=== PATIENT | female | born 1945 | race Caucasian/White ===

== ENCOUNTER 2018-11-11 14:00 | Outpatient (RCR) | payer MEDICARE, OTHER, SELFPAY ==
--- NOTE | 2018-08-05 16:04 | PR.REVALNOTE ---
Current Diagnoses Chronic obstructive pulmonary disease, unspecified (08/05/18) Provider Team Visit Care Team Role Provider Type Kurt Cartagena MD Attending Provider Physician Primary Care Provider Specialty: Family Practice Address: [address] [place], [address] Email: [email or web address] Re-Evaluation [facility] Pul[facility] Rehab. Re-Assessment Start: 06/07/18 08:21 Freq: Status: Active Protocol: Document 08/05/18 15:54 JWS (Rec: 08/05/18 16:03 [email or web address] [email or web address]) MS Exercise Re-Assessment New Session Number 1-10 Type Nustep Treadmill METs (resistance level) 2.54NS, 2.27TM % Improvement 8%NS, 8%TM Interval Training Yes: 3.60 METS NS Shortness of Breath with Exercise Yes Desaturation with Exercise No Free Weight Yes: 2# 12r 2s Band Level Yes: #3 Intervention initiate independent exercise 1-2x/week Toward Target Goals initiate independent exercise- goal not met MS Nutrition Re-Assessment Hypoxia Re-Assessment does not require supplemental oxygen MS Education Re-Assessment Topics Breathing Retraining Bronchial Hygiene Benefits of Exercise Activities of daily living/ Leisure Activities Goals Pt will Master PLB and Diaphragmatic Breathing Pt will Master Energy Conserving Techniques Pt will learn exercise safety Pt will continue ED topics until completion MS Psychosocial Re-Assessment Patient in Class Regularly Yes Progress Towards Goal patient attends 2x/week due to distance from MS gym Interventions Pt attending class regularly Additional Comment patient talked to about initiating independent exercise Goals Participate in social and educational discussion Received emotional support from family/friends
== END 2018-11-22 15:09 ==
LOC: PUL 14:00
PROVIDERS: PCP Family Medicine; Visit Provider Family Medicine
DX: J44.9 Chronic obstructive pulmonary disease, unspecified (principal)
CPT/HCPCS: G0424

== ENCOUNTER → 2018-12-30 14:10 | Outpatient (CLI) | payer MEDICARE, OTHER, SELFPAY ==
--- NOTE | 2018-12-30 | DI.RAD.S_ITS ---
PROCEDURE: XR HIP RT 1V INDICATIONS: LEFT KNEE PAIN, RT HIP PAIN TECHNIQUE: 2 views of the hip were acquired. COMPARISON: None. FINDINGS: Bones: No fractures or dislocations. No suspicious bony lesions. The visualized pelvic ring appears intact. There is severe hip joint degeneration bilaterally. Mild to moderate sacroiliac joint degeneration bilaterally is noted. Soft tissues: No suspicious soft tissue calcifications or masses. 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 Dictated by: Roland White M.D. on 12/30/2018 at 16:50 Approved by: Roland White M.D. on 12/30/2018 at 21:44
--- NOTE | 2018-12-30 | DI.RAD.S_ITS ---
PROCEDURE: XR KNEE LT 3V INDICATIONS: LEFT KNEE PAIN, RT HIP PAIN TECHNIQUE: 3 views of the knee were acquired. COMPARISON: None. FINDINGS: Bones: No fractures or dislocations. No suspicious bony lesions. There is severe tricompartmental knee joint degeneration. Soft tissues: Small joint effusion. No suspicious soft tissue calcifications. IMPRESSION: Severe tricompartmental knee joint degeneration. Dictated by: Roland White M.D. on 12/30/2018 at 16:48 Approved by: Roland White M.D. on 12/30/2018 at 16:49
== END ==
PROVIDERS: PCP Family Medicine; Visit Provider Family Medicine
DX: M25.562 Pain in left knee (principal); M25.551 Pain in right hip; M17.12 Unilateral primary osteoarthritis, left knee; M16.0 Bilateral primary osteoarthritis of hip; M47.898 Other spondylosis, sacral and sacrococcygeal region
CPT/HCPCS: 73501; 73562

== ENCOUNTER → 2019-03-15 11:59 | Outpatient (CLI) | payer MEDICARE, OTHER, SELFPAY ==
--- NOTE | 2019-03-15 | DI.MG.S_ITS ---
BILATERAL DIGITAL SCREENING MAMMOGRAM 3D/2D WITH CAD: 03/15/2019 CLINICAL: Routine screening. Family history of breast cancer. Comparison is made to exams dated: 02/06/2017 mammogram, 02/08/2015 mammogram, and 10/02/2011 mammogram - [facility]. There are scattered fibroglandular elements in both breasts. Current study was also evaluated with a Computer Aided Detection (CAD) system. No significant masses, calcifications, or other findings are seen in either breast. There has been no significant interval change. IMPRESSION: NEGATIVE There is no mammographic evidence of malignancy. A 1 year screening mammogram is recommended. This exam was interpreted at Station ID: [id number]. NOTE: For mammograms, a report in lay terms will be sent to the patient. Approximately 15% of breast malignancies will not be visualized mammographically. In the management of a palpable breast mass, a negative mammogram must not discourage biopsy of a clinically suspicious lesion. Electronically Signed By: Himanshu roca/alem:03/15/2019 17:47:53 letter sent: Normal Exam ACR BI-RADS Category 1: Negative [id number]
== END ==
PROVIDERS: Visit Provider Student in an Organized Health Care Education/Training Program
DX: Z12.31 Encounter for screening mammogram for malignant neoplasm of breast (principal); Z80.3 Family history of malignant neoplasm of breast
CPT/HCPCS: 77063; 77067

== ENCOUNTER → 2019-08-23 14:38 | Outpatient (CLI) | payer MEDICARE, OTHER, SELFPAY | PROVIDERS: PCP Student in an Organized Health Care Education/Training Program; Referring Provider Student in an Organized Health Care Education/Training Program; Visit Provider Student in an Organized Health Care Education/Training Program | DX: Z78.0 Asymptomatic menopausal state (principal); Z90.722 Acquired absence of ovaries, bilateral; Z87.891 Personal history of nicotine dependence; Z85.43 Personal history of malignant neoplasm of ovary | CPT/HCPCS: 77080 ==

== ENCOUNTER → 2020-11-14 12:17 | Outpatient (CLI) | payer MEDICARE, OTHER, SELFPAY ==
--- NOTE | 2020-11-14 | DI.RAD.S_ITS ---
PROCEDURE: XR KNEE LT 3V INDICATIONS: LEFT KNEE PAIN TECHNIQUE: 3 views of the knee were acquired. COMPARISON: [facility], CR, XR KNEE LT 3V, 12/30/2018, 14:18. FINDINGS: Bones: No fractures or dislocations. No suspicious bony lesions. Note is made of near severe medial compartment joint space narrowing with near ieag-os-gecw articulation. There is mild to moderate such degeneration at the lateral compartment and also at the patellofemoral joint. Soft tissues: No joint effusion. No suspicious soft tissue calcifications. IMPRESSION: Near severe medial compartment knee joint osteoarthritis, significantly less degenerative change is present over the remainder of the knee. Dictated by: Rebel Dang M.D. on 11/14/2020 at 13:53 Approved by: Rebel Dang M.D. on 11/14/2020 at 13:54
== END ==
PROVIDERS: PCP Student in an Organized Health Care Education/Training Program; Referring Provider Student in an Organized Health Care Education/Training Program; Visit Provider Student in an Organized Health Care Education/Training Program
DX: M25.562 Pain in left knee (principal); M17.12 Unilateral primary osteoarthritis, left knee
CPT/HCPCS: 73562

== ENCOUNTER → 2022-03-25 08:07 | Outpatient (CLI) | payer MEDICARE, OTHER, SELFPAY ==
--- NOTE | 2022-03-25 | DI.NM.S_ITS ---
PROCEDURE: NM BALBIR PERF SPECT R&S PHARM Rest and pharmacological stress myocardial perfusion SPECT with gated imaging and ejection fraction RADIOPHARMACEUTICAL: 12.1 mCi Tc-99m tetrafosmin IV at rest and 25.7 mCi Tc-99m tetrafosmin IV at peak effect of pharmacological stress. Dpm-dhg-yvimefps was performed. INDICATIONS: Other forms of dyspnea TECHNIQUE: Radiopharmaceutical was injected at peak stress test, and also at rest. SPECT images were obtained. SPECT myocardial perfusion images were displayed in short axis, horizontal long axis, and vertical long axis views. Gated images were reviewed using [email or web address] software. COMPARISON: None. CARDIAC STRESS: A pharmacologic stress test was performed under the supervision of an attending staff, using an infusion of lexiscan 0.4m IV X1. Hemodynamic data: There is normal blood pressure and heart rate response to pharmacologic stress. Symptoms: The patient denied anginal chest pain. Aminophylline: none EKG: No diagnostic changes of ischemia; no ectopy. FINDINGS: Raw data: There is good myocardial uptake of radiotracer. No significant motion artifacts. Left ventricle function: Gated images demonstrate normal left ventricular wall thickening. No segmental wall motion abnormalities. No transient ischemic dilation; TID is 0.92 (normal less than 1.3). Left ventricle resting end diastolic volume is 83 mL. Left ventricle stress ejection fraction is 91%; normal range is above 45%. Myocardial perfusion: There is normal distribution of activity in the right and left ventricular myocardium. No fixed or reversible perfusion defects. IMPRESSION: Low risk, normal pharmaceutical nuclear stress test 1) No perfusion evidence of ischemia or infarction. 2) Normal left ventricular size, wall motion, and systolic function (EF post stress 91%). 3) No angina during the study. 4) No ST changes with lexiscan. 5) No prior nuclear stress test available for comparison. Dictated by: Ibrahima Robert MD on 03/26/2022 at 13:58 Approved by: Ibrahima Robert MD on 03/26/2022 at 14:00
[2022-03-25 09:25] LABS: COVID19 -Nasal RAPID Negative (Negative)
== END ==
PROVIDERS: PCP Internal Medicine; Referring Provider Internal Medicine; Visit Provider Internal Medicine
DX: Z01.810 Encounter for preprocedural cardiovascular examination (principal); R06.09 Other forms of dyspnea; Z20.822 Contact with and (suspected) exposure to COVID-19
CPT/HCPCS: 78452; 87635; 93017; A9502; J2785

== ENCOUNTER → 2024-04-14 12:01 | Outpatient (CLI) | payer MEDICARE, OTHER, SELFPAY ==
--- NOTE | 2024-04-14 | DI.CT.S_ITS ---
PROCEDURE: CT UE RT WO CON INDICATIONS: Pain in right shoulder TECHNIQUE: Noncontrast 0.75 mm thick sections acquired from the acromioclavicular joint to the inferior scapula, with coronal and sagittal reformatting. COMPARISON: [facility] Outside Film, CR, XR SHOULDER 2+ VIEWS RIGHT, 04/01/2024, 14:26. FINDINGS: Image quality: Excellent. Bones: Moderate to severe acromioclavicular joint osteoarthritic changes are seen with near complete loss of joint space, extensive subchondral sclerosis and marginal osteophyte formation. Severely comminuted fracture involving humeral head is seen with fracture line extending to involve growth greater and lesser tuberosities. There is up to 7 mm superior and lateral displacement of greater tuberosity fractured fragment. Minimal medial displacement at lesser tuberosity fracture site is also seen. No other fracture or dislocation. No suspicious bony lesions. The visualized right upper to mid ribs are intact. Soft tissues: There is no definite full-thickness rotator cuff tendon rupture. No significant rotator cuff muscle atrophy is seen on sagittal images. There is moderate amount of joint effusion and subacromial subdeltoid bursal fluid suggestive of hemarthrosis. No calcified intra-articular loose bodies. The visualized right lung field is clear. IMPRESSION: 1. Acute comminuted and displaced fracture involving right proximal humeral shaft and humeral head as above. No other fracture or dislocation. No suspicious bony lesions. 2. Moderate to severe acromioclavicular joint osteoarthritis. 3. Moderate to large joint effusion and subacromial subdeltoid bursal fluid, no calcified loose bodies. No gross full-thickness rotator cuff tendon rupture. Dictated by: Diogo Marks M.D. on 04/14/2024 at 15:39 Approved by: Diogo Marks M.D. on 04/14/2024 at 15:43
== END ==
PROVIDERS: PCP Internal Medicine; Referring Provider Physician Assistant Medical; Visit Provider Physician Assistant Medical
DX: S42.351A Displaced comminuted fracture of shaft of humerus, right arm, initial encounter for closed fracture (principal); M19.011 Primary osteoarthritis, right shoulder; M25.511 Pain in right shoulder; M25.411 Effusion, right shoulder
CPT/HCPCS: 73200

== ENCOUNTER 2024-04-22 08:05 | Inpatient (IN) | payer MEDICARE, OTHER, SELFPAY ==
[2024-04-21 11:59] VITALS: BMI 32.9
[2024-04-22] VITALS (16 sets, daily range): BP systolic 128–164; BP diastolic 48–86; PULSE 84–118; RESP 14–22; TEMP 35.8–36.7; O2SAT 90–111; BMI 32.9; BMI 33.0
--- NOTE | 2024-04-22 | DI.RAD.S_ITS ---
PROCEDURE: XR SHOULDER RT 1V INDICATIONS: POST OP TECHNIQUE: Single views of the shoulder were acquired. COMPARISON: None. FINDINGS: Reverse total shoulder arthroplasty components are in place. The joint is grossly congruent on the single view. No unexpected fractures. Moderate degenerative change at the AC joint. Expected articular gas, fully inflated right lung, and overlying skin subhash are noted. IMPRESSION: Expected appearance post right reversed total shoulder arthroplasty Dictated by: Keila Oscar M.D. on 04/22/2024 at 16:11 Approved by: Keila Oscar M.D. on 04/22/2024 at 16:12
--- NOTE | 2024-04-22 | DI.RAD.S_ITS ---
PROCEDURE: XR SHOULDER LT 1V INDICATIONS: post op TECHNIQUE: Single views of the shoulder were acquired. COMPARISON: None. FINDINGS: Reverse total shoulder arthroplasty components are intact. The joint is grossly congruent. Impacted fracture at the surgical neck of the humerus is noted associated with the distal arthroplasty component. No evidence of shoulder separation. Expected articular gas, overlying skin subhash, and fully inflated left lung. IMPRESSION: Expected appearance of reverse total shoulder arthroplasty. Dictated by: Keila Oscar M.D. on 04/22/2024 at 16:09 Approved by: Keila Oscar M.D. on 04/22/2024 at 16:11
[2024-04-22] MEDS: LACTATED RINGERS 1,000 ML 42 ML IV (08:54)
[2024-04-22] MEDS: ACETAMINOPHEN 325 MG TABLET 975 MG PO (08:57)
--- NOTE | 2024-04-22 09:15 | PM.PREOP ---
Pre-operative Note Interval Note History & Physical reviewed/Exam performed by Physician: Yes Changes to H&P: No
--- NOTE | 2024-04-22 09:16 | EKG_ITS ---
[address] [address] Test Date: 2024-04-22 Pat Name: Sherin Carias Department: Room: 90F Gender: Female Regenerator Operator: Nancie CHANG : 1945 Requested By: Order Number: [id number] Reading MD: Zac Britton Measurements Intervals [place] Rate: 88 P: 67 OK: 156 QRS: 13 QRSD: 70 T: 24 QT: 350 QTc: 423 Interpretive Statements Sinus rhythm with marked sinus arrhythmia Electronically Signed On 04-25-2024 15:56:13 PDT by Zac Britton
[2024-04-22] MEDS: CEFAZOLIN 2 GM/100 ML PREMIX 100 ML IV ×2 (09:50→17:19)
[2024-04-22] MEDS: TRANEXAMIC ACID 1,000 MG in SODIUM CHLORIDE 0.9% 100 ML 200 MG IV ×2 (10:05→13:15)
--- NOTE | 2024-04-22 10:16 | SUR.OPER ---
Beach chair with Suman/Jeremy shoulder positioner. Lower body on padded OR bed. Head in foam padded head cradle, secured with straps. Non-operative arm secured <90 degrees abduction. Pillow under knees. Safety belt at thigh. Cloth tape over blanket over lower legs.
[2024-04-22] MEDS: BUPIVACAINE 0.25% (PF) 30 ML, EPINEPHrine 0.15 MG INJ (10:20)
[2024-04-22] MEDS: SODIUM CHLORIDE 0.9% 1,000 ML 42 ML IV (12:28)
--- NOTE | 2024-04-22 13:38 | PM.OP.1 ---
Operative Date/Time/Diagnoses Date of procedure: 04/22/24 Time of procedure: 13:38 Pre-op diagnosis: 1. Right proximal humerus fracture 2. Left proximal humerus fracture Post-op diagnosis: same Procedure & Clinicians Procedure: 1. Right reverse total shoulder arthroplasty for fracture 2. Left reverse total shoulder arthroplasty for fracture Same procedure as scheduled: Yes Indications: Indications: This is a 78-year-old female who has complex bilateral proximal humerus fractures. We discussed that in order to allow her to gain use of her shoulders prevent malunion and nonunion and avascular necrosis we would attempt to fix her left shoulder if not we would do a reverse, for her right shoulder due to the head splitting nature we were going to go straight to a reverse total shoulder arthroplasty. Risks and benefits were described including the risk of infection, bleeding, damage to internal structures including nerves. We also discussed the risk of failure of surgery and the need for revision surgery as well as the risk of anesthesia. The patient expressed understanding with these risks and wished to go forward with surgery. Surgeon: Valentín Monroy [employer] Export Clerk: Osiel Willingham Anesthesia Type: General Operative Notes Findings: Findings: Bilateral complex proximal humerus fracture with head splits Closure Type: primary Specimen(s): none sent Prosthetic devices, grafts, tissues, transplants, or devices: Tornier implants Right Base plate: standard 25 mm, +3 mm offset Glenosphere: Standard 36 mm Stem: Perform fracture stem size 14 Poly: +3 retentive Left Base plate: standard 25 mm, +3 mm offset Glenosphere: Standard 36 mm Stem: Perform fracture stem size 13 Poly: +3 retentive Estimated Blood Loss (mL): 400 Blood products transfused: none Procedure in detail: Patient was seen in the preoperative holding unit. The correct bilateral shoulders were identified and marked with my initials. Again we discussed the risks and benefits of surgery and they wished to go forward with surgery. The patient was brought back to the operating room and placed supine on the operating table. Smooth endotracheal intubation was performed by anesthesia. All prominences were padded and they were placed into the beach chair position. Intravenous antibiotics were given. The right shoulder was then prepped with the standard sterile preparation and draping. A time-out was then performed in my initials were again identified on the correct shoulder. 1 g of IV tranexamic acid was given. A standard deltopectoral incision was made. Skin flaps were made. The cephalic vein was identified and retracted laterally. This was protected throughout the remainder of the case. Sharp dissection was made along the deltoid, subacromial and subcoracoid space to release adhesions. The conjoined tendon was identified and the axillary nerve was palpated and continuous using the tug test. It was protected throughout the remainder of the case. A brown retractor was placed underneath the deltoid muscle and a darach retractor underneath the conjoint tendon. The subscapularis muscle was ntoed to be intact. The anterior circumflex artery and associated veins on the lower border of the subscapularis were identified and tied off using 0-Vicryl. The biceps tendon was identified in the bicipital groove. This was released from its sheath, and taken from its origin on the glenoid and tied into the pectoralis tendon for a solid tenodesis. I then performed a lesser tuberosity osteotomy. The coracohumeral ligament was released at the base of the coracoid. The shoulder was then dislocated. The humeral head was removed. The rotator cuff was noted to be intact. An intramedullary guide was used set at version of 20?. Using an oscillating saw a conservative humeral head cut was made for the remainder of the head. Impaction reamers were reamed up to a size 14 stem with a built-in angle of 140. A neck protector was placed. Attention was then turned to the glenoid. After retracting the humeral head posteriorly a circumferential release was performed of the capsule with protection of the axillary nerve. The labrum was then released starting at the biceps anchor and going around the rim a small amount of triceps was released from the inferior glenoid. A center guide pin was then placed using the guide, followed by Reamer. After adequate cartilage was removed the boss was reamed and the centeral hole was drilled and measured. The base plate was then implanted and screwed into place. The peripheral screws were then sequentially drilled, measured, and placed. A 36 standard glenosphere was then selected and screwed into place onto the base plate. Turning back to the humerus, the humeral head was delivered and trialed with a +3 retentive. The arm was taken through range of motion and this was felt to be stable. The trial was then removed and a dilute Betadine wash was then performed with 1 L of sterile saline. Before placing the final implant, drill holes were made in the bicipital groove for the subscapularis repair, and sutures were passed through the drill holes. The final stem was then impacted into the humerus. The shoulder was then reduced and again brought through range of motion and was felt to be stable. The lesser tuberosity osteotomy was then repaired using 3 modified racking hitch sutures. The deltopectoral interval was then closed with #2 Ethibond. The skin was closed with 2-0 vicryl and 3-0 Monocryl] followed by Aquacel dressing. Drapes were removed however the back table was kept sterile. Patient was then turned for the next procedure. Next procedure: Another timeout was performed and the left upper extremity was then prepped and draped in the standard sterile fashion. A standard deltopectoral incision was made in the left upper extremity. Skin flaps were made. The cephalic vein was identified and retracted laterally. This was protected throughout the remainder of the case. Sharp dissection was made along the deltoid, subacromial and subcoracoid space to release adhesions. The conjoined tendon was identified and the axillary nerve was palpated and continuous using the tug test. It was protected throughout the remainder of the case. A brown retractor was placed underneath the deltoid muscle and a darach retractor underneath the conjoint tendon. There was noted to be a 4 part fracture with a head split. The lesser tuberosity and greater tuberosity were freed of their adhesions and the humeral head was removed. The shaft was then broached up to a size 13 fracture stem. Attention was then turned to the glenoid. After retracting the humeral head posteriorly a circumferential release was performed of the capsule with protection of the axillary nerve. The labrum was then released starting at the biceps anchor and going around the rim a small amount of triceps was released from the inferior glenoid. A center guide pin was then placed using the guide, followed by Reamer. After adequate cartilage was removed the boss was reamed and the centeral hole was drilled and measured. The base plate was then implanted and screwed into place. The peripheral screws were then sequentially drilled, measured, and placed. A [36 standard] glenosphere was then selected and screwed into place onto the base plate. Turning back to the humerus, the humeral head was delivered and trialed with a +3 retentive. The arm was taken through range of motion and this was felt to be stable. The trial was then removed and a dilute Betadine wash was then performed with 1 L of sterile saline. Before placing the final implants, sutures were passed through the greater tuberosity and the shaft. The final implant was placed along with the polyethylene and the shoulder was reduced. The tuberosities were then repaired to each other and to the shaft. The skin was closed with 2-0 vicryl and [3-0 Monocryl] followed by Aquacel dressing. Patient was awoken from anesthesia and brought back to the postoperative recovery unit without issue. They were placed into a sling. Assisting participation: This operation could not have been safely performed (without compromising the technical results or length of the procedure) without the assistance of a skilled ophthalmology surgical technician. The ophthalmology surgical technician was medically necessary for proper positioning, retraction and manipulation of instruments, proper exposure, graft prep, and manipulation of tissue. Complications: none Post-operative Condition: stable Disposition: PACU Plan for aftercare: Postoperative instructions: Slings to remain on for 6 weeks. No external rotation past neutral for 6 weeks. Okay for the sling to come off for shower. Okay to shower over the Aquacel dressing. If any water gets underneath the dressing, remove the dressing. First postoperative visit in 2 weeks.
[2024-04-22] MEDS: OXYCODONE IR 5 MG TABLET PO (14:18)
[2024-04-22] MEDS: INSULIN REGULAR 100 UNIT/ML 3 ML VIAL IV (14:22)
[2024-04-22] MEDS: LACTATED RINGERS 1,000 ML 100 ML IV (15:19)
[2024-04-22 17:07] LABS: Add Manual Diff / Slide Review NO; Basophils Absolute Auto 100 /uL (0-100); Basophils Percent Auto 0.5 % (0-2); Eosinophils Absolute Auto 0 /uL (0-450); Hematocrit 27.6 % (36-46); Hemoglobin 8.8 g/dL (12.0-16.0); Lymphocytes Absolute Auto 1600 /uL (1100-4500); Lymphocytes Percent Auto 9.7 % (25-40); Mean Corpuscular HGB Conc 32.1 % (30-36); Mean Corpuscular Hemoglobin 29.3 PG (26-34); Mean Corpuscular Volume 91.3 fL (80-100); Monocytes Absolute Auto 1400 /uL (0-900); Monocytes Percent Auto 8.7 % (3-14); Neutrophils Absolute Auto 13000 /uL (1500-7000); Neutrophils Percent Auto 81.1 % (50-75); Platelet Count 537 X10^3/uL (150-400); Red Blood Cell Count 3.02 X10^6/uL (4.0-5.2); Red Cell Distribution Width 17.8 % (11.6-14.8)
[2024-04-22 17:18] LABS: Alanine Aminotransferase 15 IU/L (<35); Albumin 3.4 g/dL (3.5-5.0); Albumin Globulin Ratio 1.5 (1.0-2.8); Alkaline Phosphatase 146 U/L (38-126); Aspartate Aminotransferase 25 IU/L (14-36); BUN Creatinine Ratio 26.1 (6-22); Bilirubin Total 0.7 mg/dL (0.2-1.3); Blood Urea Nitrogen 31 mg/dL (7-17); Calcium 9.5 mg/dL (8.4-10.2); Carbon Dioxide 21 mmol/L (22-32); Chloride 103 mmol/L (98-107); Estimated Glomerular Filt Rate 46 mL/min (>60); Globulin 2.3 g/dL (1.7-4.1); Glucose 215 mg/dL (80-110); HEMOLYSIS 37 (0-50); Potassium 4.8 mmol/L (3.4-5.1); Sodium 136 mmol/L (137-145); Total Protein 5.7 g/dL (6.3-8.2)
[2024-04-22] MEDS: IBUPROFEN 400 MG TABLET PO (17:18)
--- NOTE | 2024-04-22 17:59 | PC.NURSE ---
patient request to have slings loosened off her neck, velcro straps unhooked.informed patient thet would need to be on when getting up. scd to right leg bp cuff to left leg. patient denies need for pain meds,wants to attempt to sleep.Call light within reach left hand.
--- NOTE | 2024-04-22 19:22 | PM.CN ---
History of Present Illness Consult details Date Patient Seen: 04/22/24 Time Patient Seen: 19:30 Chief complaint: INPT Reason for consult: Medical management Requesting provider: Valentín Monroy Narrative: 78-year-old woman under the primary care of Dr. Jesse Rossi underwent elective bilateral total shoulder arthroplasty today following bilateral proximal humeral fracture sustained in a recent fall in her garden at home on 04/01/2024, with uneventful surgical course. penitentiary facility placement is anticipated. She has type 2 diabetes mellitus, history of supraventricular tachycardia, hypertension and COPD, all of which have been stable and controlled. She is on Xarelto for history of possible left leg DVT following her left knee replacement last year. She is seen postoperatively without complaints, denying chest pain, breathing problems or nausea. Meds Home Medications and Allergies Home Medications Medication Instructions Recorded Confirmed Type cholecalciferol (vitamin D3) 125 125 mcg PO DAILY ##0 03/12/17 04/22/24 History mcg (5,000 unit) capsule omega [id number]-[id number]-fish oil 1,000 mg 1 cap PO DAILY ##0 03/12/17 04/21/24 History (120 mg-180 mg) capsule (Fish Oil) albuterol sulfate 90 mcg/actuation 2 puff inhalation 6XD PRN SOB 04/21/24 04/22/24 History aerosol inhaler atorvastatin 40 mg tablet 40 mg PO QPM 04/21/24 04/22/24 History glimepiride 4 mg tablet 4 mg PO DAILY 04/21/24 04/22/24 History hydrochlorothiazide 12.5 mg tablet 12.5 mg PO QAM 04/21/24 04/22/24 History losartan 25 mg tablet 25 mg PO DAILY 04/21/24 04/22/24 History metformin 1,000 mg tablet 1,000 mg PO BID 04/21/24 04/22/24 History rivaroxaban 10 mg tablet (Xarelto) 10 mg PO DAILY 04/21/24 04/21/24 History Allergies Allergy/AdvReac Type Severity Reaction Status Date / Time latex Allergy Mild ITCHING Verified 04/22/24 09:00 AND REDNESS oxycodone AdvReac Intermediate Nausea Verified 04/22/24 09:00 Review of Systems Review of Systems ROS: Yes All systems reviewed with the patient and are negative except as otherwise documented Exam Vital Signs (past 8 hours): - 04/22/24 13:47 04/22/24 13:55 04/22/24 14:05 Temperature 97.3 F L Pulse Rate 114 H 115 H 113 H Respiratory Rate 18 22 17 Blood Pressure 149/60 H 133/61 137/61 Pulse Oximetry 100 97 100 Oxygen Delivery Method Room Air Room Air Nasal Cannula Oxygen Flow Rate 04/22/24 14:10 04/22/24 14:24 04/22/24 14:32 Temperature Pulse Rate 94 H 104 H 109 H Respiratory Rate 19 17 14 Blood Pressure 148/48 H 130/79 156/75 H Pulse Oximetry 100 97 97 Oxygen Delivery Method Room Air Room Air Room Air Oxygen Flow Rate 04/22/24 14:46 04/22/24 14:55 04/22/24 15:05 Temperature 97.6 F 96.8 F L Pulse Rate 118 H 102 H 100 H Respiratory Rate 20 17 18 Blood Pressure 136/59 L 131/58 L 128/84 Pulse Oximetry 100 100 90 L Oxygen Delivery Method Room Air Room Air Oxygen Flow Rate 04/22/24 15:35 04/22/24 16:05 04/22/24 17:13 Temperature 96.4 F L 96.4 F L 96.6 F L Pulse Rate 96 H 108 H 97 H Respiratory Rate 19 16 18 Blood Pressure 145/77 H 145/74 H 141/73 H Pulse Oximetry 99 98 111 H Oxygen Delivery Method Oxygen Flow Rate 1 1 1 Oxygen Delivery Method Room Air Oxygen Flow Rate 1 Narrative Exam Narrative: GENERAL: This is a well-nourished, well-developed patient, in no apparent distress. EYES: Pupils equal round and reactive. Extraocular motions intact. No scleral icterus. No injection or drainage. ENT: Mucous membranes pink and moist. NECK: Trachea midline. No JVD, bruits or lymphadenopathy. Supple, nontender, no meningeal signs. CARDIOVASCULAR: Regular rate and rhythm without murmurs, gallops, or rubs. RESPIRATORY: Clear to auscultation. GASTROINTESTINAL: Abdomen soft, non-tender, nondistended. EXTREMITIES: No clubbing, cyanosis, or edema. MS: Bilateral arm slings in place, bilateral shoulder dressings are clean, dry and intact. NEUROLOGIC: Alert, oriented, speech fluent, full upper and lower motor strength, no focal deficits evident. DERMATOLOGIC: No rashes or skin lesions. Objective ECG Impression: Normal sinus rhythm with sinus arrhythmia at 88 beats per minute, no ischemic changes Imaging Right shoulder x-ray:: Radiologist's impression: Expected appearance post right reversed total shoulder arthroplasty Left shoulder x-ray:: Radiologist's impression: Expected appearance of reverse total shoulder arthroplasty. Labs 04/22/24 16:48 04/22/24 16:48 Labs: Laboratory Results - last 24 hr 04/22/24 16:48 WBC 16.0 H RBC 3.02 L Hgb 8.8 L Hct 27.6 L MCV 91.3 MCH 29.3 MCHC 32.1 RDW 17.8 H Plt Count 537 H Neut % (Auto) 81.1 H Lymph % (Auto) 9.7 L Andrew % (Auto) 8.7 Eos % (Auto) 0.0 L Baso % (Auto) 0.5 Neut # (Auto) 63526 H Lymph # (Auto) 1600 Andrew # (Auto) 1400 H Eos # (Auto) 0 Baso # (Auto) 100 Sodium 136 L Potassium 4.8 Chloride 103 Carbon Dioxide 21 L BUN 31 H Creatinine 1.19 H Estimated GFR 46 L BUN/Creatinine Ratio 26.1 H Glucose 215 H Hemoglobin A1c 7.0 H Calcium 9.5 Total Bilirubin 0.7 AST 25 ALT 15 Alkaline Phosphatase 146 H Total Protein 5.7 L Albumin 3.4 L Globulin 2.3 Albumin/Globulin Ratio 1.5 PFSH Medical History Scoliosis Gout Humerus fracture (04/01/24) Basal cell adenocarcinoma DVT (deep venous thrombosis) (~02/2023) SVT (supraventricular tachycardia) HLD (hyperlipidemia) COPD (chronic obstructive pulmonary disease) Osteoarthritis Chronic airway obstruction Rosacea Diabetes HTN (hypertension) Surgical History Hx of total knee arthroplasty (02/2023) H/O total hip arthroplasty H/O: hysterectomy History of gastric stapling Social History household members: none Tobacco & Substance Use Smoking Status: Former smoker alcohol intake: current Assessment & Plan Assessment & Plan narrative: 1. Bilateral humeral fractures, status post bilateral reverse total shoulder arthroplasty the 04/22/2024. Management per Orthopedics. 2. Diabetes mellitus, type 2. Appears well controlled. Diabetic diet, sliding scale insulin coverage in usual medications. 3. Hypertension. Stable. Continue routine medication. 4. Hyperlipidemia. Continue routine statin medication. 5. History of left leg DVT following knee replacement last year. Continue routine Xarelto. 6. COPD. Stable. Continue routine inhalers. 7. DVT prophylaxis: Addressed on Xarelto. 8. Code status: Full code. The patient states she also has advanced directives. I wish to thank Dr. Monroy for this consultation. The hospitalist service will follow during this hospitalization. Time-Based Coding :: [TOTAL MINUTES] spent with patient and on the chart (including review of chart, obtaining history, exam, reviewing outside data, placing orders, documenting exam and treatment plan, and counseling patient) on [DATE]. PROFEE Charge Codes Inpatient or Observation consultation: [id number]
[2024-04-22] MEDS: METFORMIN HCL 500 MG TABLET 1000 MG PO (20:35)
[2024-04-22] MEDS: DOCUSATE 100 MG CAPSULE PO (20:35)
[2024-04-22] MEDS: SENNOSIDES 8.6 MG TABLET 17.2 MG PO (20:36)
[2024-04-22] MEDS: INSULIN LISPRO 100 UNIT/ML 3ML VIAL SUBCUT (20:58)
[2024-04-23] VITALS (10 sets, daily range): BP systolic 115–144; BP diastolic 66–86; PULSE 76–115; RESP 18–27; TEMP 36.4–37.3; O2SAT 92–98
[2024-04-23] MEDS: LACTATED RINGERS 1,000 ML 100 ML IV ×2 (00:53→15:20)
[2024-04-23] MEDS: CEFAZOLIN 2 GM/100 ML PREMIX 100 ML IV (01:43)
[2024-04-23] MEDS: IBUPROFEN 400 MG TABLET PO ×4 (01:45→15:27)
[2024-04-23] MEDS: OXYCODONE IR 5 MG TABLET PO ×3 (06:32→17:25)
[2024-04-23 07:12] LABS: BUN Creatinine Ratio 23.8 (6-22); Blood Urea Nitrogen 29 mg/dL (7-17); Calcium 8.7 mg/dL (8.4-10.2); Carbon Dioxide 23 mmol/L (22-32); Chloride 103 mmol/L (98-107); Estimated Glomerular Filt Rate 45 mL/min (>60); Glucose 153 mg/dL (80-110); HEMOLYSIS < 15 (0-50); Potassium 4.3 mmol/L (3.4-5.1); Sodium 132 mmol/L (137-145)
[2024-04-23 07:20] LABS: Add Manual Diff / Slide Review NO; Basophils Absolute Auto 100 /uL (0-100); Basophils Percent Auto 0.9 % (0-2); Eosinophils Absolute Auto 0 /uL (0-450); Eosinophils Percent Auto 0.3 % (2-4); Lymphocytes Absolute Auto 1900 /uL (1100-4500); Lymphocytes Percent Auto 22.3 % (25-40); Mean Corpuscular HGB Conc 34.1 % (30-36); Mean Corpuscular Hemoglobin 30.3 PG (26-34); Monocytes Absolute Auto 1200 /uL (0-900); Monocytes Percent Auto 13.9 % (3-14); Neutrophils Absolute Auto 5400 /uL (1500-7000); Neutrophils Percent Auto 62.6 % (50-75); Platelet Count 449 X10^3/uL (150-400); Red Cell Distribution Width 16.9 % (11.6-14.8); White Blood Cell Count 8.7 X10^3/uL (4.5-11.0)
[2024-04-23 07:22] LABS: Hematocrit 20.5 % (36-46)
[2024-04-23] MEDS: INSULIN LISPRO 100 UNIT/ML 3ML VIAL SUBCUT ×3 (08:48→18:18)
--- NOTE | 2024-04-23 09:48 | PT-IP ANOTE ---
PT evarl received and EMR reviewed. pt with HGB of 7 and Hct of 20.5. spoke with nurse and pt will be receiving blood transfusion. hold PT this morning and will recheck after transfusion completed and H&H is stable.
[2024-04-23] MEDS: LOSARTAN 25 MG TABLET PO (10:32)
[2024-04-23] MEDS: RIVAROXABAN 10 MG TABLET PO (10:32)
[2024-04-23] MEDS: METFORMIN HCL 500 MG TABLET 1000 MG PO ×2 (10:32→18:18)
[2024-04-23] MEDS: hydroCHLOROthiazide 25 MG TABLET 12.5 MG PO (10:34)
[2024-04-23] MEDS: SODIUM CHLORIDE 0.9% FLUSH 10 ML IV ×2 (10:35→20:43)
--- NOTE | 2024-04-23 12:19 | CM.DANOTE ---
DCP Assessment Note: Pt is a 78yo female, resident of [place], is admitted for bilateral TSA. Pt lives in a house alone. Pt's Primary Care Provider is Dr. Jesse Rossi and insurance is Medicare and [facility]. Reviewed chart and team rounds for pt's medical status and initial discharge needs. DCP met w/patient at bedside; introduced self and role. Patient was found in bed, alert and oriented, cooperative with assessment. Pt confirmed living situation and good support in family who are local. Pt expressed preference in SNF Rehab, preferably [facility]. Pt able to identify [facility] in [place] as an alternate option but would really like to stay in [place]. Pt has a no history of SNF Rehab or Home health. Pt agreeable to working with therapies and following their recommendations. Pt verbalized understanding that she will have to wait 3 midnights for Medicare SNF benefit to be activated. PT eval held today due to H/H and pending blood transfusion. Plan: Awaiting PT/OT evaluations and recommendation for evolving discharge plans, Anticipating SNF Rehab. CM team will follow closely for coordination of discharge plans. JAKE Suero Discharge Planning/Care Management CM Discharge Assessment Start: 04/23/24 12:16 Freq: Status: Active Protocol: Document 04/23/24 12:17 MW (Rec: 04/23/24 12:19 MW [id number]) Discharge Planning Assessment Assigned Contact Acid Plant Operator Helper ROBSON Pal DPOA/Assigned Designee Name Elias Dc Contact Information [phone] Advance Directives? Yes Advance Directives on File No History Provided By Patient Has Patient been admitted in last 30 No days? Prior Living Arrangements House Household Members none Type of transporation used prior to Drives own vehicle admit Independent with ADL's Yes Is patient alert and oriented? Yes Caregiver for Another No DME Already Rented / Owned Cane Patient/Family Preference [facility] Facility Comment Preference for [facility] , would consider [facility] ([place]). Barriers to Discharge No Discharge Plan [facility] Facility Referrals Initiated [facility] If patient plan is SNF: Has PASSR been Yes completed? Medicare Choice List Provided Yes Medicare choice list reviewed on patient electronic tablet with SNF/HH Preference 1. [facility] 2. [facility] [place] Whiteboard Updated in Patient Room with Yes name and ext. # of Contact Acid Plant Operator Helper Comment [phone] Review Status In Process Please Provide Date Initial DC 04/23/24 Assessment Was Performed Next Review Type Continued Stay Review
--- NOTE | 2024-04-23 12:22 | PM.PNPO.1 ---
Subjective Subjective Interval history: Sherin is a pleasant 78 year old female who is POD#1 s/p bilateral reverse total shoulder arthroplasties for bilateral humerus fractures by Dr. Monroy. Patient is postoperative H&H was 7.0 and 20.5 this morning, hospitalist ordered 1 unit PRBC for patient which she is currently getting. She is mildly tachypneic and tachycardic, suspect related to anemia at this time. This morning patient report she is doing okay. Pain is moderate but well controlled w/ oral pain medication. She denies any numbness or tingling to either UE. Patient lives alone and therefore plans to d/c to SNF for initial rehab. Denies fever, chills, chest pain, SOB, nausea, vomiting. Slightly lightheaded. Exam Vital Signs (past 8 hours): - 04/23/24 07:00 04/23/24 10:32 04/23/24 12:16 Temperature 97.5 F L 98.7 F Pulse Rate 104 H 104 H 114 H Respiratory Rate 21 27 H Blood Pressure 137/67 137/67 122/73 Pulse Oximetry 98 Oxygen Flow Rate 2 Fraction of Inspired Oxygen 24 SaO2/FiO2 Ratio 400 Oxygen Delivery Method Nasal Cannula Oxygen Flow Rate 2 Narrative Exam Narrative: Patient lying comfortably in bed during our interview today. No acute distress. AOx3. Patient currently getting a blood transfusion. Grossly normal alignment of bilateral upper extremities. Bilateral shoulder slings in place. 5/5 strength with DF, PF, EHL bilaterally. Finger adduction, abduction and business administration program chair intact. Gross sensation intact throughout bilateral upper extremities. Calves soft and compressible bilaterally. SCDs are on and functioning. Brisk capillary refill, pulses intact. Post-surgical Aquacel dressings are clean, dry and intact over bilateral anterior shoulders without drainage. Objective Labs 04/23/24 06:50 04/23/24 06:50 Labs: Laboratory Results - last 24 hr 04/22/24 04/23/24 04/23/24 16:48 06:50 10:10 WBC 16.0 H 8.7 RBC 3.02 L 2.30 L Hgb 8.8 L 7.0 L Hct 27.6 L 20.5 L* MCV 91.3 89.0 MCH 29.3 30.3 MCHC 32.1 34.1 RDW 17.8 H 16.9 H Plt Count 537 H 449 H Neut % (Auto) 81.1 H 62.6 Lymph % (Auto) 9.7 L 22.3 L [place] % (Auto) 8.7 13.9 Eos % (Auto) 0.0 L 0.3 L Baso % (Auto) 0.5 0.9 Neut # (Auto) 35321 H 5400 Lymph # (Auto) 1600 1900 [place] # (Auto) 1400 H 1200 H Eos # (Auto) 0 0 Baso # (Auto) 100 100 Sodium 136 L 132 L Potassium 4.8 4.3 Chloride 103 103 Carbon Dioxide 21 L 23 BUN 31 H 29 H Creatinine 1.19 H 1.22 H Estimated GFR 46 L 45 L BUN/Creatinine Ratio 26.1 H 23.8 H Glucose 215 H 153 H Hemoglobin A1c 7.0 H Calcium 9.5 8.7 Total Bilirubin 0.7 AST 25 ALT 15 Alkaline Phosphatase 146 H Total Protein 5.7 L Albumin 3.4 L Globulin 2.3 Albumin/Globulin Ratio 1.5 Blood Type A Positive Antibody Screen Negative Crossmatch See Detail [facility] Medical History Scoliosis Gout Humerus fracture (04/01/24) Basal cell adenocarcinoma DVT (deep venous thrombosis) (~02/2023) SVT (supraventricular tachycardia) HLD (hyperlipidemia) COPD (chronic obstructive pulmonary disease) Osteoarthritis Chronic airway obstruction Rosacea Diabetes HTN (hypertension) Surgical History Hx of total knee arthroplasty (02/2023) H/O total hip arthroplasty H/O: hysterectomy History of gastric stapling Social History household members: none Smoking Status: Former smoker alcohol intake: current Assessment & Plan Post-op Postoperative Procedures: Procedures Operation Date: 04/22/24 09:45 Actual Procedure Side Surgeon p Right reverse total shoulder arthroplasty with biceps tenodesis Right Valentín Monroy MD s Left reverse total shoulder arthroplasty with biceps tenodesis Left Valentín Monroy MD Postoperative plan narrative: 1) Plan to discharge to SNF once available and she is medically stable. Will continue to monitor tachycardia, tachypnea and H&H. 2) Continue multimodal pain management with ice to the shoulders for additional pain control. 3) Xarelto 10mg for DVT prophylaxis. 4) May work w/ physical therapy on appropriate exercises as tolerated in accordance with Dr. Monroy post-op protocol. Remain in sling w/ no ER past neutral for 6 weeks. No AROM at this time. 5) Keep dressings intact, clean, dry until 2 week postop appointment. No soaking the incision site in pools or tubs. No topical ointments or creams to the incision site. 6) Follow up at [facility] in 2 weeks for a postop appointment and wound check. All patient's questions were answered, she demonstrates understanding and is in agreement with the plan. Call our office if any questions or concerns arise. Quality VTE Deep Vein Thrombosis/Pulmonary Embolism Present on Admission: No
--- NOTE | 2024-04-23 12:49 | P.PN_ITS ---
Subjective Subjective Date Patient Seen: 04/23/24 Time Patient Seen: 10:35 Interval history: 78-year-old woman under the primary care of Dr. Jesse Rossi underwent elective bilateral total shoulder arthroplasty today following bilateral proximal humeral fracture sustained in a recent fall in her garden at home on 04/01/2024, with uneventful surgical course. senior living facility placement is anticipated. She has type 2 diabetes mellitus, history of supraventricular tachycardia, hypertension and COPD, all of which have been stable and controlled. She is on Xarelto for history of possible left leg DVT following her left knee replacement last year. She is seen postoperatively without complaints, denying chest pain, breathing problems or nausea. Interval history: Patient has no complaints today. She notes only mild shoulder pain. hematocrit returned at 20.5% this morning. Exam Vital Signs (past 8 hours): - 04/23/24 07:00 04/23/24 10:32 04/23/24 11:00 Temperature 97.5 F L 98.7 F Pulse Rate 104 H 104 H 113 H Respiratory Rate 21 27 H Blood Pressure 137/67 137/67 122/73 Pulse Oximetry 98 92 Oxygen Flow Rate 2 0 04/23/24 12:16 04/23/24 12:36 Temperature 98.7 F 99.1 F Pulse Rate 114 H 115 H Respiratory Rate 27 H 24 Blood Pressure 122/73 126/66 Pulse Oximetry Oxygen Flow Rate Fraction of Inspired Oxygen 24 SaO2/FiO2 Ratio 400 Oxygen Delivery Method Nasal Cannula Oxygen Flow Rate 0 Narrative Exam Narrative: GENERAL: This is a well-nourished, well-developed patient, in no apparent distress. EYES: Pupils equal round and reactive. Extraocular motions intact. No scleral icterus. No injection or drainage. ENT: Mucous membranes pink and moist. NECK: Trachea midline. No JVD, bruits or lymphadenopathy. Supple, nontender, no meningeal signs. CARDIOVASCULAR: Regular rate and rhythm without murmurs, gallops, or rubs. RESPIRATORY: Clear to auscultation. GASTROINTESTINAL: Abdomen soft, non-tender, nondistended. EXTREMITIES: No clubbing, cyanosis, or edema. MS: Bilateral arm slings in place, bilateral shoulder dressings are clean, dry and intact. NEUROLOGIC: Alert, oriented, speech fluent, full upper and lower motor strength, no focal deficits evident. DERMATOLOGIC: No rashes or skin lesions. Objective Labs 04/23/24 06:50 04/23/24 06:50 Labs: Laboratory Results - last 24 hr 04/22/24 04/23/24 04/23/24 16:48 06:50 10:10 WBC 16.0 H 8.7 RBC 3.02 L 2.30 L Hgb 8.8 L 7.0 L Hct 27.6 L 20.5 L* MCV 91.3 89.0 MCH 29.3 30.3 MCHC 32.1 34.1 RDW 17.8 H 16.9 H Plt Count 537 H 449 H Neut % (Auto) 81.1 H 62.6 Lymph % (Auto) 9.[address] [place] % (Auto) 8.7 13.9 Eos % (Auto) 0.0 L 0.3 L Baso % (Auto) 0.5 0.9 Neut # (Auto) 62281 H 5400 Lymph # (Auto) [address] [place] # (Auto) 1400 H 1200 H Eos # (Auto) 0 0 Baso # (Auto) 100 100 Sodium 136 L 132 L Potassium 4.8 4.3 Chloride 103 103 Carbon Dioxide 21 L 23 BUN 31 H 29 H Creatinine 1.19 H 1.22 H Estimated GFR 46 L 45 L BUN/Creatinine Ratio 26.1 H 23.8 H Glucose 215 H 153 H Hemoglobin A1c 7.0 H Calcium 9.5 8.7 Total Bilirubin 0.7 AST 25 ALT 15 Alkaline Phosphatase 146 H Total Protein 5.7 L Albumin 3.4 L Globulin 2.3 Albumin/Globulin Ratio 1.5 Blood Type A Positive Antibody Screen Negative Crossmatch See Detail [facility] Medical History Scoliosis Gout Humerus fracture (04/01/24) Basal cell adenocarcinoma DVT (deep venous thrombosis) (~02/2023) SVT (supraventricular tachycardia) HLD (hyperlipidemia) COPD (chronic obstructive pulmonary disease) Osteoarthritis Chronic airway obstruction Rosacea Diabetes HTN (hypertension) Surgical History Hx of total knee arthroplasty (02/2023) H/O total hip arthroplasty H/O: hysterectomy History of gastric stapling Social History household members: none Smoking Status: Former smoker alcohol intake: current Assessment & Plan Assessment & Plan narrative: 1. Bilateral humeral fractures, status post bilateral reverse total shoulder arthroplasty the 04/22/2024. Management per Orthopedics. 2. Postoperative anemia due to surgery. Transfuse 1 unit packed red blood cell. Likely accounts for mild tachycardia. 3. Diabetes mellitus, type 2. Appears well controlled with hemoglobin A1c 7.0% on admission. Diabetic diet, sliding scale insulin coverage in usual medications. 3. Hypertension. Stable. Continue routine medication. 4. Hyperlipidemia. Continue routine statin medication. 5. History of left leg DVT following knee replacement last year. Continue routine Xarelto. 6. COPD. Stable. Continue routine inhalers. 7. DVT prophylaxis: Addressed on Xarelto. 8. Code status: Full code. The patient states she also has advanced directives. I wish to thank Dr. Monroy for this consultation. The hospitalist service will follow during this hospitalization. Time-Based Coding :: [TOTAL MINUTES] spent with patient and on the chart (including review of chart, obtaining history, exam, reviewing outside data, placing orders, documenting exam and treatment plan, and counseling patient) on [DATE]. Quality VTE Deep Vein Thrombosis/Pulmonary Embolism Present on Admission: No IH PROFEE Charge codes Subsequent inpatient/observation care: [id number]
[2024-04-23] MEDS: CHOLECALCIFEROL (VITAMIN D3) 5,000 UNIT TABLET 5000 UNIT PO (13:57)
[2024-04-23] MEDS: DOCUSATE 100 MG CAPSULE PO ×2 (13:57→20:41)
[2024-04-23] MEDS: GLIMEPIRIDE 2 MG TABLET 4 MG PO (13:58)
--- NOTE | 2024-04-23 15:06 | CM.DPC ---
DCP SNF Planning: Per DCP Assessment, SW made referral to [facility]) [facility]) [facility] and both reviewing. PASRR done in anticipation of SNF. PT still pending due to H&H and pt getting unit of blood. ROBSON Ulloa
[2024-04-23 16:04] LABS: Hematocrit 26.2 % (36-46); Hemoglobin 8.8 g/dL (12.0-16.0)
--- NOTE | 2024-04-23 16:45 | PT.IIE ---
Current Diagnoses Other specific arthropathies, not elsewhere classified, right shoulder (04/22/24) Other displaced fracture of upper end of left humerus, initial encounter for closed fracture (04/22/24) Surgery Performed Operation Date: 04/22/24 09:45 Actual Procedures p Right reverse total shoulder arthroplasty with biceps tenodesis(Right) - Valentín Monroy MD s Left reverse total shoulder arthroplasty with biceps tenodesis(Left) - Valentín Monroy MD Surgical History (Last Reviewed 04/23/24 @ 12:50 by Doyle Walsh MD) H/O total hip arthroplasty H/O: hysterectomy History of gastric stapling Hx of total knee arthroplasty (02/2023) Medical History (Last Reviewed 04/23/24 @ 12:50 by Doyle Walsh MD) Basal cell adenocarcinoma Chronic airway obstruction COPD (chronic obstructive pulmonary disease) Diabetes DVT (deep venous thrombosis) (~02/2023) Gout HLD (hyperlipidemia) HTN (hypertension) Humerus fracture (04/01/24) Osteoarthritis Rosacea Scoliosis SVT (supraventricular tachycardia) Physical Therapy Inpatient Evaluation/Re-Eval M1 PT/OT-IP Prior Functional Status Start: 04/23/24 17:57 Freq: NEEDED Status: Active Protocol: Document 04/23/24 16:45 AB (Rec: 04/23/24 18:12 AB [id number]) Medical Review Prior Functional Status Medical History Reviewed Yes Communication able to make needs known Mobility and Gait pt stated that she was independent with all mobilities and ambulation without AD Social History Household Members none Living Arrangements House Number of Floors (Floors) One Floor Number of Stairs To Enter/Railing? 2 steps R rail ascending Home Environment Standard Height Toilet,Walk in Shower,Built-In Shower Seat Home Equipment Hand Held Shower,Grab Bars In Shower Additional Social History Comment pt has a reclincer at home that she can sleep on M2 PT-IP Current Condition Start: 04/23/24 17:57 Freq: NEEDED Status: Active Protocol: Document 04/23/24 16:45 AB (Rec: 04/23/24 18:12 AB [id number]) Physical Therapy Current Condition Current Condition Evaluation Date 04/23/24 Treatment Diagnosis B humeral fx s/p TSA reverse; difficulty in walking Onset Date 04/22/24 M3 PT-IP Subjective Start: 04/23/24 17:57 Freq: NEEDED Status: Active Protocol: Document 04/23/24 16:45 AB (Rec: 04/23/24 18:12 AB [id number]) Subjective Physical Therapy Visit Type Type Initial Evaluation Visit Start Time 16:45 Visit Stop Time 17:55 Number of PLASTERER TENDER Visits 0 Physical Therapy Visit Comments Patient Comments agreeable to do PT Therapy Pain Assessment Pain When Pain Assessed At Rest Pain Present Pain Present Pain Reported Location Bilateral Shoulder Intensity 2 Scale Used increases with mobility Pain Behaviors Facial Grimacing,Guarding, Wincing Pain Management Techniques Distraction,Modification of Treatment,Re-positioning, Timing of Activity with Medications M4 PT-IP Mobility and Gait Start: 04/23/24 17:57 Freq: NEEDED Status: Active Protocol: Document 04/23/24 16:45 AB (Rec: 04/23/24 18:12 AB [id number]) PT-Bed Mobility Assessment Supine to Sit Supine to Sit Maximum Assistance,Head of Bed Elevated Scooting Scooting to Edge of Bed Dependent PT-Transfer Assessment Sit to and From Stand Sit to and from Stand Moderate Assistance,Maximum Assistance,1 Person Assistance ,Use of Upper Extremities Equipment Transfer Assistive Device None,Gait Belt Orthotic/Prosthetic Devices or Brace: Yes Transfers Transfer Destination Toilet Transfer Technique ambulated Transfer Ability Level of Assist Moderate Assistance,Maximum Assistance,1 Person Assistance ,Use of Upper Extremities Comments Mobility Comments pt supine in bed and agreed to do PT. pt's Hgb 8.8 and hct 26.2 after blood transfusion. post-op handout provided to pt. educated pt on shoulder precautions. pt completed supine to sit max A and max cues with HOB elevated. pt is total A for scooting to EOB. assisted pt with gown management and sling adjustment. educated pt on elbow/wrist/hand exercises but pt unable to do much due to increase pain. positioned sling on pt. pt completed sit to stand from EOB mod A and cues and was able to take steps to transfer to chair without AD mod to max A and max cues. pt with increase forward trunk flexion. cued to correct but stated that she cannot because that is how she balances herself. pt requested to use the toilet. completed sit to stand from the chair x 2 attempts max A and max cues. pt ambulated to the toilet mod to max A and cues. max A for controlled descent to the toilet. completed sit to stand from the toilet max A and cues. nurse assisted pt with hygiene care and brief management. pt ambulated to the chair without AD max A and cues. c/o feeling tired and increase unsteadiness with ambulation to chair. positioned pt on the chair. call light and table placed within reach. Gait Assessment Gait Gait Assistance Required: Moderate Assistance,Maximum Assistance Distance (Feet) 15 Able to Maintain Weight Bearing Status Yes During Gait Assistive Devices Assistive Device None,Gait Belt Orthotic/Prosthetic Devices or Brace: Yes Gait Deviations General Gait Pattern Ataxic,Decreased Stride Length ,Decreased Feet Clearance, Flexed Trunk,Step-to Gait Factors Limiting Gait Function Factors Limiting Gait Function Decreased Activity Tolerance, Decreased Strength,Limited Range of Motion,Pain,Poor Balance,Poor Safety Awareness PT-Balance Assessment Sitting Balance and Reactions Static Sitting Balance Ability Good Dynamic Sitting Balance Ability Fair Standing Balance and Reactions Static Standing Balance Ability Poor Dynamic Standing Balance Ability Poor Device Used FWW M5 PT-IP Objective Assessments Start: 04/23/24 17:57 Freq: NEEDED Status: Active Protocol: Document 04/23/24 16:45 AB (Rec: 04/23/24 18:12 AB [id number]) Orientation Orientation/Cognition Level of Alertness Alert Orientation Name,Place,Situation Language Function Ability Hard of Hearing Safety Awareness Decreased Safety Awareness Memory Description No Deficits Noted Gross Range of Motion Lower Extremity ROM Assessment Within Functional Limits Strength Lower Extremity Strength Assessment Within Functional Limits Muscle Tone Muscle Tone WNL Yes M6 PT-IP Treatment Start: 04/23/24 17:57 Freq: NEEDED Status: Active Protocol: Document 04/23/24 16:45 AB (Rec: 04/23/24 18:12 AB [id number]) Physical Therapy Treatment Exercises Exercises Elbow Flexion/Extension,Wrist ROM,Hand ROM Education Education Provided Precautions,Weight Bearing Status,Post-Op Packet,Safety M7 PT-IP Assessment and Plan Start: 04/23/24 17:57 Freq: NEEDED Status: Active Protocol: Document 04/23/24 16:45 AB (Rec: 04/23/24 18:12 AB [id number]) PT Summary Assessment and Plan Potential Rehabilitation Potential Fair Status of Condition at Evaluation Evolving Summary Impairments Pain,ROM,Strength,Balance, Coordination,Sensation,Tone, Cognition,Bed Mobility, Transfers,Gait,Activity Tolerance Assessment Summary pt is an 78 y/o F s/p fall sustaining a bilateral proximal humeral fractures. pt underwent bilateral TSA reverse POD 1. pt has bilateral shoulder precautions and is NWB on BUE. pt requiring mod to max A with mobility and needs assist with ADLS. pt will require SNF rehab . Goals Bed Mobility Goal Minimal Assistance Transfer Goal Minimal Assistance Gait Goal Minimal Assistance Gait Distance 50 Other Goals improve bed mobility, transfers and ambulation without AD SBA ~ 100 ft up/down 2 steps SBA Days to Meet Goals 10 Frequency of Treatment Other frequency 1-2x/day Treatment Plan Physical Therapy Treatment Plan Bed Mobility Training,Transfer Training,Gait Training, Therapeutic Exercise,Balance Retraining,Post Op Education, Discharge Planning,Hot or Cold Pack,Neuromuscular Re-ed, Coordination Retraining,Manual Therapy Precautions Shoulder Precautions Sling,PROM,Internal Rotation to Body,No External Rotation, No Abduction,Forward Flexion to 90 degrees,Pendulums Weight Bearing Status Weight Bearing Status Non-Weight Bearing Allowed Weight Bearing Amount (enter % BUE NWB or #) (%) Recommendations To Nursing Amount of Assist Needed 2 Person Assist Discharge Recommendations PT Discharge Recommendations SNF Rehab Transportation Needs at Discharge Wheelchair/Cabulance
[2024-04-23] MEDS: ATORVASTATIN 20 MG TABLET 40 MG PO (18:18)
[2024-04-23] MEDS: SENNOSIDES 8.6 MG TABLET 17.2 MG PO (20:41)
[2024-04-24] VITALS (8 sets, daily range): BP systolic 112–152; BP diastolic 58–76; PULSE 74–117; RESP 16–24; TEMP 36.6–37.2; O2SAT 95–97
[2024-04-24] MEDS: IBUPROFEN 400 MG TABLET PO ×2 (01:04→09:14)
[2024-04-24 06:13] LABS: Add Manual Diff / Slide Review NO; Basophils Absolute Auto 0 /uL (0-100); Basophils Percent Auto 0.6 % (0-2); Eosinophils Absolute Auto 100 /uL (0-450); Eosinophils Percent Auto 1.4 % (2-4); Hematocrit 22.4 % (36-46); Hemoglobin 7.6 g/dL (12.0-16.0); Lymphocytes Absolute Auto 1500 /uL (1100-4500); Lymphocytes Percent Auto 19.2 % (25-40); Mean Corpuscular HGB Conc 33.9 % (30-36); Mean Corpuscular Hemoglobin 29.6 PG (26-34); Mean Corpuscular Volume 87.3 fL (80-100); Monocytes Absolute Auto 1100 /uL (0-900); Monocytes Percent Auto 14.2 % (3-14); Neutrophils Absolute Auto 5000 /uL (1500-7000); Neutrophils Percent Auto 64.6 % (50-75); Platelet Count 349 X10^3/uL (150-400); Red Blood Cell Count 2.57 X10^6/uL (4.0-5.2); White Blood Cell Count 7.7 X10^3/uL (4.5-11.0)
[2024-04-24] MEDS: INSULIN LISPRO 100 UNIT/ML 3ML VIAL SUBCUT ×3 (08:50→17:14)
[2024-04-24] MEDS: LOSARTAN 25 MG TABLET PO (09:13)
[2024-04-24] MEDS: RIVAROXABAN 10 MG TABLET PO (09:13)
[2024-04-24] MEDS: CHOLECALCIFEROL (VITAMIN D3) 5,000 UNIT TABLET 5000 UNIT PO (09:13)
[2024-04-24] MEDS: hydroCHLOROthiazide 25 MG TABLET 12.5 MG PO (09:15)
[2024-04-24] MEDS: METFORMIN HCL 500 MG TABLET 1000 MG PO ×2 (09:15→17:57)
[2024-04-24] MEDS: DOCUSATE 100 MG CAPSULE PO ×2 (09:15→20:43)
[2024-04-24] MEDS: SODIUM CHLORIDE 0.9% FLUSH 10 ML IV ×2 (09:16→20:43)
--- NOTE | 2024-04-24 10:12 | P.PN_ITS ---
Exam Vital Signs (past 8 hours): - 04/24/24 03:00 04/24/24 07:00 04/24/24 09:13 Temperature 98.8 F 97.9 F Pulse Rate 74 107 H 107 H Respiratory Rate 18 16 Blood Pressure 112/66 145/58 H 145/58 H Pulse Oximetry 96 97 Oxygen Flow Rate 0 0 Fraction of Inspired Oxygen 24 SaO2/FiO2 Ratio 400 Oxygen Delivery Method Room Air Oxygen Flow Rate 0 Objective Labs 04/24/24 05:37 04/23/24 06:50 Labs: Laboratory Results - last 24 hr 04/23/24 04/23/24 04/24/24 10:10 16:00 05:37 WBC 7.7 RBC 2.57 L Hgb 8.8 L 7.6 L Hct 26.2 L 22.4 L MCV 87.3 MCH 29.6 MCHC 33.9 RDW 17.0 H Plt Count 349 Neut % (Auto) 64.6 Lymph % (Auto) 19.2 L [place] % (Auto) 14.2 H Eos % (Auto) 1.4 L Baso % (Auto) 0.6 Neut # (Auto) 5000 Lymph # (Auto) 1500 [place] # (Auto) 1100 H Eos # (Auto) 100 Baso # (Auto) 0 Blood Type A Positive Antibody Screen Negative Crossmatch See Detail [facility] Medical History Scoliosis Gout Humerus fracture (04/01/24) Basal cell adenocarcinoma DVT (deep venous thrombosis) (~02/2023) SVT (supraventricular tachycardia) HLD (hyperlipidemia) COPD (chronic obstructive pulmonary disease) Osteoarthritis Chronic airway obstruction Rosacea Diabetes HTN (hypertension) Surgical History Hx of total knee arthroplasty (02/2023) H/O total hip arthroplasty H/O: hysterectomy History of gastric stapling Social History household members: none Smoking Status: Former smoker alcohol intake: current Assessment & Plan Assessment & Plan narrative: Patient is admitted after surgery. POD#2 s/p bilateral TSA. Patient has been stable and progressing with physical therapy. Patient is neurovascularly intact on exam. Patient has no signs or symptoms of DVT. Patient's dressing is clean dry and intact. Continue PT/OT and medical management. Added tylenol for pain control. D/c to SNF when space becomes available. Time-Based Coding :: [TOTAL MINUTES] spent with patient and on the chart (including review of chart, obtaining history, exam, reviewing outside data, placing orders, documenting exam and treatment plan, and counseling patient) on [DATE]. Quality VTE Deep Vein Thrombosis/Pulmonary Embolism Present on Admission: No
--- NOTE | 2024-04-24 11:26 | PT.IPTN ---
Current Diagnoses Other specific arthropathies, not elsewhere classified, right shoulder (04/22/24) Other displaced fracture of upper end of left humerus, initial encounter for closed fracture (04/22/24) Surgery Performed Operation Date: 04/22/24 09:45 Actual Procedures p Right reverse total shoulder arthroplasty with biceps tenodesis(Right) - Valentín Monroy MD s Left reverse total shoulder arthroplasty with biceps tenodesis(Left) - Valentín Monroy MD Physical Therapy Treatment Note M2 PT-IP Current Condition Start: 04/23/24 17:57 Freq: NEEDED Status: Active Protocol: Document 04/23/24 16:45 AB (Rec: 04/23/24 18:12 AB [id number]) Physical Therapy Current Condition Current Condition Evaluation Date 04/23/24 Treatment Diagnosis B humeral fx s/p TSA reverse; difficulty in walking Onset Date 04/22/24 M3 PT-IP Subjective Start: 04/23/24 17:57 Freq: NEEDED Status: Active Protocol: Document 04/24/24 11:08 KS (Rec: 04/24/24 12:37 KS [id number]) Subjective Physical Therapy Visit Type Type Treatment Note Visit Start Time 11:08 Visit Stop Time 11:26 Number of WELL TESTING OPERATOR Visits 1 Physical Therapy Visit Comments Patient Comments agreeable to do PT M4 PT-IP Mobility and Gait Start: 04/23/24 17:57 Freq: NEEDED Status: Active Protocol: Document 04/24/24 11:08 KS (Rec: 04/24/24 12:37 KS [id number]) PT-Bed Mobility Assessment Scooting Scooting to Edge of Bed Dependent PT-Transfer Assessment Sit to and From Stand Sit to and from Stand Moderate Assistance,1 Person Assistance,Use of Upper Extremities Equipment Transfer Assistive Device None,Gait Belt Orthotic/Prosthetic Devices or Brace: Yes Transfers Transfer Destination Chair,Toilet Transfer Technique ambulated Transfer Ability Level of Assist Moderate Assistance,1 Person Assistance Comments Mobility Comments Pt in bathroom upon arrival. Wanting to ambulate to transfer to chair. Pt required Mod A for sit<>stand w/ gaitbelt but no AD. Had slight LOB requiring Min A torecover . Ambulated ~12 ft to chair, Min A for slow descent. H&H low and pt fatigued, treatment cut short. Gait Assessment Gait Gait Assistance Required: Moderate Assistance,1 Person Assist Distance (Feet) 12 Able to Maintain Weight Bearing Status Yes During Gait Assistive Devices Assistive Device None,Gait Belt Orthotic/Prosthetic Devices or Brace: Yes Gait Deviations General Gait Pattern Ataxic,Decreased Stride Length ,Decreased Feet Clearance, Flexed Trunk,Step-to Gait,Wide Based Gait Factors Limiting Gait Function Factors Limiting Gait Function Decreased Activity Tolerance, Decreased Strength,Limited Range of Motion,Pain,Poor Balance,Poor Safety Awareness PT-Balance Assessment Sitting Balance and Reactions Static Sitting Balance Ability Good Dynamic Sitting Balance Ability Fair Standing Balance and Reactions Static Standing Balance Ability Poor Dynamic Standing Balance Ability Poor Device Used FWW M5 PT-IP Objective Assessments Start: 04/23/24 17:57 Freq: NEEDED Status: Active Protocol: Document 04/23/24 16:45 AB (Rec: 04/23/24 18:12 AB [id number]) Orientation Orientation/Cognition Level of Alertness Alert Orientation Name,Place,Situation Language Function Ability Hard of Hearing Safety Awareness Decreased Safety Awareness Memory Description No Deficits Noted Gross Range of Motion Lower Extremity ROM Assessment Within Functional Limits Strength Lower Extremity Strength Assessment Within Functional Limits Muscle Tone Muscle Tone WNL Yes M6 PT-IP Treatment Start: 04/23/24 17:57 Freq: NEEDED Status: Active Protocol: Document 04/24/24 11:08 KS (Rec: 04/24/24 12:37 KS [id number]) Physical Therapy Treatment Exercises Exercises Elbow Flexion/Extension,Wrist ROM,Hand ROM Education Education Provided Precautions,Weight Bearing Status,Post-Op Packet,Safety M7 PT-IP Assessment and Plan Start: 04/23/24 17:57 Freq: NEEDED Status: Active Protocol: Document 04/24/24 11:08 KS (Rec: 04/24/24 12:37 KS [id number]) PT Summary Assessment and Plan Potential Rehabilitation Potential Fair Summary Impairments Pain,ROM,Strength,Balance, Coordination,Sensation,Tone, Cognition,Bed Mobility, Transfers,Gait,Activity Tolerance Progress Towards Goals Slow Progress due to Medical Issues,Slow Progress due to Activity Tolerance Assessment Summary Pt limited to short distance and short treatment due to increased fatigue and low H&H. pt has bilateral shoulder precautions and is NWB on BUE. She was able to maintain standing balance w/ 1 slight LOB while INTEGRATED CIRCUIT FABRICATOR performed pericare. She ambualted ~12 ft from bathroom to chair and reported fatigue. Pt will require SNF to improve functional mobility. Goals Bed Mobility Goal Minimal Assistance Transfer Goal Minimal Assistance Gait Goal Minimal Assistance Gait Distance 50 Other Goals improve bed mobility, transfers and ambulation without AD SBA ~ 100 ft up/down 2 steps SBA Days to Meet Goals 10 Frequency of Treatment Other frequency 1-2x/day Treatment Plan Physical Therapy Treatment Plan Bed Mobility Training,Transfer Training,Gait Training, Therapeutic Exercise,Balance Retraining,Post Op Education, Discharge Planning,Hot or Cold Pack,Neuromuscular Re-ed, Coordination Retraining,Manual Therapy Precautions Shoulder Precautions Sling,PROM,Internal Rotation to Body,No External Rotation, No Abduction,Forward Flexion to 90 degrees,Pendulums Weight Bearing Status Weight Bearing Status Non-Weight Bearing Allowed Weight Bearing Amount (enter % BUE NWB or #) (%) Recommendations To Nursing Amount of Assist Needed 2 Person Assist Discharge Recommendations PT Discharge Recommendations SNF Rehab Transportation Needs at Discharge Wheelchair/Cabulance
--- NOTE | 2024-04-24 11:41 | P.PN_ITS ---
Subjective Subjective Date Patient Seen: 04/24/24 Time Patient Seen: 10:35 Interval history: 78-year-old woman under the primary care of Dr. Jesse Rossi underwent elective bilateral total shoulder arthroplasty today following bilateral proximal humeral fracture sustained in a recent fall in her garden at home on 04/01/2024, with uneventful surgical course. [facility] facility placement is anticipated. She has type 2 diabetes mellitus, history of supraventricular tachycardia, hypertension and COPD, all of which have been stable and controlled. She is on Xarelto for history of possible left leg DVT following her left knee replacement last year. She is seen postoperatively without complaints, denying chest pain, breathing problems or nausea. Interval history: Patient has no complaints today. She notes only mild shoulder pain. hematocrit returned at 22.4% this morning after 1 unit of packed red blood cells yesterday. Exam Vital Signs (past 8 hours): - 04/24/24 07:00 04/24/24 09:13 Temperature 97.9 F Pulse Rate 107 H 107 H Respiratory Rate 16 Blood Pressure 145/58 H 145/58 H Pulse Oximetry 97 Oxygen Flow Rate 0 Fraction of Inspired Oxygen 24 SaO2/FiO2 Ratio 400 Oxygen Delivery Method Room Air Oxygen Flow Rate 0 Narrative Exam Narrative: GENERAL: This is a well-nourished, well-developed patient, in no apparent distress. EYES: Pupils equal round and reactive. Extraocular motions intact. No scleral icterus. No injection or drainage. ENT: Mucous membranes pink and moist. NECK: Supple, nontender, no meningeal signs. CARDIOVASCULAR: Regular rate and rhythm without murmurs, gallops, or rubs. RESPIRATORY: Clear to auscultation. GASTROINTESTINAL: Abdomen soft, non-tender, nondistended. EXTREMITIES: No clubbing, cyanosis, or edema. MS: Bilateral shoulder dressings are clean, dry and intact. NEUROLOGIC: Alert, oriented, speech fluent, full upper and lower motor strength, no focal deficits evident. DERMATOLOGIC: No rashes or skin lesions. Objective Labs 04/24/24 05:37 04/23/24 06:50 Labs: Laboratory Results - last 24 hr 04/23/24 04/23/24 04/24/24 10:10 16:00 05:37 WBC 7.7 RBC 2.57 L Hgb 8.8 L 7.6 L Hct 26.2 L 22.4 L MCV 87.3 MCH 29.6 MCHC 33.9 RDW 17.0 H Plt Count 349 Neut % (Auto) 64.6 Lymph % (Auto) 19.2 L [place] % (Auto) 14.2 H Eos % (Auto) 1.4 L Baso % (Auto) 0.6 Neut # (Auto) 5000 Lymph # (Auto) 1500 [place] # (Auto) 1100 H Eos # (Auto) 100 Baso # (Auto) 0 Blood Type A Positive Antibody Screen Negative Crossmatch See Detail [facility] Medical History Scoliosis Gout Humerus fracture (04/01/24) Basal cell adenocarcinoma DVT (deep venous thrombosis) (~02/2023) SVT (supraventricular tachycardia) HLD (hyperlipidemia) COPD (chronic obstructive pulmonary disease) Osteoarthritis Chronic airway obstruction Rosacea Diabetes HTN (hypertension) Surgical History Hx of total knee arthroplasty (02/2023) H/O total hip arthroplasty H/O: hysterectomy History of gastric stapling Social History household members: none Smoking Status: Former smoker alcohol intake: current Assessment & Plan Assessment & Plan narrative: 1. Bilateral humeral fractures, status post bilateral reverse total shoulder arthroplasty the 04/22/2024. Management per Orthopedics and Physical therapy. 2. Postoperative anemia due to surgery. Transfuse 1 unit packed red blood cell. Likely accounts for mild tachycardia. 3. Diabetes mellitus, type 2. Appears adequately controlled with hemoglobin A1c 7.0% on admission. Blood sugars are in the 170s to 233 range overnight. Expect to improve in the next 24 hours without further intervention. Diabetic diet, sliding scale insulin coverage in usual medications. Continue to monitor. 3. Hypertension. Stable. Adequately controlled here Continue routine medication. 4. Hyperlipidemia. Continue routine statin medication. 5. History of left leg DVT following knee replacement last year. Continue routine Xarelto. 6. COPD. Stable. Continue routine inhalers. 7. DVT prophylaxis: Addressed on Xarelto. 8. Code status: Full code. The patient states she also has advanced directives. I wish to thank Dr. Monroy for this consultation. The hospitalist service will follow during this hospitalization. Anticipate discharge [facility] pending arrangements by social work. Quality VTE Deep Vein Thrombosis/Pulmonary Embolism Present on Admission: No [facility] Charge codes Subsequent inpatient/observation care: [id number]
[2024-04-24] MEDS: GLIMEPIRIDE 2 MG TABLET 4 MG PO (13:36)
--- NOTE | 2024-04-24 14:05 | CM.DPC ---
Patient HGB down to 7.6 from 8.8 p blood transfusion, spoke with Dr. Wynne and he is going to transfuse again and recheck in AM. If ok, will d/c to SNF. ROBSON Winters
[2024-04-24] MEDS: ACETAMINOPHEN 325 MG TABLET 650 MG PO (17:14)
[2024-04-24] MEDS: ATORVASTATIN 20 MG TABLET 40 MG PO (17:57)
[2024-04-24 18:59] LABS: Hematocrit 26.2 % (36-46)
[2024-04-24] MEDS: SENNOSIDES 8.6 MG TABLET 17.2 MG PO (20:43)
[2024-04-25] VITALS: BP 139/59; PULSE 108; TEMP 37.3; O2SAT 95
[2024-04-25 04:00] VITALS: BP 130/75; PULSE 106; RESP 20; TEMP 37.1; O2SAT 94
[2024-04-25 05:55] LABS: Hematocrit 26.2 % (36-46); Hemoglobin 9.1 g/dL (12.0-16.0)
--- NOTE | 2024-04-25 07:05 | P.DS_ITS ---
History of Present Illness History of Present Illness Date Patient Seen: 04/25/24 Time Patient Seen: 07:05 Chief complaint: INPT Narrative: Operative Date/Time/Diagnoses Date of procedure: 04/22/24 Time of procedure: 13:38 Pre-op diagnosis: 1. Right proximal humerus fracture 2. Left proximal humerus fracture Post-op diagnosis: same Procedure & Clinicians Procedure: 1. Right reverse total shoulder arthroplasty for fracture 2. Left reverse total shoulder arthroplasty for fracture Same procedure as scheduled: Yes Indications: Indications: This is a 78-year-old female who has complex bilateral proximal humerus fractures. We discussed that in order to allow her to gain use of her shoulders prevent malunion and nonunion and avascular necrosis we would attempt to fix her left shoulder if not we would do a reverse, for her right shoulder due to the head splitting nature we were going to go straight to a reverse total shoulder arthroplasty. Risks and benefits were described including the risk of infection, bleeding, damage to internal structures including nerves. We also discussed the risk of failure of surgery and the need for revision surgery as well as the risk of anesthesia. The patient expressed understanding with these risks and wished to go forward with surgery. Surgeon: Valentín Monroy Battery Wrecker Operator: Osiel Willingham Anesthesia Type: General Operative Notes Findings: Findings: Bilateral complex proximal humerus fracture with head splits Closure Type: primary Specimen(s): none sent Prosthetic devices, grafts, tissues, transplants, or devices: Tornier implants Right Base plate: standard 25 mm, +3 mm offset Glenosphere: Standard 36 mm Stem: Perform fracture stem size 14 Poly: +3 retentive Left Base plate: standard 25 mm, +3 mm offset Glenosphere: Standard 36 mm Stem: Perform fracture stem size 13 Poly: +3 retentive Estimated Blood Loss (mL): 400 Blood products transfused: none Discharge Providers Provider Date of admission: 04/22/24 08:05 Discharge Date: 04/25/24 Primary care physician: Jesse Rossi MD Consults: 04/22/24 14:25 Consult to Discharge Planning Routine Comment: Consult to Occupational Therapy Evaluate & Treat Comment: Physician Instructions: Evaluate and treat Consult to Physical Therapy Evaluate & Treat Comment: Physician Instructions: Evaluate and Treat 04/22/24 14:28 Consult to Hospitalist Service Routine Comment: Consulting Provider: Doyle Walsh V Reason for consultation: medical complexity Has provider been notified: Yes Discharge provider: Brittney Andre PA-C Summary Hospital Course Discharge Diagnosis: Bilateral complex proximal humerus fracture with head splits, s/p bilateral reverse total shoulder arthroplasty Hospital Course: Ms Carias's hospital course was significant for symptomatic postop anemia and slow progress w/ PT/OT d/t extensive nature of surgery. She required a transfusion of 1 unit of PRBCs on POD# 2. On the morning of POD# 3, she was eating and voiding without difficulty and her pain was well-controlled with oral medication. Her H/H had responded appropriately to transfusion, and her vital signs were stable. Per notes, plan is to d/c to SNF, though currently unclear where she has been accepted. Exam Vital Signs (past 8 hours): - 04/25/24 00:00 04/25/24 04:00 Temperature 99.1 F 98.7 F Pulse Rate 108 H 106 H Respiratory Rate 20 Blood Pressure 139/59 L 130/75 Pulse Oximetry 95 94 Oxygen Flow Rate 0 0 Fraction of Inspired Oxygen 24 SaO2/FiO2 Ratio 400 Oxygen Delivery Method Room Air Oxygen Flow Rate 0 Narrative Exam Narrative: 5/5 outbound sales specialist strength, full ROM of wrist, sensation to light touch intact throughout BUE. Aquacel dressings CDI, slings well-placed. Objective Labs 04/25/24 05:46 04/23/24 06:50 Labs: Laboratory Results - last 24 hr 04/23/24 04/24/24 04/25/24 10:10 18:53 05:46 Hgb 9.0 L 9.1 L Hct 26.2 L 26.2 L Blood Type A Positive Antibody Screen Negative Crossmatch See Detail [facility] Medical History Scoliosis Gout Humerus fracture (04/01/24) Basal cell adenocarcinoma DVT (deep venous thrombosis) (~02/2023) SVT (supraventricular tachycardia) HLD (hyperlipidemia) COPD (chronic obstructive pulmonary disease) Osteoarthritis Chronic airway obstruction Rosacea Diabetes HTN (hypertension) Surgical History Hx of total knee arthroplasty (02/2023) H/O total hip arthroplasty H/O: hysterectomy History of gastric stapling Social History household members: none Smoking Status: Former smoker alcohol intake: current Discharge Assessment & Plan Assessment and Plan Assessment: Bilateral complex proximal humerus fracture with head splits, s/p bilateral reverse total shoulder arthroplasty Plan of Treatment: D/c to SNF, multimodal pain control, slings at all times. F/u in office as scheduled. Discharge Plan Discharge Plan Patient Disposition: SNF Discharge orders & Medications Prescriptions: New acetaminophen 325 mg Tablet 650 mg PO Q6H PRN (Reason: Fever/Mild Pain (1-3)) Qty: 240 0RF bisacodyl 10 mg Suppository 10 mg NH PRN PRN (Reason: Constipation) Qty: 30 0RF docusate sodium 100 mg Capsule 100 mg PO BID PRN (Reason: constipation) Qty: 60 1RF ondansetron 4 mg Tablet,Disintegrating 4 mg PO Q4HR PRN (Reason: Nausea And Vomiting) Qty: 30 0RF oxycodone 5 mg Tablet 5 mg PO Q4-6H PRN (Reason: Pain, Moderate (4-6)) Qty: 30 0RF Continued cholecalciferol (vitamin D3) 5,000 UNIT capsule 125 mcg PO DAILY Qty: 0 omega 0-zda-evm-fish oil [Fish Oil] 1,000 MG capsule 1 cap PO DAILY Qty: 0 atorvastatin 40 mg Tablet 40 mg PO QPM metformin 1,000 mg Tablet 1,000 mg PO BID glimepiride 4 mg Tablet 4 mg PO DAILY losartan 25 mg Tablet 25 mg PO DAILY albuterol sulfate 90 mcg/actuation Hfa Aerosol Inhaler 2 puff INHALATION 6XD PRN (Reason: SOB) hydrochlorothiazide 12.5 mg Tablet 12.5 mg PO QAM Xarelto 10 mg Tablet 10 mg PO DAILY Rx Instructions: for 35 days Follow up/Referrals: Jesse Rossi MD [Primary Care Provider] - Valentín Monroy MD [Physician] - As previously scheduled Diet/Activity/Treatments Diet: Diet as Tolerated Activity: Remain in slings with no external rotation past neutral for 6 weeks. Cold/Heat Therapy: Ice the shoulders for additional pain control Skin/Wound/Dressing Care Report to your healthcare provider any signs of infection, such as:: chills, fever, night sweats, unusual drainage and unusual redness Dressing: Keep dressings intact, clean and dry until 2 week post-op appointment. No soaking the incision sites in pools or tubs. No topical ointments or creams to the incision site. Special Rehabilitation Services Reason for rehabilitation: Post-operative therapy Rehab type: Physical therapy and Occupational therapy Visit Report/Discharge Packet Instructions: DI for Prescription Opioid Use, DI for Shoulder Replacement Stand Alone Forms: Patient Portal/API, Surgery Discharge Discharge Data Primary Care Provider: Jesse Rossi VTE Deep Vein Thrombosis/Pulmonary Embolism Present on Admission: No
[2024-04-25 08:00] VITALS: BP 150/81; PULSE 107; RESP 24; TEMP 36.8; O2SAT 94
[2024-04-25 08:12] VITALS: BP 150/81; PULSE 107
[2024-04-25] MEDS: FISH OIL 1,000 MG CAPSULE 1000 MG PO (08:12)
[2024-04-25] MEDS: LOSARTAN 25 MG TABLET PO (08:12)
[2024-04-25] MEDS: hydroCHLOROthiazide 25 MG TABLET 12.5 MG PO (08:12)
[2024-04-25] MEDS: RIVAROXABAN 10 MG TABLET PO (08:12)
[2024-04-25] MEDS: INSULIN LISPRO 100 UNIT/ML 3ML VIAL SUBCUT ×2 (08:13→11:48)
[2024-04-25] MEDS: polyethylene glycoL 3350 17 GM POWD.PACK PO (08:13)
[2024-04-25] MEDS: CHOLECALCIFEROL (VITAMIN D3) 5,000 UNIT TABLET 5000 UNIT PO (08:13)
[2024-04-25] MEDS: DOCUSATE 100 MG CAPSULE PO (08:13)
[2024-04-25] MEDS: METFORMIN HCL 500 MG TABLET 1000 MG PO (08:13)
[2024-04-25] MEDS: SODIUM CHLORIDE 0.9% FLUSH 10 ML IV (08:14)
--- NOTE | 2024-04-25 10:27 | PM.PN.1 ---
Subjective Subjective Interval history: 1-year-old woman under the primary care of Dr. Jesse Rossi underwent elective bilateral total shoulder arthroplasty today following bilateral proximal humeral fracture sustained in a recent fall in her garden at home on 04/01/2024, with uneventful surgical course. [facility] facility placement is anticipated. She has type 2 diabetes mellitus, history of supraventricular tachycardia, hypertension and COPD, all of which have been stable and controlled. She is on Xarelto for history of possible left leg DVT following her left knee replacement last year. She is seen postoperatively without complaints, denying chest pain, breathing problems or nausea. Interval history: Patient has no complaints today. She notes only mild shoulder pain. hematocrit returned at 22.4% this morning after 1 unit of packed red blood cells. S: She was doing fairly well today. Her pain is controlled and her breathing is at her baseline. She was no other concerns. Exam Vital Signs (past 8 hours): - 04/25/24 04:00 04/25/24 08:00 04/25/24 08:12 Temperature 98.7 F 98.3 F Pulse Rate 106 H 107 H 107 H Respiratory Rate 20 24 Blood Pressure 130/75 150/81 H 150/81 H Pulse Oximetry 94 94 Oxygen Flow Rate 0 0 Fraction of Inspired Oxygen 24 SaO2/FiO2 Ratio 400 Oxygen Delivery Method Room Air Oxygen Flow Rate 0 Narrative Exam Narrative: NAD, alert and oriented. Fluent speech. Both arms are slings. Lungs are clear, normal rate and effort. Globally diminished breath sounds. No wheezing. Heart is regular, no murmur gallop or rub. Abdomen is soft, non distended. Extremities are free of edema. Objective Labs 04/25/24 05:46 04/23/24 06:50 Labs: Laboratory Results - last 24 hr 04/23/24 04/24/24 04/25/24 10:10 18:53 05:46 Hgb 9.0 L 9.1 L Hct 26.2 L 26.2 L Blood Type A Positive Antibody Screen Negative Crossmatch See Detail [facility] Medical History Scoliosis Gout Humerus fracture (04/01/24) Basal cell adenocarcinoma DVT (deep venous thrombosis) (~02/2023) SVT (supraventricular tachycardia) HLD (hyperlipidemia) COPD (chronic obstructive pulmonary disease) Osteoarthritis Chronic airway obstruction Rosacea Diabetes HTN (hypertension) Surgical History Hx of total knee arthroplasty (02/2023) H/O total hip arthroplasty H/O: hysterectomy History of gastric stapling Social History household members: none Smoking Status: Former smoker alcohol intake: current Assessment & Plan Assessment & Plan narrative: 1. Bilateral humeral fractures, status post bilateral reverse total shoulder arthroplasty the 04/22/2024. Management per Orthopedics and Physical therapy. 2. Postoperative anemia due to surgery. Transfuse 1 unit packed red blood cell. Likely accounts for mild tachycardia. 3. Diabetes mellitus, type 2. Appears adequately controlled with hemoglobin A1c 7.0% on admission. Blood sugars are in the 170s to 233 range overnight. Expect to improve in the next 24 hours without further intervention. Diabetic diet, sliding scale insulin coverage in usual medications. Continue to monitor. 3. Hypertension. Stable. Adequately controlled here Continue routine medication. 4. Hyperlipidemia. Continue routine statin medication. 5. History of left leg DVT following knee replacement last year. Continue routine Xarelto. 6. COPD. Stable. Continue routine inhalers. 7. DVT prophylaxis: Addressed on Xarelto. 8. Code status: Full code. The patient states she also has advanced directives. PLAN: Stable for discharge to senior living facility. She will need a repeat hematocrit and hemoglobin in the next 5 days to monitor stability. Time-Based Coding :: [TOTAL MINUTES] spent with patient and on the chart (including review of chart, obtaining history, exam, reviewing outside data, placing orders, documenting exam and treatment plan, and counseling patient) on [DATE]. Quality VTE Deep Vein Thrombosis/Pulmonary Embolism Present on Admission: No
--- NOTE | 2024-04-25 10:56 | CM.DPC ---
DCP SNF Discharge Per Ortho PA, pt medically stable to discharge to SNF today and no identified barriers to discharge and orders placed and packet completed. MONROE confirmed that [facility] does not currently have a bed available today for a female but maybe on Thu this week. MONROE spoke to admissions at [facility] and confirmed they reviewed and can accept the pt today with transport around 1200. MONROE met bedside with pt and adult Dtr and updated on above and pt was hopeful for [facility] and inquired if she could remain in the hospital until bed is available and explained that once pt medically stable to discharge the hospital to lower level of care then insurance will not continue to cover hospital ongoing. Pt and Dtr acknowledged understanding and both agreeable to [facility] and Dtr will go to SNF after pt is discharged to help get her settled in. PASRR, signed med list, script, d/c summary and orders secure emailed to [facility] admissions for review and they confirm they received. Updated dope pourer, BAIT DIGGER, and RN and provided number to call report. Copy of IMM provided. Plan: Patient to d/c to [facility] today via facility van at 1200 before safe return home with family support. ROBSON Ulloa
[2024-04-25] MEDS: IBUPROFEN 400 MG TABLET PO (11:47)
[2024-04-25] MEDS: GLIMEPIRIDE 2 MG TABLET 4 MG PO (11:48)
[2024-04-25] MEDS: ACETAMINOPHEN 325 MG TABLET 650 MG PO (11:48)
--- NOTE | 2024-04-25 13:04 | PC.NURSE ---
Addendum entered by Haylie Ernst R.N. 04/25/24 15:30: Hard scripts were included in the packet which was given to SNF personnel. This RN attempted to call the SNF RN to give report, but was unable to reach anyone. This RN wrote phone number on packet that was given to personnel in the event that the SNF RN needed to contact this facility. Original Note: Patient dressed with assistance. IV removed. Pt confirmed she had all of her belongings. D/c packet handed to SNF personnel. Pt exited via w/c with SNF personnel.
== END 2024-04-25 12:10 | DRG 483 ==
PROVIDERS: Internal Medicine; Orthopaedic Surgery Orthopaedic Surgery of the Spine; Admitting Provider Orthopaedic Surgery; PCP Internal Medicine; Referring Provider Orthopaedic Surgery; Visit Provider Orthopaedic Surgery
PROC: 0RRK00Z Replacement of Left Shoulder Joint with Reverse Ball and Socket Synthetic Substitute, Open Approach (ICD-10-PCS; CPT 23472; principal; 2024-04-22 09:45)
PROC: 0RRK00Z Replacement of Left Shoulder Joint with Reverse Ball and Socket Synthetic Substitute, Open Approach (ICD-10-PCS; 2024-04-22 09:45)
DX: S42.292A Other displaced fracture of upper end of left humerus, initial encounter for closed fracture (principal); S42.291A Other displaced fracture of upper end of right humerus, initial encounter for closed fracture; D62 Acute posthemorrhagic anemia; E11.9 Type 2 diabetes mellitus without complications; I10 Essential (primary) hypertension; E78.5 Hyperlipidemia, unspecified; J44.9 Chronic obstructive pulmonary disease, unspecified; W01.0XXA Fall on same level from slipping, tripping and stumbling without subsequent striking against object, initial encounter; Z79.84 Long term (current) use of oral hypoglycemic drugs; Z86.718 Personal history of other venous thrombosis and embolism; Z79.01 Long term (current) use of anticoagulants; Z87.891 Personal history of nicotine dependence
CPT/HCPCS: 36415; 36430; 64450; 73020; 80048; 80053; 82962; 83036; 85014; 85018; 85025; 86850; 86900; 86901; 93005; 94762; 97162; 97530; C1776; P9016; A9270; J0171; J0690; J1171; J1815; J1885; J2405; J2704; J3010

== ENCOUNTER 2024-06-28 17:04 | Inpatient (IN) | payer MEDICARE, OTHER, SELFPAY ==
[2024-04-22 15:29] VITALS: BMI 33.0
[2024-06-28] VITALS (8 sets, daily range): BP systolic 136–166; BP diastolic 64–75; PULSE 95–101; RESP 18–25; TEMP 36.6–37; O2SAT 90–97; BMI 30.2
[2024-06-28 17:50] LABS: Add Manual Diff / Slide Review NO; Basophils Absolute Auto 100 /uL (0-100); Basophils Percent Auto 1.3 % (0-2); Eosinophils Absolute Auto 200 /uL (0-450); Eosinophils Percent Auto 1.7 % (2-4); Hematocrit 39.6 % (36-46); Hemoglobin 13.1 g/dL (12.0-16.0); Lymphocytes Absolute Auto 5100 /uL (1100-4500); Lymphocytes Percent Auto 46.6 % (25-40); Mean Corpuscular Hemoglobin 28.9 PG (26-34); Mean Corpuscular Volume 87.4 fL (80-100); Monocytes Absolute Auto 700 /uL (0-900); Monocytes Percent Auto 6.8 % (3-14); Neutrophils Absolute Auto 4800 /uL (1500-7000); Neutrophils Percent Auto 43.6 % (50-75); Platelet Count 381 X10^3/uL (150-400); Red Blood Cell Count 4.52 X10^6/uL (4.0-5.2); Red Cell Distribution Width 16.3 % (11.6-14.8)
[2024-06-28 17:58] LABS: Alanine Aminotransferase 20 IU/L (<35); Albumin 4.1 g/dL (3.5-5.0); Albumin Globulin Ratio 1.5 (1.0-2.8); Alkaline Phosphatase 136 U/L (38-126); Aspartate Aminotransferase 25 IU/L (14-36); Bilirubin Total 0.7 mg/dL (0.2-1.3); Blood Urea Nitrogen 23 mg/dL (7-17); Carbon Dioxide 31 mmol/L (22-32); Chloride 98 mmol/L (98-107); Estimated Glomerular Filt Rate 31 mL/min (>60); Globulin 2.8 g/dL (1.7-4.1); Glucose 98 mg/dL (80-110); HEMOLYSIS 38 (0-50); Potassium 4.1 mmol/L (3.4-5.1); Sodium 133 mmol/L (137-145); Total Protein 6.9 g/dL (6.3-8.2)
[2024-06-28 18:00] LABS: Calcium 13.5 mg/dL (8.4-10.2)
--- NOTE | 2024-06-28 18:03 | ED.RECABL ---
HPI - Recheck/Abnormal Lab/Rx General Chief Complaint: Recheck/Abnormal Lab/Rx Stated Complaint: hypercalcemia Time Seen by Provider: 06/28/24 18:00 Source: patient Mode of arrival: Ambulatory History of Present Illness HPI narrative: 79-year-old female with history of COPD, type 2 diabetes, SVT, hypertension, history of bilateral shoulder replacement presents by EMS from her assisted living facility for abnormal labs. Patient states that for the last 3 weeks she has felt progressively weaker. Outside labs showed a calcium of 14. Daughter did not want patient to go to [facility] and requested transport to [facility] since this is where the patient had her shoulder surgery performed Related Data Home Medications Medication Instructions Recorded Confirmed cholecalciferol (vitamin D3) 125 125 mcg PO DAILY ##0 03/12/17 04/22/24 mcg (5,000 unit) capsule omega 6-uen-gor-fish oil 1,000 mg 1 cap PO DAILY ##0 03/12/17 04/21/24 (120 mg-180 mg) capsule (Fish Oil) albuterol sulfate 90 mcg/actuation 2 puff inhalation 6XD PRN SOB 04/21/24 04/22/24 aerosol inhaler atorvastatin 40 mg tablet 40 mg PO QPM 04/21/24 04/22/24 glimepiride 4 mg tablet 4 mg PO DAILY 04/21/24 04/22/24 hydrochlorothiazide 12.5 mg tablet 12.5 mg PO QAM 04/21/24 04/22/24 losartan 25 mg tablet 25 mg PO DAILY 04/21/24 04/22/24 metformin 1,000 mg tablet 1,000 mg PO BID 04/21/24 04/22/24 rivaroxaban 10 mg tablet (Xarelto) 10 mg PO DAILY 04/21/24 04/21/24 Previous Rx's Medication Instructions Recorded acetaminophen 325 mg tablet 650 mg (2 x 325 mg) PO Q6H PRN 04/25/24 Fever/Mild Pain (1-3) #240 tabs bisacodyl 10 mg rectal suppository 10 mg OK PRN PRN Constipation #30 04/25/24 ea docusate sodium 100 mg capsule 100 mg PO BID PRN constipation #60 04/25/24 caps ondansetron 4 mg disintegrating 4 mg PO Q4HR PRN Nausea And 04/25/24 tablet Vomiting #30 tabs oxycodone 5 mg tablet 5 mg PO Q4-6H PRN Pain, Moderate 04/25/24 (4-6) #30 tabs Allergies Allergy/AdvReac Type Severity Reaction Status Date / Time latex Allergy Mild ITCHING Verified 04/22/24 09:00 AND REDNESS oxycodone AdvReac Intermediate Nausea Verified 04/22/24 09:00 Patient History Medical History Scoliosis Gout Humerus fracture (04/01/24) Basal cell adenocarcinoma DVT (deep venous thrombosis) (~02/2023) SVT (supraventricular tachycardia) HLD (hyperlipidemia) COPD (chronic obstructive pulmonary disease) Osteoarthritis Chronic airway obstruction Rosacea Diabetes HTN (hypertension) Surgical History Hx of total knee arthroplasty (02/2023) H/O total hip arthroplasty H/O: hysterectomy History of gastric stapling Social History household members: none Smoking Status: Former smoker alcohol intake: current Smoking Status: Former smoker alcohol intake frequency: a few times a month Exam Initial Vital Signs Initial Vital Signs: Vital Signs Temperature 98.6 F 06/28/24 17:12 Pulse Rate 100 H 06/28/24 17:12 Respiratory Rate 18 06/28/24 17:12 Blood Pressure 166/74 H 06/28/24 17:12 Pulse Oximetry 97 06/28/24 17:12 Oxygen Delivery Method Room Air 06/28/24 17:12 Const: Awake, alert, frail, nontoxic appearing Cardiac: regular rate, regular rhythm RESP: unlabored, clear bilaterally, no wheezing GI: Soft, nontender, nondistended Skin: Warm, Dry, intact, no rashes Neuro: AO x3, CN II-XII grossly intact, moves all extremities Course Orders Ordered: ED Orders 06/28/24 17:40 Complete Blood Count AUTO DIFF Stat Comprehensive Metabolic Panel Stat MAG [Magnesium] Stat PHOS [Phosphorous] Stat 06/28/24 19:10 EKG-12 Lead Stat 06/28/24 19:36 UA Complete [Urinalysis and Microscopic] Stat Magnesium Sulfate (Magnesium Sulfate) 2 gm in 50 mls @ 25 mls/hr IV NOW ONE Stop: 06/28/24 21:39 Last Admin: 06/28/24 19:48 Dose: 25 mls/hr Documented By: Co-signed By: SH Discontinued Medications Calcitonin [place] (Calcitonin,[place] 400 Units/2 Ml Mdv) 250 units IM NOW ONE Stop: 06/28/24 20:13 Last Admin: 06/28/24 20:31 Dose: 250 units Documented By: Sodium Chloride (Normal Saline 0.9%) 1,000 mls @ 1,000 mls/hr IV BOLUS ONE Stop: 06/28/24 19:02 Last Infusion: 06/28/24 19:24 Dose: Infused Documented By: Admin: 06/28/24 18:11 Dose: 1,000 mls/hr Documented By: FRANK Ondansetron HCl (Ondansetron 4 Mg/2 Ml Inj) 4 mg IV NOW ONE Stop: 06/28/24 21:06 Last Admin: 06/28/24 21:09 Dose: 4 mg Documented By: Vital Signs Vital signs: Vital Signs - 8 hr 06/28/24 17:12 06/28/24 18:17 06/28/24 18:30 Temperature 98.6 F Pulse Rate 100 H 99 H 99 H Respiratory Rate 18 24 Blood Pressure 166/74 H Pulse Oximetry 97 92 94 Oxygen Delivery Method Room Air 06/28/24 19:58 06/28/24 20:00 06/28/24 20:00 Temperature Pulse Rate 101 H 97 H Respiratory Rate 23 23 Blood Pressure 159/67 H Pulse Oximetry 95 95 Oxygen Delivery Method 06/28/24 20:30 06/28/24 20:47 06/28/24 20:47 Temperature Pulse Rate 96 H 95 H Respiratory Rate 20 25 H Blood Pressure 139/64 Pulse Oximetry 93 94 Oxygen Delivery Method Room Air Room Air MDM - Recheck/Abnormal Lab/Rx Differential Diagnosis Differential diagnosis: Likely other (Hypercalcemia, hypomagnesemia, hypophosphatemia) Lab Data 06/28/24 17:40 06/28/24 17:40 Labs: Lab Results 06/28/24 06/28/24 Range/Units 17:40 19:36 WBC 11.0 (4.5-11.0) X10^3/uL RBC 4.52 (4.0-5.2) X10^6/uL Hgb 13.1 (12.0-16.0) g/dL Hct 39.6 (36-46) % MCV 87.4 (80-100) fL MCH 28.9 (26-34) PG MCHC 33.0 (30-36) % RDW 16.3 H (11.6-14.8) % Plt Count 381 (150-400) X10^3/uL Neut % (Auto) 43.6 L (50-75) % Lymph % (Auto) 46.6 H (25-40) % [place] % (Auto) 6.8 (3-14) % Eos % (Auto) 1.7 L (2-4) % Baso % (Auto) 1.3 (0-2) % Neut # (Auto) 4800 (6737-8450) /uL Lymph # (Auto) 5100 H (5583-8098) /uL [place] # (Auto) 700 (0-900) /uL Eos # (Auto) 200 (0-450) /uL Baso # (Auto) 100 (0-100) /uL Sodium 133 L (137-145) mmol/L Potassium 4.1 (3.4-5.1) mmol/L Chloride 98 (98-107) mmol/L Carbon Dioxide 31 (22-32) mmol/L BUN 23 H (7-17) mg/dL Creatinine 1.64 H (0.52-1.04) mg/dL Estimated GFR 31 L (>60) mL/min BUN/Creatinine Ratio 14.0 (6-22) Glucose 98 (80-110) mg/dL Calcium 13.5 H* (8.4-10.2) mg/dL Phosphorus 1.1 L* (2.8-4.1) mg/dL Magnesium 1.2 L (1.6-2.3) mg/dL Total Bilirubin 0.7 (0.2-1.3) mg/dL AST 25 (14-36) IU/L ALT 20 (<35) IU/L Alkaline Phosphatase 136 H (38-126) U/L Total Protein 6.9 (6.3-8.2) g/dL Albumin 4.1 (3.5-5.0) g/dL Globulin 2.8 (1.7-4.1) g/dL Albumin/Globulin Ratio 1.5 (1.0-2.8) Urine Color Yellow Urine Appearance Clear Urine pH 7.0 (4.5-8.0) Ur Specific [place] <=1.005 (1.000-1.035) Urine Protein Negative (Negative) Urine Glucose (UA) Negative (Negative) g/dL Urine Ketones Negative (NEGATIVE) Urine Occult Blood Negative (Negative) Urine Nitrate Negative (Negative) Urine Bilirubin Negative (NEGATIVE) Urine Urobilinogen 0.2 (0.2) E.U./dL Ur Leukocyte Esterase Trace H (NEGATIVE) Urine RBC 0-1/hpf (0-5/HPF) Urine WBC 0-1/hpf (0-5/HPF) Ur Squamous Epith Cells 0-1 /hpf (0-5/HPF) Urine Bacteria Few (2-10) H (None) Ur Culture Indicated? Cult not indicated Vol Urine Centrifuged 10ml (spun) MDM Narrative Medical decision making narrative: 3 weeks of generalized weakness. Found to have hypercalcemia at nursing facility. Medication list from [facility] has calcium carbonate listed on her medical record, however per daughter patient has not taken this medication in many months. No obvious cause of hypercalcemia at this time. IV fluids, calcitonin ordered. Patient also found to have hypomagnesemia and hypophosphatemia. IV magnesium ordered. Patient to be admitted for further treatment of her lab abnormalities. Discharge Plan Departure Patient Disposition: Admitted as Observation Clinical Impression: Hypercalcemia, Hypomagnesemia, Hypophosphatasia Admit Date/Time: 06/28/24 20:47 Admit Provider: Jarrett Estrella
[2024-06-28] MEDS: SODIUM CHLORIDE 0.9% 1,000 ML 1000 ML IV (18:11)
[2024-06-28 19:23] LABS: Magnesium 1.2 mg/dL (1.6-2.3)
[2024-06-28 19:24] LABS: Phosphorous 1.1 mg/dL (2.8-4.1)
[2024-06-28] MEDS: MAGNESIUM SULFATE 2 GM/50 ML PIGGYBACK IV (19:48)
[2024-06-28 19:59] LABS: Appearance Urine UA CLEAR; Bilirubin Urine UA NEGATIVE (NEGATIVE); Color Urine UA YELLOW; Glucose Urine UA NEGATIVE (Negative); Ketones Urine UA NEGATIVE (NEGATIVE); Leukocyte Esterase Urine UA TRACE (NEGATIVE); Nitrite Urine UA NEGATIVE (Negative); Occult Blood Urine UA NEGATIVE (Negative); Protein Urine UA NEGATIVE (Negative); Specific Gravity Urine UA <=1.005 (1.000-1.035); Urobilinogen Urine UA 0.2 E.U./dL (0.2)
[2024-06-28 20:06] LABS: Bacteria Urine Few (2-10); Culture Indicated Urine Cult Not Indicated; RBC Urine 0-1/HPF (0-5/HPF); Squamous Epithelial Cell Urine 0-1 /HPF (0-5/HPF); Urine Volume 10mL (spun); WBC Urine 0-1/HPF (0-5/HPF)
[2024-06-28] MEDS: CALCITONIN,SALMON 400 UNITS/2 ML MDV 250 UNITS IM (20:31)
[2024-06-28] MEDS: ONDANSETRON 4 MG/2 ML INJ IV (21:09)
--- NOTE | 2024-06-28 22:09 | PM.HP.1 ---
History of Present Illness History of Present Illness Date Patient Seen: 06/28/24 Chief complaint: hypercalcemia Narrative: 79 y/o long-term resident of a facility, with PMH of chronic LLE DVT, COPD. scoliosis, gout, HTN, DM, OA, presented to ED for progressive, non-resolving generalized weakness. Labs done in facility revealed hypercalcemia. Referred to ED wher she had initial treatment with calcitonin and IVFs. Patient unable to report a lot on admission due to either mild cognitive deficits, acute encephalopathy or both. [facility] Medical History (Updated 06/29/24 @ 06:40 by Jarrett Brown MD) Scoliosis Gout Humerus fracture (04/01/24) Basal cell adenocarcinoma DVT (deep venous thrombosis) (~02/2023) SVT (supraventricular tachycardia) HLD (hyperlipidemia) COPD (chronic obstructive pulmonary disease) Osteoarthritis Chronic airway obstruction Rosacea Diabetes HTN (hypertension) Surgical History Hx of total knee arthroplasty (02/2023) H/O total hip arthroplasty H/O: hysterectomy History of gastric stapling Social History household members: none Smoking Status: Former smoker alcohol intake: current Meds Home Medications and Allergies Home Medications Medication Instructions Recorded Confirmed Type cholecalciferol (vitamin D3) 125 125 mcg PO DAILY ##0 03/12/17 06/28/24 History mcg (5,000 unit) capsule omega [id number]-bgd-hkm-fish oil 1,000 mg 1 cap PO DAILY ##0 03/12/17 06/28/24 History (120 mg-180 mg) capsule (Fish Oil) albuterol sulfate 90 mcg/actuation 2 puff inhalation 6XD PRN SOB 04/21/24 06/28/24 History aerosol inhaler atorvastatin 40 mg tablet 40 mg PO QPM 04/21/24 06/28/24 History glimepiride 4 mg tablet 4 mg PO DAILY 04/21/24 06/28/24 History hydrochlorothiazide 12.5 mg tablet 12.5 mg PO QAM 04/21/24 06/28/24 History losartan 25 mg tablet 25 mg PO DAILY 04/21/24 06/28/24 History metformin 1,000 mg tablet 1,000 mg PO BID 04/21/24 06/28/24 History rivaroxaban 10 mg tablet (Xarelto) 10 mg PO DAILY 04/21/24 04/21/24 History acetaminophen 325 mg tablet 650 mg (2 x 325 mg) PO Q6H PRN 04/25/24 06/28/24 Rx Fever/Mild Pain (1-3) #240 tabs bisacodyl 10 mg rectal suppository 10 mg NH PRN PRN Constipation #30 04/25/24 06/28/24 Rx ea docusate sodium 100 mg capsule 100 mg PO BID PRN constipation #60 04/25/24 06/28/24 Rx caps ondansetron 4 mg disintegrating 4 mg PO Q4HR PRN Nausea And 04/25/24 06/28/24 Rx tablet Vomiting #30 tabs oxycodone 5 mg tablet 5 mg PO Q4-6H PRN Pain, Moderate 04/25/24 Rx (4-6) #30 tabs Adult One Daily Multivitamin PO DAILY 06/28/24 History calcium-magnesium 750 mg-465 mg tab PO DAILY 06/28/24 History tablet hydrocodone 5 mg-acetaminophen 325 1 tab PO Q4H PRN Pain (Scale Score 06/28/24 06/28/24 History mg tablet 1-3) ibuprofen 800 mg tablet 800 mg PO 2XD PRN Pain (Scale 06/28/24 06/28/24 History Score 1-3) sennosides 8.6 mg tablet (senna) 17.2 mg PO BEDTIME PRN Constipation 06/28/24 06/28/24 History Allergies Allergy/AdvReac Type Severity Reaction Status Date / Time latex Allergy Mild ITCHING Verified 04/22/24 09:00 AND REDNESS oxycodone AdvReac Intermediate Nausea Verified 04/22/24 09:00 Review of Systems Review of Systems Narrative: Poor historian Feels weak. Denies pain. Exam Vital Signs (past 8 hours): - 06/28/24 17:12 06/28/24 18:17 06/28/24 18:30 Temperature 98.6 F Pulse Rate 100 H 99 H 99 H Respiratory Rate 18 24 Blood Pressure 166/74 H Pulse Oximetry 97 92 94 Oxygen Delivery Method Room Air 06/28/24 19:58 06/28/24 20:00 06/28/24 20:00 Temperature Pulse Rate 101 H 97 H Respiratory Rate 23 23 Blood Pressure 159/67 H Pulse Oximetry 95 95 Oxygen Delivery Method 06/28/24 20:30 06/28/24 20:47 06/28/24 20:47 Temperature Pulse Rate 96 H 95 H Respiratory Rate 20 25 H Blood Pressure 139/64 Pulse Oximetry 93 94 Oxygen Delivery Method Room Air Room Air Oxygen Delivery Method Room Air Const Other: in no distress HENMT Other: normocephalic Neck Other: supple Cardio Other: RRR GI Other: not distended Skin Other: w/o rashes Extrem Other: swollen Psych Other: cognitive deficits Objective Labs 06/28/24 17:40 06/28/24 17:40 Labs: Laboratory Results - last 24 hr 06/28/24 06/28/24 17:40 19:36 WBC 11.0 RBC 4.52 Hgb 13.1 Hct 39.6 MCV 87.4 MCH 28.9 MCHC 33.0 RDW 16.3 H Plt Count 381 Neut % (Auto) 43.6 L Lymph % (Auto) 46.6 H [place] % (Auto) 6.8 Eos % (Auto) 1.7 L Baso % (Auto) 1.3 Neut # (Auto) 4800 Lymph # (Auto) 5100 H [place] # (Auto) 700 Eos # (Auto) 200 Baso # (Auto) 100 Sodium 133 L Potassium 4.1 Chloride 98 Carbon Dioxide 31 BUN 23 H Creatinine 1.64 H Estimated GFR 31 L BUN/Creatinine Ratio 14.0 Glucose 98 Calcium 13.5 H* Phosphorus 1.1 L* Magnesium 1.2 L Total Bilirubin 0.7 AST 25 ALT 20 Alkaline Phosphatase 136 H Total Protein 6.9 Albumin 4.1 Globulin 2.8 Albumin/Globulin Ratio 1.5 Urine Color Yellow Urine Appearance Clear Urine pH 7.0 Ur Specific [place] <=1.005 Urine Protein Negative Urine Glucose (UA) Negative Urine Ketones Negative Urine Occult Blood Negative Urine Nitrate Negative Urine Bilirubin Negative Urine Urobilinogen 0.2 Ur Leukocyte Esterase Trace H Urine RBC 0-1/hpf Urine WBC 0-1/hpf Ur Squamous Epith Cells 0-1 /hpf Urine Bacteria Few (2-10) H Ur Culture Indicated? Cult not indicated Vol Urine Centrifuged 10ml (spun) Assessment & Plan Assessment and plan (1) Hypercalcemia: Status: Acute (2) Hypomagnesemia: Status: Acute (3) Hypophosphatasia: Status: Acute (4) STEVE (acute kidney injury): Status: Acute (5) COPD (chronic obstructive pulmonary disease): Status: Acute (6) Diabetes: Status: Acute (7) HTN (hypertension): Status: Acute Assessment & Plan narrative: Hypercalcemia / Hypomagnesemia / Hypophosphatemia - Calcitonin - IVFs - replaced / monitored electrolytes STEVE - IVFs HTN - Losartan and HCTZ held due to STEVE DM - SS, CCD - metformin, Amaryl held due to STEVE COPD - albuterol prn Chronic DVT of leg - Xarelto Time-Based Coding :: [TOTAL MINUTES] spent with patient and on the chart (including review of chart, obtaining history, exam, reviewing outside data, placing orders, documenting exam and treatment plan, and counseling patient) on [DATE].
[2024-06-28] MEDS: SODIUM CHLORIDE 0.9% 1,000 ML 100 ML IV (22:15)
[2024-06-29] VITALS: BP 129/66; PULSE 98; TEMP 37.5; O2SAT 98
[2024-06-29 01:03] VITALS: O2SAT 92
[2024-06-29 04:00] VITALS: BP 132/75; PULSE 92; RESP 20; TEMP 36.4; O2SAT 99
[2024-06-29 06:43] LABS: Add Manual Diff / Slide Review NO; Basophils Absolute Auto 100 /uL (0-100); Basophils Percent Auto 0.9 % (0-2); Eosinophils Absolute Auto 200 /uL (0-450); Eosinophils Percent Auto 2.1 % (2-4); Hematocrit 34.2 % (36-46); Hemoglobin 11.4 g/dL (12.0-16.0); Lymphocytes Absolute Auto 3000 /uL (1100-4500); Mean Corpuscular HGB Conc 33.4 % (30-36); Mean Corpuscular Hemoglobin 29.3 PG (26-34); Mean Corpuscular Volume 87.7 fL (80-100); Monocytes Absolute Auto 600 /uL (0-900); Monocytes Percent Auto 7.4 % (3-14); Neutrophils Absolute Auto 4700 /uL (1500-7000); Neutrophils Percent Auto 54.6 % (50-75); Platelet Count 329 X10^3/uL (150-400); Red Cell Distribution Width 16.5 % (11.6-14.8); White Blood Cell Count 8.6 X10^3/uL (4.5-11.0)
[2024-06-29 06:51] LABS: Alanine Aminotransferase 15 IU/L (<35); Albumin 3.4 g/dL (3.5-5.0); Albumin Globulin Ratio 1.5 (1.0-2.8); Alkaline Phosphatase 126 U/L (38-126); Aspartate Aminotransferase 19 IU/L (14-36); BUN Creatinine Ratio 13.7 (6-22); Bilirubin Total 0.5 mg/dL (0.2-1.3); Blood Urea Nitrogen 21 mg/dL (7-17); Calcium 11.4 mg/dL (8.4-10.2); Carbon Dioxide 31 mmol/L (22-32); Chloride 102 mmol/L (98-107); Estimated Glomerular Filt Rate 34 mL/min (>60); Globulin 2.3 g/dL (1.7-4.1); Glucose 114 mg/dL (80-110); HEMOLYSIS < 15 (0-50); Magnesium 1.6 mg/dL (1.6-2.3); Phosphorous 1.7 mg/dL (2.8-4.1); Potassium 3.5 mmol/L (3.4-5.1); Sodium 136 mmol/L (137-145); Total Protein 5.7 g/dL (6.3-8.2)
[2024-06-29 08:00] VITALS: BP 122/63; PULSE 85; RESP 15; TEMP 36.5; O2SAT 97
[2024-06-29] MEDS: SODIUM CHLORIDE 0.9% 1,000 ML 100 ML IV (08:00)
[2024-06-29] MEDS: POTASSIUM CHLORIDE 20 MEQ TAB PO (08:42)
[2024-06-29] MEDS: RIVAROXABAN 10 MG TABLET PO (08:42)
[2024-06-29] MEDS: SODIUM,POTASSIUM PHOSPHATES PACKET 2 EACH PO ×2 (08:42→12:05)
[2024-06-29] MEDS: MAGNESIUM CHLORIDE 64 MG TABLET 128 MG PO (08:49)
[2024-06-29] MEDS: INSULIN LISPRO 100 UNIT/ML 3ML VIAL SUBCUT ×2 (12:07→16:37)
--- NOTE | 2024-06-29 12:10 | P.PN_ITS ---
Subjective Subjective Date Patient Seen: 06/29/24 Time Patient Seen: 08:55 Interval history: Narrative: 79 y/o long-term resident of a facility, with PMH of chronic LLE DVT, COPD. scoliosis, gout, HTN, DM, OA, presented to ED for progressive, non-resolving generalized weakness. Labs done in facility revealed hypercalcemia. Referred to ED wher she had initial treatment with calcitonin and IVFs. Patient unable to report a lot on admission due to either mild cognitive deficits, acute encephalopathy or both. Interval history: She is mildly confused this morning but has no specific complaints. Exam Vital Signs (past 8 hours): - 06/29/24 08:00 Temperature 97.7 F Pulse Rate 85 Respiratory Rate 15 Blood Pressure 122/63 Pulse Oximetry 97 Oxygen Flow Rate 2 Fraction of Inspired Oxygen 28 SaO2/FiO2 Ratio 328 Oxygen Delivery Method Nasal Cannula Oxygen Flow Rate 2 Narrative Exam Narrative: GENERAL: This is a well-nourished, well-developed patient, in no apparent distress, mildly confused, pleasant. EYES: Pupils equal round and reactive. Extraocular motions intact. No scleral icterus. No injection or drainage. ENT: Mucous membranes pink and moist. NECK: Supple, nontender, no meningeal signs. CARDIOVASCULAR: Regular rate and rhythm without murmurs, gallops, or rubs. RESPIRATORY: Clear to auscultation. GASTROINTESTINAL: Abdomen soft, non-tender, nondistended. EXTREMITIES: No clubbing, cyanosis, or edema. NEUROLOGIC: Alert, oriented, speech fluent, full upper and lower motor strength, no focal deficits evident. DERMATOLOGIC: No rashes or skin lesions. Objective Labs 06/29/24 05:40 06/29/24 05:40 Labs: Laboratory Results - last 24 hr 06/28/24 06/28/24 06/29/24 17:40 19:36 05:40 WBC 11.0 8.6 RBC 4.52 3.90 L Hgb 13.1 11.4 L Hct 39.6 34.2 L MCV 87.4 87.7 MCH 28.9 29.3 MCHC 33.0 33.4 RDW 16.3 H 16.5 H Plt Count 381 329 Neut % (Auto) 43.6 L 54.6 Lymph % (Auto) 46.6 H 35.0 [place] % (Auto) 6.8 7.4 Eos % (Auto) 1.7 L 2.1 Baso % (Auto) 1.3 0.9 Neut # (Auto) 4800 4700 Lymph # (Auto) 5100 H 3000 [place] # (Auto) 700 600 Eos # (Auto) 200 200 Baso # (Auto) 100 100 Sodium 133 L 136 L Potassium 4.1 3.5 Chloride 98 102 Carbon Dioxide 31 31 BUN 23 H 21 H Creatinine 1.64 H 1.53 H Estimated GFR 31 L 34 L BUN/Creatinine Ratio 14.0 13.7 Glucose 98 114 H Calcium 13.5 H* 11.4 H Phosphorus 1.1 L* 1.7 L Magnesium 1.2 L 1.6 Total Bilirubin 0.7 0.5 AST 25 19 ALT 20 15 Alkaline Phosphatase 136 H 126 Total Protein 6.9 5.7 L Albumin 4.1 3.4 L Globulin 2.8 2.3 Albumin/Globulin Ratio 1.5 1.5 Urine Color Yellow Urine Appearance Clear Urine pH 7.[address] <=1.005 Urine Protein Negative Urine Glucose (UA) Negative Urine Ketones Negative Urine Occult Blood Negative Urine Nitrate Negative Urine Bilirubin Negative Urine Urobilinogen 0.2 Ur Leukocyte Esterase Trace H Urine RBC 0-1/hpf Urine WBC 0-1/hpf Ur Squamous Epith Cells 0-1 /hpf Urine Bacteria Few (2-10) H Ur Culture Indicated? Cult not indicated Vol Urine Centrifuged 10ml (spun) PFSH Medical History Basal cell adenocarcinoma Chronic airway obstruction COPD (chronic obstructive pulmonary disease) Diabetes DVT (deep venous thrombosis) (~02/2023) Gout HLD (hyperlipidemia) HTN (hypertension) Humerus fracture (04/01/24) Osteoarthritis Rosacea Scoliosis SVT (supraventricular tachycardia) Surgical History H/O total hip arthroplasty H/O: hysterectomy History of gastric stapling Hx of total knee arthroplasty (02/2023) Social History household members: none Smoking Status: Former smoker alcohol intake: current Assessment & Plan Assessment & Plan narrative: Hypercalcemia / Hypomagnesemia / Hypophosphatemia - Calcitonin - IVFs - replaced / monitored electrolytes - PTH pending STEVE - IVFs HTN - Losartan and HCTZ held due to STEVE DM - SS, CCD - metformin, Amaryl held due to STEVE COPD - albuterol prn Chronic DVT of leg - Xarelto CLIFF: Tomorrow back to [facility] if doing well. PROFEE Charge codes Subsequent inpatient/observation care: [id number]
[2024-06-29] MEDS: CALCITONIN,SALMON, NASAL SPRAY 1 SPRAYS NASAL (13:05)
--- NOTE | 2024-06-29 14:04 | CM.DANOTE ---
Addendum entered by ROBSON Valadez 06/29/24 14:30: ADD: According to Samantha at [facility]; they cannot admit patient under her prior skilled diagnosis related to patient's shoulder surgery-used at [facility]. In order to admit to [facility], patient will need a new three night INPT stay related to her improving hypercalcemia and STEVE. If patient is considered for discharge 06/30, patient will likely need to return to [facility] in order to access the 36 remaining days of her initial [facility] SNF benefit (100 days total). Need to review above with patient and DPOA Brandi. Original Note: Initial DCP Assessment Note Pt is a 79 yo female, resident of [place], arrives from [facility], admitted for management of hypercalcemia. PCP: Jesse Rossi Payer: [facility]/Sha aguirre Vona Reviewed chart, met with patient and her step daughter/DPOA Brandi (lives in [place] reviewed discharge plan. Patient had been living at home [facility], had shoulder surgery at and discharged to [facility], there were no beds available at [facility] at that time according to Brandi. Brandi explains that patient and she prefer [facility] if they have beds available at patient's discharge. Patient would like to return home eventually and patient/family have been discussing increasing care at home w/caregivers vs eventual move into an [facility]. Brandi aware that patient is nearing completion of her 100 day SNF benefit and knows patient will need to pay privately at SNF if this benefit period runs out. Discussed LTC options including application to [facility] assisted care. Discussed this referral with Samantha at [facility] who is reviewing now. PASRR completed. Plan: Discharge back to [facility] vs [facility] depending on acceptance and bed availability. CM team will plan to follow clinical course closely. CLIFF 06/30. ROBSON Hernandez Discharge Planning/Care Management CM Discharge Assessment Start: 06/29/24 14:01 Freq: Status: Active Protocol: Document 06/29/24 14:01 SHAY (Rec: 06/29/24 14:04 SHAY [id number]) Discharge Planning Assessment Assigned Airbrush Painter ROBSON Nance/Assigned Designee Name Brandi Cha, dtep daughter/ DPOA Contact Information [phone] Advance Directives? Yes Advance Directives on File No History Provided By Patient,Family Member,Medical Record Prior Living Arrangements House Household Members none Type of transporation used prior to Relies on Others admit Facility Name Admitted From: [facility] Willing to Return to Facility? No: Would like to DC to [facility] Independent with ADL's No Is patient alert and oriented? No: Mild confusion noted this visit, [facility] Needs Assistance With Bathing,Grooming,Meal Prep, Toileting,Managing Medications ,Home Chores / Shopping Patient/Family Preference Prison Facility Barriers to Discharge No Discharge Plan Prison Facility Transportation Arrangement Wheelchair van Referrals Initiated [facility] If [facility] plan is [facility]F: Has PASSR been No completed? Whiteboard Updated in Patient Room with Yes name and ext. # of Airbrush Painter Review Status In Process
[2024-06-29 16:00] VITALS: BP 123/56; PULSE 91; RESP 24; TEMP 36.6; O2SAT 97
[2024-06-29 20:00] VITALS: BP 116/61; PULSE 88; RESP 17; TEMP 36.3; O2SAT 96
[2024-06-30] VITALS: BP 120/67; PULSE 86; RESP 18; TEMP 35.9; O2SAT 93
[2024-06-30 04:00] VITALS: BP 104/64; PULSE 83; RESP 17; TEMP 36.6; O2SAT 92
[2024-06-30 05:07] LABS: Calcium 11.4 mg/dL (8.7-10.3); Parathyroid Hormone, Intact 21 pg/mL (15-65)
[2024-06-30 06:25] LABS: Add Manual Diff / Slide Review NO; Basophils Absolute Auto 0 /uL (0-100); Basophils Percent Auto 0.5 % (0-2); Eosinophils Absolute Auto 200 /uL (0-450); Eosinophils Percent Auto 3.1 % (2-4); Hematocrit 32.7 % (36-46); Hemoglobin 11.1 g/dL (12.0-16.0); Lymphocytes Absolute Auto 3500 /uL (1100-4500); Lymphocytes Percent Auto 44.6 % (25-40); Mean Corpuscular HGB Conc 33.8 % (30-36); Mean Corpuscular Hemoglobin 29.5 PG (26-34); Mean Corpuscular Volume 87.3 fL (80-100); Monocytes Absolute Auto 700 /uL (0-900); Monocytes Percent Auto 8.4 % (3-14); Neutrophils Absolute Auto 3400 /uL (1500-7000); Neutrophils Percent Auto 43.4 % (50-75); Platelet Count 309 X10^3/uL (150-400); Red Blood Cell Count 3.75 X10^6/uL (4.0-5.2); Red Cell Distribution Width 16.5 % (11.6-14.8); White Blood Cell Count 7.8 X10^3/uL (4.5-11.0)
[2024-06-30 06:33] LABS: Phosphorous 2.6 mg/dL (2.8-4.1)
[2024-06-30 06:34] LABS: BUN Creatinine Ratio 14.2 (6-22); Blood Urea Nitrogen 19 mg/dL (7-17); Calcium 10.4 mg/dL (8.4-10.2); Carbon Dioxide 30 mmol/L (22-32); Chloride 101 mmol/L (98-107); Estimated Glomerular Filt Rate 40 mL/min (>60); Glucose 143 mg/dL (80-110); HEMOLYSIS < 15 (0-50); Potassium 3.6 mmol/L (3.4-5.1); Sodium 135 mmol/L (137-145)
[2024-06-30 06:35] LABS: Magnesium 1.3 mg/dL (1.6-2.3)
[2024-06-30] MEDS: CALCITONIN,SALMON, NASAL SPRAY 1 SPRAYS NASAL (08:28)
[2024-06-30] MEDS: INSULIN LISPRO 100 UNIT/ML 3ML VIAL SUBCUT ×3 (08:28→16:55)
[2024-06-30] MEDS: RIVAROXABAN 10 MG TABLET PO (08:28)
[2024-06-30 09:35] VITALS: BP 125/55; PULSE 76; RESP 15; TEMP 36.4; O2SAT 96
[2024-06-30] MEDS: MAGNESIUM CHLORIDE 64 MG TABLET 128 MG PO ×2 (10:51→18:09)
--- NOTE | 2024-06-30 11:19 | OT.IP.EVAL ---
Current Diagnoses Type 2 diabetes mellitus without complications (06/28/24) Other disorders of phosphorus metabolism (06/28/24) Hypomagnesemia (06/28/24) Hypercalcemia (06/28/24) Essential (primary) hypertension (06/28/24) Chronic obstructive pulmonary disease, unspecified (06/28/24) Acute kidney failure, unspecified (06/28/24) Past Medical History (Last Reviewed 06/29/24 @ 12:13 by Doyle Walsh MD) Basal cell adenocarcinoma Chronic airway obstruction COPD (chronic obstructive pulmonary disease) Diabetes DVT (deep venous thrombosis) (~02/2023) Gout HLD (hyperlipidemia) HTN (hypertension) Humerus fracture (04/01/24) Osteoarthritis Rosacea Scoliosis SVT (supraventricular tachycardia) Surgical History (Last Reviewed 06/29/24 @ 12:13 by Doyle Walsh MD) H/O total hip arthroplasty H/O: hysterectomy History of gastric stapling Hx of total knee arthroplasty (02/2023) Occupational Therapy Inpatient Evaluation/Re-Eval M1 PT/OT-IP Prior Functional Status Start: 06/30/24 11:23 Freq: NEEDED Status: Active Protocol: Document 06/30/24 11:24 CGR (Rec: 06/30/24 11:56 CGR [id number]) Medical Review Prior Functional Status Medical History Reviewed Yes Communication Pt is an effective verbal communicator. Mobility and Gait Pt was IND for mobility at baseline which was prior to her fall in April. She did not use any AD. Activities of Daily Living and IADL's Pt was IND in all ADLs but had a house keeper for cleaning around the home and garderners for outside. 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 Prior Functional Level (Other details) Pt had a fall in her [place] with B humeral fx and underwent B TSA in April then discharged to [facility]. Pt would like to transfer to [facility] to complete her therapy. Social History Household Members none Living Arrangements House Number of Floors (Floors) One Floor Number of Stairs To Enter/Railing? 2 steps with R railing Home Environment Standard Height Toilet,Walk in Shower,Built-In Shower Seat Home Equipment Front Wheel Walker,Manual Wheelchair,Hand Held Shower, Grab Bars In Shower Employment Status Retired M2 OT-IP Current Condition Start: 06/30/24 11:23 Freq: Status: Active Protocol: Document 06/30/24 11:24 CGR (Rec: 06/30/24 11:56 CGR [id number]) Occupational Therapy Current Condition Current Condition Evaluation Date 06/30/24 Treatment Diagnosis hypercalemia Diagnosis Onset Date 06/28/24 Post Operative Precautions Other Precautions Pt with B reverse TSA, no current orders/restrictions. M3 OT- IP Subjective and Pain Start: 06/30/24 11:23 Freq: Status: Active Protocol: Document 06/30/24 11:24 CGR (Rec: 06/30/24 11:56 CGR [id number]) OT- Subjective Occupational Therapy Visit Type Type Initial Evaluation Visit Start Time 10:50 Visit Stop Time 11:19 OT Pain Assessment Pain When Pain Assessed shld move Pain Present Pain Present Pain Reported Location Bilateral Shoulder Scale Used did not rate Pain Behaviors Facial Grimacing,Guarding Management Techniques Distraction,Modification of Treatment,Re-positioning M4 OT- IP ADL's Start: 06/30/24 11:23 Freq: Status: Active Protocol: Document 06/30/24 11:24 CGR (Rec: 06/30/24 11:56 CGR [id number]) OT [id number] Comments OT Self-Feeding Comments not meal time OT ADL-Grooming General Evaluation Grooming Ability Standby Assistance Areas Needing Assistance Face Washing Comments OT Grooming Comments seated in chair OT ADL-Oral Care General Eval Oral Care Ability Standby Assistance Areas of Assistance Brushing Teeth Comments Oral Care Comments seated in chair OT ADL-Dressing Comments OT Dressing Comments not performed OT ADL-Toileting General Evaluation Toileting Ability Maximum Assistance Areas Needing Assistance Manage Clothing,Perform Perineal Hygiene Comments OT Toileting Comments pt was able to get pants down but needed assist with back pericare and getting pants back up. OT ADL-Bathing Comments OT Bathing Comments not performed M5 OT- IP IADL's Start: 06/30/24 11:23 Freq: Status: Active Protocol: Document 06/30/24 11:24 CGR (Rec: 06/30/24 11:56 CGR [id number]) OT-Instrumental Activities of Daily Living Deficits IADL Deficits Identified No Deficits Home Safety Awareness Awareness of Need for Assistance at Home Good Awareness Ability to Problem Solve Emergency Able to Problem Solve Situations Medication Management Medication Management No Deficits Identified Money Management Money Management Caregiver Provides Assistance Meal Preparation Meal Preparation Caregiver Provides Assist Manager Purchasing Manager Purchasing Caregiver Provides Assist Driving Driving Comments 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 M6 OT- IP Functional Cognition Start: 06/30/24 11:23 Freq: Status: Active Protocol: Document 06/30/24 11:24 CGR (Rec: 06/30/24 11:56 CGR [id number]) Cognitive Factors Limiting Selfcare Function Cognitive Ability Level of Alertness Alert Patient Orientation Name,Age,Birthday,Month,Date, Year,Day of Week,Place, Situation Attention Span Ability Capable of Focused Attention, Capable of Sustained Attention Ability to Follow Commands Able to Follow One Step Commands with Increased Time, Able to Follow One Step Commands with Repetition OT- Vision and Hearing OT- Hearing Assessment OT- Hearing Assessment WFL OT- Vision Assessment Visual Acuity Glasses All The Time Vision Assessment Comments Pt with double vision. She states she has never had good vision since adulthood. M7 OT- IP Mobility and Balance Start: 06/30/24 11:23 Freq: Status: Active Protocol: Document 06/30/24 11:24 CGR (Rec: 06/30/24 11:56 CGR [id number]) OT- Bed Mobility Assessment Supine to Sit Supine to Sit Assist Moderate Assistance,1 Person Assistance,Head of Bed Elevated,Bedrails Scooting Scooting to Edge of Bed Moderate Assistance,1 Person Assistance,Head of Bed Elevated,Bedrails OT-Transfer Assessment Sit to and From Stand Sit to and from Stand Minimal Assistance,Moderate Assistance,1 Person Assistance Transfers Transfer Ability Minimal Assistance,Moderate Assistance,1 Person Assistance Technique Transfer Destination Bed,Chair,Toilet Transfer Technique Stand Step Pivot Devices Transfer Assistive Devices Gait Belt,Front Wheeled Walker Comments Mobility Comments Pt needed more assist off the toilet and was unable to use the grab bar because it is too high for her arm to reach comfortably. OT- Gait Assessment Gait Gait Assistance Required: Minimum Assistance,1 Person Assist Assistive Devices Assistive Device Gait Belt,Front Wheeled Walker Comments Gait Ability Comments mobility around the room. OT- Balance Assessment Sitting Balance and Reactions Static Sitting Balance Ability Good Dynamic Sitting Balance Ability Good M8 OT- IP Objective Assessments Start: 06/30/24 11:23 Freq: Status: Active Protocol: Document 06/30/24 11:24 CGR (Rec: 06/30/24 11:56 CGR [id number]) OT Gross Range of Motion Upper Extremity Range of Motion ROM Impairments 0-70 without increased pain to B shlds. OT Strength Comments Strength Comments not tested d/t recent B reverse TSA OT- Coordination Assessment Upper Extremity Finger to Nose Test Within Functional Limits Finger Tapping Test Within Functional Limits OT-Muscle Tone Assessment Muscle Tone WNL Yes OT Sensation Assessment Edema Edema Absent M9 OT- IP Assessment and Plan Start: 06/30/24 11:23 Freq: Status: Active Protocol: Document 06/30/24 11:24 CGR (Rec: 06/30/24 11:56 CGR [id number]) OT Summary Assessment and Plan Potential Rehabilitation Potential Good Analytic Complexity at Evaluation High Summary OT Impairments Pain,Range of Motion,Strength, Balance,Functional Mobility, Grooming,Dressing,Toileting, Bathing,Toilet Transfers, Shower Transfers,Activity Tolerance Progress Towards Goals Slow Progress due to Pain,Slow Progress due to Activity Tolerance Assessment Summary Pt presents as a high complexity evaluation s/p admit for hypercalcemia. Pt had a fall in April with B humeral fx and underwent B reverse TSA. She has been at SNF since her sx and will need continued SNF assist. Pt needs assist with bed mobility and toielting, likley also with dressing. Pt with SOB with activity but o2 stats 98% . Pt states she would like to go to [facility] rather than return to [facility]. CM aware. Will continue to follow for OT needs. Goals Grooming Goal Independent Dressing Goal Independent,Instrument Technician,Sock Aid Toileting Goal Minimal Assistance Bathing Goal Minimal Assistance Toilet Transfer Goal Independent Shower Transfer Goal Minimal Assistance Days to Meet Goals 30 Frequency of Treatment Other frequency 5x a week Treatment Plan OT Treatment Plan ADL Training,Functional Mobility,Therapeutic Exercises ,Patient/Family Education, Discharge Planning Other Treatment Recommendations and Next Adls standing, increase Treatment Focus endurance, shower Discharge Recommendations OT Discharge Recommendations SNF Rehab Transportation Needs at Discharge Private Vehicle,Wheelchair/ Cabulance
[2024-06-30 12:00] VITALS: BP 118/63; PULSE 63; RESP 17; TEMP 36.4; O2SAT 100
--- NOTE | 2024-06-30 12:10 | PT.IIE ---
Current Diagnoses Type 2 diabetes mellitus without complications (06/28/24) Other disorders of phosphorus metabolism (06/28/24) Hypomagnesemia (06/28/24) Hypercalcemia (06/28/24) Essential (primary) hypertension (06/28/24) Chronic obstructive pulmonary disease, unspecified (06/28/24) Acute kidney failure, unspecified (06/28/24) Surgical History (Last Reviewed 06/29/24 @ 12:13 by Doyle Walsh MD) H/O total hip arthroplasty H/O: hysterectomy History of gastric stapling Hx of total knee arthroplasty (02/2023) Medical History (Last Reviewed 06/29/24 @ 12:13 by Doyle Walsh MD) Basal cell adenocarcinoma Chronic airway obstruction COPD (chronic obstructive pulmonary disease) Diabetes DVT (deep venous thrombosis) (~02/2023) Gout HLD (hyperlipidemia) HTN (hypertension) Humerus fracture (04/01/24) Osteoarthritis Rosacea Scoliosis SVT (supraventricular tachycardia) Physical Therapy Inpatient Evaluation/Re-Eval M1 PT/OT-IP Prior Functional Status Start: 06/30/24 11:23 Freq: NEEDED Status: Active Protocol: Document 06/30/24 12:25 AMB (Rec: 06/30/24 13:08 AMB [id number]) Medical Review Prior Functional Status Medical History Reviewed Yes Communication Pt is an effective verbal communicator. Mobility and Gait Pt was IND for mobility at baseline which was prior to her fall in April. She did not use any AD. Activities of Daily Living and IADL's Pt was IND in all ADLs but had a house keeper for cleaning around the home and garderners for outside. 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 Prior Functional Level (Other details) Pt had a fall in her Garden with B humeral fx and underwent B TSA in April then discharged to [facility]. Pt would like to transfer to [facility] to complete her therapy. Social History Household Members none Living Arrangements House Number of Floors (Floors) One Floor Number of Stairs To Enter/Railing? 2 steps with R railing Home Environment Standard Height Toilet,Walk in Shower,Built-In Shower Seat Home Equipment Front Wheel Walker,Manual Wheelchair,Hand Held Shower, Grab Bars In Shower Employment Status Retired Additional Social History Comment Patient's step daughter lives close by M2 PT-IP Current Condition Start: 06/30/24 11:32 Freq: NEEDED Status: Active Protocol: Document 06/30/24 12:25 AMB (Rec: 06/30/24 13:08 AMB [id number]) Physical Therapy Current Condition Current Condition Evaluation Date 06/30/24 Treatment Diagnosis weakness s/p bilateral reverse shoulder replacement Onset Date 06/28/24 M3 PT-IP Subjective Start: 06/30/24 11:32 Freq: NEEDED Status: Active Protocol: Document 06/30/24 12:25 AMB (Rec: 06/30/24 13:08 AMB [id number]) Subjective Physical Therapy Visit Type Type Initial Evaluation Visit Start Time 11:45 Visit Stop Time 12:10 Physical Therapy Visit Comments Patient Comments Pt is ready to get up for PT, lunch is coming soon, and OT was just in the room Therapy Pain Assessment Pain When Pain Assessed At Rest Pain Present Pain Present Denied Pain M4 PT-IP Mobility and Gait Start: 06/30/24 11:32 Freq: NEEDED Status: Active Protocol: Document 06/30/24 12:25 AMB (Rec: 06/30/24 13:08 AMB [id number]) PT-Transfer Assessment Sit to and From Stand Sit to and from Stand Minimal Assistance Equipment Transfer Assistive Device Gait Belt,Front Wheeled Walker Transfers Transfer Destination Chair Transfer Technique Stand Pivot Transfer Ability Level of Assist Minimal Assistance Comments Mobility Comments Sherin was sitting in her chair waiting for lunch when PT arrived. Scooted forward in chair with Elva and then stood from chair with Min/ModA at gait belt, as limited shoulder range limits pushing with UE support. When getting back to the chair, able to sit down to the chair with Emanuel with good control. Gait Assessment Gait Gait Assistance Required: Contact Guard Assist Distance (Feet) 20 Assistive Devices Assistive Device Front Wheeled Walker Gait Deviations General Gait Pattern Decreased Stride Length, Decreased Feet Clearance, Flexed Trunk Factors Limiting Gait Function Factors Limiting Gait Function Decreased Activity Tolerance, Decreased Strength,Poor Balance Comments Gait Comments Pt complained of low energy/ fatigue while ambulating around her room with FWW requiring CGA. Slow gait pattern. Patient and family agree she is walking much slower than before her fall/ surgery. M5 PT-IP Objective Assessments Start: 06/30/24 11:32 Freq: NEEDED Status: Active Protocol: Document 06/30/24 12:25 AMB (Rec: 06/30/24 13:08 AMB [id number]) Gross Range of Motion Upper Extremity ROM Assessment Bilaterally Impaired Strength Lower Extremity Strength Assessment Bilaterally Impaired M6 PT-IP Treatment Start: 06/30/24 11:32 Freq: NEEDED Status: Active Protocol: Document 06/30/24 12:25 AMB (Rec: 06/30/24 13:08 AMB [id number]) Physical Therapy Treatment Education Education Provided Safety M7 PT-IP Assessment and Plan Start: 06/30/24 11:32 Freq: NEEDED Status: Active Protocol: Document 06/30/24 12:25 AMB (Rec: 06/30/24 13:08 AMB [id number]) PT Summary Assessment and Plan Potential Rehabilitation Potential Good Status of Condition at Evaluation Stable Summary Impairments ROM,Strength,Balance,Bed Mobility,Transfers,Gait, Activity Tolerance Assessment Summary Sherin was admitted from [facility] 2+ months s/p fall that required bilateral reverse total shoulder surgery . During that time per family report she has become slower with lower energy and generally less able to tolerate activity. They are hoping that she can go to a different SNF and that with the treatment of her hypercalcemia she will be able to tolerate more activity. At this time, she needed Min/ ModA to move from sit to stand and CGA to ambulate short distances with CGA and FWW and is not tolerating longer distances at this time. Goals Bed Mobility Goal Contact Guard Assistance Transfer Goal Minimal Assistance,Four Wheeled Walker Gait Goal Standby Assistance,Front Wheel Walker Gait Distance 100 Days to Meet Goals 4 Frequency of Treatment Frequency Of Treatment Once a Day Treatment Plan Physical Therapy Treatment Plan Bed Mobility Training,Transfer Training,Gait Training, Therapeutic Exercise,Balance Retraining,Neuromuscular Re-ed Other Recommendations and Next Treatment Improve bed mobility, sit to Focus stand and gait tolerance, noting pt's limited ROM and strength in bilateral shoulders Recommendations To Nursing Amount of Assist Needed 1 Person Assist Discharge Recommendations PT Discharge Recommendations SNF Rehab Transportation Needs at Discharge Wheelchair/Cabulance
--- NOTE | 2024-06-30 13:14 | PM.PN.1 ---
Subjective Subjective Interval history: Summary: 79 y/o long-term resident of a facility, with PMH of chronic LLE DVT, COPD. scoliosis, gout, HTN, DM, OA, presented to ED for progressive, non-resolving generalized weakness. Labs done in facility revealed hypercalcemia. Referred to ED wher she had initial treatment with calcitonin and IVFs. Patient unable to report a lot on admission due to either mild cognitive deficits, acute encephalopathy or both. S: She was still weak, but doing better. Her calcium is improved since admission. Review of previous calciums in April were normal. Her PTH is normal as well. She was taking Tums which were stopped about a week ago when her 1st lab value was 14. Today, she was weak but not really confused. Her calcium is 10.4. Several of her medications were held. She was on hydrochlorothiazide. Exam Vital Signs (past 8 hours): - 06/30/24 09:35 06/30/24 12:00 Temperature 97.6 F 97.6 F Pulse Rate 76 63 Respiratory Rate 15 17 Blood Pressure 125/55 L 118/63 Pulse Oximetry 96 100 Oxygen Flow Rate 0 0 Fraction of Inspired Oxygen 28 SaO2/FiO2 Ratio 328 Oxygen Delivery Method Nasal Cannula Oxygen Flow Rate 0 Narrative Exam Narrative: NAD, alert and oriented. Fluent speech. Lungs are clear, normal rate and effort. Heart is regular, no murmur gallop or rub. Abdomen is soft, non distended. Extremities are free of edema. Objective Labs 06/30/24 05:40 06/30/24 05:40 Labs: Laboratory Results - last 24 hr 06/29/24 06/30/24 05:40 05:40 WBC 7.8 RBC 3.75 L Hgb 11.1 L Hct 32.7 L MCV 87.3 MCH 29.5 MCHC 33.8 RDW 16.5 H Plt Count 309 Neut % (Auto) 43.4 L Lymph % (Auto) 44.6 H [place] % (Auto) 8.4 Eos % (Auto) 3.1 Baso % (Auto) 0.5 Neut # (Auto) 3400 Lymph # (Auto) 3500 [place] # (Auto) 700 Eos # (Auto) 200 Baso # (Auto) 0 Sodium 135 L Potassium 3.6 Chloride 101 Carbon Dioxide 30 BUN 19 H Creatinine 1.34 H Estimated GFR 40 L BUN/Creatinine Ratio 14.2 Glucose 143 H Calcium 10.4 H Phosphorus 2.6 L Magnesium 1.3 L PTH Intact 21 Calcium (PTH Intact) 11.4 H PTH Intact Intraop Comment PFSH Medical History Scoliosis Gout Humerus fracture (04/01/24) Basal cell adenocarcinoma DVT (deep venous thrombosis) (~02/2023) SVT (supraventricular tachycardia) HLD (hyperlipidemia) COPD (chronic obstructive pulmonary disease) Osteoarthritis Chronic airway obstruction Rosacea Diabetes HTN (hypertension) Surgical History Hx of total knee arthroplasty (02/2023) H/O total hip arthroplasty H/O: hysterectomy History of gastric stapling Social History household members: none Smoking Status: Former smoker alcohol intake: current Assessment & Plan Assessment & Plan narrative: 1. Hypercalcemia, present on admission and improving. 2. Hypomagnesemia, present on admission and improving. 3. Hypophosphatemia, present on admission and improving. 4. STEVE, present on admission and improving. 5. HTN, stable. - Losartan and HCTZ held due to STEVE 6. DM, stable. - SS, CCD - metformin, Amaryl held due to STEVE 7. COPD, stable. - albuterol prn 8. Chronic DVT of leg, stable. - Xarelto PLAN: -the stepdaughter voiced a lot of concerns regarding her care at the [facility]. Specifically delayed lab evaluation even though the family was quite concerned about her change in cognition. -calciums were normal in April -no history of malignancy -she was on a diuretic presented with multiple electrolyte abnormalities and STEVE consistent with volume depletion. -We will monitor her electrolytes and calcium without IV fluids over the next 24 hours to see if she has a another increasing calcium more as able to keep her other electrolytes stable. -We will add an SPEP and PTH related peptide to the lab work -PT and OT consults, goal is halfway facility at [facility] if able. Time-Based Coding :: [TOTAL MINUTES] spent with patient and on the chart (including review of chart, obtaining history, exam, reviewing outside data, placing orders, documenting exam and treatment plan, and counseling patient) on [DATE].
--- NOTE | 2024-06-30 16:12 | CM.DPNOTE ---
DCP Note BIODIESEL DIVISION MANAGER reviewed EMR Per Veronica at , able to accept pt tomorrow (07/01) transport scheduled between 11:30-12:30. kindly asked pt documentation specify her STEVE is noted as improving and not resolved for MCR coverage. Per provider, should be cleared to dc to [facility] tomorrow. BIODIESEL DIVISION MANAGER spoke with fred-dtr/ANICETO Paz ([phone]). reviewed above plan. In agreement, preference is to have pt dc to [facility]. ANICETO Paz reports verbal understanding pt has limited MCR days left available and if pt will need continued rehab needs to pay privately. I will be ready with the $14,000 check whenever. Brandi plans to be with pt tomorrow for dc and to go over paperwork as well as plans to continue to assist pt in either establishing PP in home caregivers vs RAFAELA. BIODIESEL DIVISION MANAGER reviewed plan with pt. pt appreciative and excited that she can dc to and not back to [facility]. denies questions at this time. P: dc to [facility] tomorrow between 11:30-12:30. PASRR previously completed. CM team will continue to follow closely ROBSON Bailey
[2024-06-30 18:00] VITALS: BP 146/66; PULSE 83; RESP 17; TEMP 36.4; O2SAT 94
[2024-06-30] MEDS: SENNOSIDES 8.6 MG TABLET 17.2 MG PO (21:30)
[2024-06-30 22:08] VITALS: BP 125/74; PULSE 96; RESP 16; TEMP 36.4; O2SAT 100
[2024-07-01 00:31] VITALS: BP 131/61; PULSE 81; RESP 18; TEMP 36.2; O2SAT 94
[2024-07-01 05:42] LABS: Alanine Aminotransferase 15 IU/L (<35); Albumin 3.2 g/dL (3.5-5.0); Albumin Globulin Ratio 1.3 (1.0-2.8); Alkaline Phosphatase 109 U/L (38-126); Aspartate Aminotransferase 17 IU/L (14-36); BUN Creatinine Ratio 13.1 (6-22); Bilirubin Total 0.4 mg/dL (0.2-1.3); Blood Urea Nitrogen 16 mg/dL (7-17); Calcium 10.3 mg/dL (8.4-10.2); Carbon Dioxide 29 mmol/L (22-32); Chloride 104 mmol/L (98-107); Estimated Glomerular Filt Rate 45 mL/min (>60); Globulin 2.4 g/dL (1.7-4.1); Glucose 163 mg/dL (80-110); HEMOLYSIS < 15 (0-50); Potassium 3.5 mmol/L (3.4-5.1); Sodium 134 mmol/L (137-145); Total Protein 5.6 g/dL (6.3-8.2)
[2024-07-01 05:47] LABS: Magnesium 1.1 mg/dL (1.6-2.3)
[2024-07-01 08:00] VITALS: BP 119/66; PULSE 74; RESP 15; TEMP 36.3; O2SAT 97
[2024-07-01] MEDS: CALCITONIN,SALMON, NASAL SPRAY 1 SPRAYS NASAL (08:43)
[2024-07-01] MEDS: INSULIN LISPRO 100 UNIT/ML 3ML VIAL SUBCUT (08:44)
[2024-07-01] MEDS: RIVAROXABAN 10 MG TABLET PO (08:44)
[2024-07-01] MEDS: ACETAMINOPHEN 325 MG TABLET 650 MG PO (08:44)
--- NOTE | 2024-07-01 08:48 | CM.MNRNOTE ---
07/01/24Thursday Left nostril calcitonin spray
[2024-07-01] MEDS: MAGNESIUM CHLORIDE 64 MG TABLET 128 MG PO (10:24)
[2024-07-01] MEDS: POTASSIUM CHLORIDE 20 MEQ TAB PO (10:25)
--- NOTE | 2024-07-01 11:38 | P.DS_ITS ---
History of Present Illness History of Present Illness Date Patient Seen: 07/01/24 Time Patient Seen: 09:30 Chief complaint: hypercalcemia Narrative: 79 y/o long-term resident of a facility, with PMH of chronic LLE DVT, COPD. scoliosis, gout, HTN, DM, OA, presented to ED for progressive, non-resolving generalized weakness. Labs done in facility revealed hypercalcemia. Referred to ED wher she had initial treatment with calcitonin and IVFs. Patient unable to report a lot on admission due to either mild cognitive deficits, acute encephalopathy or both. Discharge Providers Provider Date of admission: 06/28/24 20:47 Discharge Date: 07/01/24 Primary care physician: Jesse Rossi MD Consults: 06/30/24 10:19 Consult to Occupational Therapy Evaluate & Treat Comment: Physician Instructions: Evaluate and treat Consult to Physical Therapy Evaluate & Treat Comment: Physician Instructions: Evaluate and Treat Discharge provider: Doyle Walsh MD Summary Hospital Course Discharge Diagnosis: 1. Hypercalcemia, likely due to dehydration, complete workup pending 2. Metabolic encephalopathy due to 1., improved 3. Acute kidney injury, improving 4. Hypomagnesemia, improving 5. Hypophosphatemia, improving 6. Diabetes mellitus, type 2 7. Hypertension 8. COPD 9. Chronic left leg DVT, on Xarelto 10. Bilateral humerus fracture, status post bilateral total shoulder replacement 04/22/2024 Hospital Course: The patient was admitted and treated with IV fluids, calcitonin nasal spray, magnesium and phosphorus replacement, and improved, with calcium falling from 13.5 to 11.4 in the 1st 24 hours and 10.3 at discharge. She was initially confused though improved to baseline mental status. Renal function also improved with presenting acute kidney injury with creatinine 1.64 mg/dL improved to 1.22 mg/dL at discharge. Magnesium 1.2 on admission and was repleted and improved to 1.60 returned at 1.1 at discharge and ongoing magnesium supplementation is planned with outpatient follow-up. Parathyroid hormone was normal at 21. PTH related peptide and serum protein electrophoresis are pending at the time of discharge. Arrangements were made for discharge to custodial facility for ongoing follow-up and monitoring, as well as ongoing therapy. She is hoping to return home to live independently in [place] after recuperation. Status at Discharge Cognitive/behavioral status at discharge: oriented Functional status at discharge: uses cane/walker Overall status at discharge: patient is progressing back to baseline Time Spent with Patient Time spent: Greater than 30 minutes Exam Vital Signs (past 8 hours): - 07/01/24 07:43 07/01/24 08:00 Temperature 97.4 F L Pulse Rate 74 Respiratory Rate 15 Blood Pressure 119/66 Pulse Oximetry 97 Oxygen Delivery Method Nasal Cannula Oxygen Flow Rate 0 Fraction of Inspired Oxygen 28 SaO2/FiO2 Ratio 328 Oxygen Delivery Method Nasal Cannula Oxygen Flow Rate 0 Narrative Exam Narrative: NAD, alert and oriented. Fluent speech. Lungs are clear, normal rate and effort. Heart is regular, no murmur gallop or rub. Abdomen is soft, non distended. Extremities are free of edema. Objective Labs 06/30/24 05:40 07/01/24 05:10 Labs: Laboratory Results - last 24 hr 07/01/24 05:10 Sodium 134 L Potassium 3.5 Chloride 104 Carbon Dioxide 29 BUN 16 Creatinine 1.22 H Estimated GFR 45 L BUN/Creatinine Ratio 13.1 Glucose 163 H Calcium 10.3 H Magnesium 1.1 L Total Bilirubin 0.4 AST 17 ALT 15 Alkaline Phosphatase 109 Total Protein 5.6 L Albumin 3.2 L Globulin 2.4 Albumin/Globulin Ratio 1.3 PFSH Medical History Scoliosis Gout Humerus fracture (04/01/24) Basal cell adenocarcinoma DVT (deep venous thrombosis) (~02/2023) SVT (supraventricular tachycardia) HLD (hyperlipidemia) COPD (chronic obstructive pulmonary disease) Osteoarthritis Chronic airway obstruction Rosacea Diabetes HTN (hypertension) Surgical History Hx of total knee arthroplasty (02/2023) H/O total hip arthroplasty H/O: hysterectomy History of gastric stapling Social History household members: none Smoking Status: Former smoker alcohol intake: current Discharge Plan Discharge Plan Patient Disposition: SNF Transfer to: [facility] Provider Discharge Comment: Check BMP and magnesium 1 week; followup PTHrP and SPEP studies with SNF provider Discharge orders & Medications Prescriptions: New Xarelto 10 mg Tablet 10 mg PO DAILY Qty: 30 0RF magnesium chloride 64 mg tablet,delayed release (DR/EC) 64 mg PO BEDTIME Qty: 30 0RF Continued cholecalciferol (vitamin D3) 5,000 UNIT capsule 125 mcg PO DAILY Qty: 0 omega 3-yjf-cdk-fish oil [Fish Oil] 1,000 MG capsule 1 cap PO DAILY Qty: 0 atorvastatin 40 mg Tablet 40 mg PO QPM metformin 1,000 mg Tablet 1,000 mg PO BID losartan 25 mg Tablet 25 mg PO DAILY albuterol sulfate 90 mcg/actuation Hfa Aerosol Inhaler 2 puff INHALATION 6XD PRN (Reason: SOB) hydrochlorothiazide 12.5 mg Tablet 12.5 mg PO QAM acetaminophen 325 mg Tablet 650 mg PO Q6H PRN (Reason: Fever/Mild Pain (1-3)) Qty: 240 0RF bisacodyl 10 mg Suppository 10 mg [place] PRN PRN (Reason: Constipation) Qty: 30 0RF Rx Instructions: give on day 5 if no bm docusate sodium 100 mg Capsule 100 mg PO BID PRN (Reason: constipation) Qty: 60 1RF ondansetron 4 mg Tablet,Disintegrating 4 mg PO Q4HR PRN (Reason: Nausea And Vomiting) Qty: 30 0RF Adult One Daily Multivitamin capsule 1 cap PO DAILY sennosides [senna] 8.6 mg Tablet 17.2 mg PO BEDTIME PRN (Reason: Constipation) Rx Instructions: give on day 4 if no BM calcium-magnesium 750-465 mg Tablet 1 tab PO DAILY Rx Instructions: daily suplement Discontinued glimepiride 4 mg Tablet 4 mg PO DAILY ibuprofen 800 mg Tablet 800 mg PO 2XD PRN (Reason: Pain (Scale Score 1-3)) hydrocodone-acetaminophen [[place]] 5-325 mg Tablet 1 tab PO Q4H PRN (Reason: Pain (Scale Score 1-3)) Follow up/Referrals: Jesse Rossi MD [Primary Care Provider] - Visit Report/Discharge Packet Stand Alone Forms: Patient Portal/API Discharge Data Primary Care Provider: Jesse Rossi Quality MIPS - Admit I confirm the patient?s Advance Care Plan is present, Code status is documented, Surrogate decision maker is in patient?s record [If Yes, STOP here]: Yes MIPS - Meds 'Current medications' to include all prescriptions, evcg-rwc-lxjvoeh products, herbals, cannabis/cannabidiol products, and vitamin/mineral/dietary (nutritional) supplements. I have utilized all available resources to obtain, update, or review the patient?s current medications. [If Yes, STOP here]: Yes MIPS - DC The patient has a history of heart transplant or Left Ventricular Assist Device (LVAD). If yes, STOP here.: No The patient has current or prior documentation of left ventricular ejection fraction (LVEF) less than or equal to 40%, or moderate or severely depressed left ventricular systolic function.: No A. The patient was prescribed or already taking an Angiotensin-Converting Enzyme (RUBINA) Inhibitor, or Angiotensin Receptor Bozena (ARB).: Yes B. The patient was prescribed or already taking a beta-bozena. [If Yes to Both A & B, STOP here]: No Patient not prescribed/taking RUBINA or ARB, no reason given.: No Patient not prescribed/taking beta-bozena, no reason given.: No PROFEE Charge Codes Discharge inpatient/observation: [id number]
--- NOTE | 2024-07-01 12:48 | CM.DPNOTE ---
DCP Note JANITORIAL SUPERVISOR reviewd EMR. Per provider, pt cleared to dc to today. CC Kylah kindly agreed to send meds/PASRR/order/dc information to . Per Veronica at , can flower buncher or picker pt at 11:30am. JANITORIAL SUPERVISOR updated CRISIS CLINICIAN/RN and provided RN with report number. JANITORIAL SUPERVISOR met with pt and step-dtr/POA in room. in agreement with plan. deny questions at this time. JANITORIAL SUPERVISOR attempted to call Danii at [facility] to update her, went straight to . JANITORIAL SUPERVISOR emailed Danii at [facility] with updates that POA would like to flower buncher or picker pt's belongings later this afternoon. No further CM needs identified at this time. CM team will continue to follow as needed ROBSON Bailey
[2024-07-04 14:13] LABS: Albumin 2.7 g/dL (2.9-4.4); Alpha-1-Globulin 0.2 g/dL (0.0-0.4); Alpha-2-Globulin 0.6 g/dL (0.4-1.0); Gamma Globulin 0.8 g/dL (0.4-1.8); Globulin Total 2.4 g/dL (2.2-3.9); Protein, Total 5.1 g/dL (6.0-8.5)
== END 2024-07-01 11:55 | DRG 640 ==
LOC: ED 20:16 → AC 20:47
PROVIDERS: Emergency Medicine; Hospitalist; Internal Medicine; Pharmacist Pharmacist Clinician (PhC)/ Clinical Pharmacy Specialist; Admitting Provider Internal Medicine; Emergency Provider Emergency Medicine; PCP Internal Medicine; Referring Provider Emergency Medicine; Visit Provider Internal Medicine
DX: E83.52 Hypercalcemia (principal); G93.41 Metabolic encephalopathy; N17.9 Acute kidney failure, unspecified; I82.502 Chronic embolism and thrombosis of unspecified deep veins of left lower extremity; E83.42 Hypomagnesemia; E83.39 Other disorders of phosphorus metabolism; J44.9 Chronic obstructive pulmonary disease, unspecified; E11.9 Type 2 diabetes mellitus without complications; I10 Essential (primary) hypertension; E86.0 Dehydration; E78.5 Hyperlipidemia, unspecified; M10.9 Gout, unspecified; Z96.612 Presence of left artificial shoulder joint; Z87.891 Personal history of nicotine dependence; Z96.611 Presence of right artificial shoulder joint; Z79.01 Long term (current) use of anticoagulants; Z79.84 Long term (current) use of oral hypoglycemic drugs
CPT/HCPCS: 36415; 36592; 80048; 80053; 81001; 82310; 82397; 82962; 83735; 83970; 84100; 84155; 84165; 85025; 96361; 96365; 96366; 96372; 96375; 97161; 97167; 97535; 99284; J0630; J1815; J2405; J3475

== ENCOUNTER → 2024-12-22 13:30 | Outpatient (CLI) | payer MEDICARE, OTHER, SELFPAY ==
[2024-06-28 20:50] VITALS: BMI 30.2
--- NOTE | 2024-12-22 13:35 | DI.RAD.S_ITS ---
PROCEDURE: XR KNEE LT 3V INDICATIONS: Pain in left leg TECHNIQUE: Three views of the knee were acquired. COMPARISON: [facility], CR, XR KNEE 1 OR 2 VIEWS LEFT, 03/17/2023, 13:29. [facility], CR, XR KNEE LT 3V, 11/14/2020, 12:16. FINDINGS: Bones: No acute fractures. Left knee arthroplasty components are in position. No radiographic evidence of periprosthetic lucency. Soft tissues: Trace joint effusion. No suspicious soft tissue calcifications. IMPRESSION: Left knee arthroplasty components in place without radiographic findings to suggest loosening. Trace, chronic knee joint effusion. Dictated by: Keila Oscar M.D. on 12/22/2024 at 22:27 Approved by: Keila Oscar M.D. on 12/22/2024 at 22:29
== END ==
PROVIDERS: PCP Internal Medicine; Referring Provider Internal Medicine; Visit Provider Internal Medicine
DX: M25.562 Pain in left knee (principal); M79.605 Pain in left leg; Z96.652 Presence of left artificial knee joint
CPT/HCPCS: 73562

== ENCOUNTER 2025-03-29 17:19 | Emergency (ER) | payer MEDICARE, OTHER, SELFPAY ==
[2024-06-28 20:50] VITALS: BMI 30.2
--- NOTE | 2025-03-29 17:24 | DI.RAD.S_ITS ---
PROCEDURE: XR CHEST 1V INDICATIONS: Chest Pain TECHNIQUE: One view of the chest was acquired. COMPARISON: [facility], CHEST 1 VIEW, 05/19/2014, 13:48. [facility], , CHEST 2 VIEW, 05/18/2014, 15:15. FINDINGS: Surgical changes and devices: None. Lungs and pleura: Lungs are clear. No pleural effusions or pneumothorax. Mediastinum: Mediastinal contours appear normal. Heart size is normal. Bones and chest wall: No suspicious bony lesions. Overlying soft tissues appear unremarkable. IMPRESSION: No acute cardiopulmonary abnormality is seen. Dictated by: Ovidio Walker M.D. on 03/29/2025 at 18:42 Approved by: Ovidio Walker M.D. on 03/29/2025 at 18:43
[2025-03-29 17:30] VITALS: BP 140/60; PULSE 118; RESP 22; TEMP 37.4; O2SAT 92; BMI 31.7
--- NOTE | 2025-03-29 17:34 | EKG_ITS ---
[place] [address] [address] [place] [id number] Test Date: 2025-03-29 Pat Name: Sherin Carias Department: [facility] Room: Gender: Female Senior Nurse Manager: MARIA TERESA : 1945 Requested By: Order Number: [id number] Reading MD: Volodymyr Gilmore MD Measurements Intervals [place] Rate: 116 P: 78 AL: 154 QRS: 23 QRSD: 76 T: 22 QT: 318 QTc: 442 Interpretive Statements Sinus tachycardia Electronically Signed On 03-30-2025 8:03:38 PDT by Volodymyr Gilmore MD
--- NOTE | 2025-03-29 17:42 | ED.CHESTPAIN ---
HPI - Chest Pain <Pool Lr MD - Last Filed: 03/30/25 08:59> General Chief Complaint: Shortness of Breath/Dyspnea Stated Complaint: chest pain/rib pain , weakness hard time breathing Time Seen by Provider: 03/29/25 17:41 History of Present Illness HPI narrative: Patient brought in by private vehicle for reproducible left lower anterior rib pain. Started 12:30 p.m. today and improved by 5:30 p.m.. Just prior to arrival. However patient still has pain with movement twisting rotating her chest wall. It was hurting more with deep breath and coughing and movement. Denies any recent exertional chest pain. Patient does have history of hypertension diabetes DVT SVT COPD Related Data Home Medications ?Medication ?Instructions ?Recorded ?Confirmed cholecalciferol (vitamin D3) 125 125 mcg PO DAILY ##0 03/12/17 06/28/24 mcg (5,000 unit) capsule omega 0-uif-ckh-fish oil 1,000 mg 1 cap PO DAILY ##0 03/12/17 06/28/24 (120 mg-180 mg) capsule (Fish Oil) albuterol sulfate 90 mcg/actuation 2 puff inhalation 6XD PRN SOB 04/21/24 06/28/24 aerosol inhaler atorvastatin 40 mg tablet 40 mg PO QPM 04/21/24 06/28/24 hydrochlorothiazide 12.5 mg tablet 12.5 mg PO QAM 04/21/24 06/28/24 losartan 25 mg tablet 25 mg PO DAILY 04/21/24 06/28/24 metformin 1,000 mg tablet 1,000 mg PO BID 04/21/24 06/28/24 Adult One Daily Multivitamin 1 cap PO DAILY 06/28/24 06/30/24 calcium-magnesium 750 mg-465 mg 1 tab PO DAILY 06/28/24 06/30/24 tablet sennosides 8.6 mg tablet (senna) 17.2 mg PO BEDTIME PRN Constipation 06/28/24 06/28/24 Previous Rx's ?Medication ?Instructions ?Recorded acetaminophen 325 mg tablet 650 mg (2 x 325 mg) PO Q6H PRN 04/25/24 Fever/Mild Pain (1-3) #240 tabs bisacodyl 10 mg rectal suppository 10 mg VT PRN PRN Constipation #30 04/25/24 ea docusate sodium 100 mg capsule 100 mg PO BID PRN constipation #60 04/25/24 caps ondansetron 4 mg disintegrating 4 mg PO Q4HR PRN Nausea And 04/25/24 tablet Vomiting #30 tabs magnesium chloride 64 mg 64 mg PO BEDTIME #30 tabs 07/01/24 (magnesium chloride) tablet,delayed release rivaroxaban 10 mg tablet (Xarelto) 10 mg PO DAILY #30 tabs 07/01/24 Allergies Allergy/AdvReac Type Severity Reaction Status Date / Time latex Allergy Mild ITCHING Verified 04/22/24 09:00 AND REDNESS oxycodone AdvReac Intermediate Nausea Verified 04/22/24 09:00 Review of Systems <Pool Lr MD - Last Filed: 03/30/25 08:59> Review of Systems Narrative: GENERAL: Negative chills, fatigue, malaise, fever, sweats. HEENT: Negative sinus pain, ear pain, sore throat RESPIRATORY: Negative dyspnea, cough CARDIOVASCULAR: Positive chest pain, negative palpitations GASTROINTESTINAL: Negative vomiting, nausea, abdominal pain : Negative dysuria, frequency, hematuria MUSCULOSKELETAL: Negative muscle or bony pain SKIN: Negative rash, skin lesions NEUROLOGIC: Negative weakness, numbness ROS Unobtainable: All systems reviewed & are unremarkable except as noted in HPI and below Patient History <Pool Lr MD - Last Filed: 03/30/25 08:59> Medical History Scoliosis Gout Humerus fracture (04/01/24) Basal cell adenocarcinoma DVT (deep venous thrombosis) (~02/2023) SVT (supraventricular tachycardia) HLD (hyperlipidemia) COPD (chronic obstructive pulmonary disease) Osteoarthritis Chronic airway obstruction Rosacea Diabetes HTN (hypertension) Surgical History Hx of total knee arthroplasty (02/2023) H/O total hip arthroplasty H/O: hysterectomy History of gastric stapling Social History household members: none alcohol intake: current alcohol intake frequency: a few times a month Exam <Pool Lr MD - Last Filed: 03/30/25 08:59> Narrative Exam Narrative: GENERAL: in no distress, not toxic not dyspneic HEAD: Normocephalic. EYES: Pupils equal round ENT: Mucous membranes moist. NECK: Trachea midline. CARDIOVASCULAR: Regular rate and rhythm RESPIRATORY: Clear to auscultation. Breath sounds equal bilaterally. No wheezes, rales, or rhonchi. Reproducible left lower anterior rib tenderness, worse with rotating chest wall left and right. No rash GASTROINTESTINAL: Abdomen soft, non-tender EXTREMITIES: No gross deformities. No calf tenderness BACK: No flank tenderness. NEURO: AOx4. Clear speech SKIN: Warm and dry PSYCH: Not anxious, is cooperative Initial Vital Signs Initial Vital Signs: Vital Signs Temperature 99.4 F 03/29/25 17:30 Pulse Rate 118 H 03/29/25 17:30 Respiratory Rate 22 03/29/25 17:30 Blood Pressure 140/60 03/29/25 17:30 Pulse Oximetry 92 03/29/25 17:30 Oxygen Delivery Method Room Air 03/29/25 17:30 <Jocy Petersen DO - Last Filed: 03/30/25 01:28> Initial Vital Signs Initial Vital Signs: Vital Signs Temperature 99.4 F 03/29/25 17:30 Pulse Rate 118 H 03/29/25 17:30 Respiratory Rate 22 03/29/25 17:30 Blood Pressure 140/60 03/29/25 17:30 Pulse Oximetry 92 03/29/25 17:30 Oxygen Delivery Method Room Air 03/29/25 17:30 Course <Pool Lr MD - Last Filed: 03/30/25 08:59> Orders Ordered: Discontinued Medications Aspirin (Aspirin 81 Mg Chew Tab) 324 mg PO NOW ONE Stop: 03/29/25 17:25 Vital Signs Vital signs: Vital Signs - 8 hr 03/29/25 17:30 03/29/25 18:58 03/29/25 18:59 Temperature 99.4 F Pulse Rate 118 H 106 H Respiratory Rate 22 Blood Pressure 140/60 130/61 Pulse Oximetry 92 Oxygen Delivery Method Room Air 03/29/25 18:59 03/29/25 19:00 03/29/25 19:00 Temperature Pulse Rate 104 H 104 H Respiratory Rate 21 22 Blood Pressure 127/61 Pulse Oximetry 93 93 Oxygen Delivery Method Room Air Room Air 03/29/25 19:30 03/29/25 19:30 Temperature Pulse Rate 100 H Respiratory Rate 24 Blood Pressure 124/58 L Pulse Oximetry 96 Oxygen Delivery Method <Jocy Petersen DO - Last Filed: 03/30/25 01:28> Orders Ordered: Discontinued Medications Aspirin (Aspirin 81 Mg Chew Tab) 324 mg PO NOW ONE Stop: 03/29/25 17:25 Vital Signs Vital signs: Vital Signs - 8 hr 03/29/25 17:30 03/29/25 18:58 03/29/25 18:59 Temperature 99.4 F Pulse Rate 118 H 106 H Respiratory Rate 22 Blood Pressure 140/60 130/61 Pulse Oximetry 92 Oxygen Delivery Method Room Air 03/29/25 18:59 03/29/25 19:00 03/29/25 19:00 Temperature Pulse Rate 104 H 104 H Respiratory Rate 21 22 Blood Pressure 127/61 Pulse Oximetry 93 93 Oxygen Delivery Method Room Air Room Air 03/29/25 19:30 03/29/25 19:30 Temperature Pulse Rate 100 H Respiratory Rate 24 Blood Pressure 124/58 L Pulse Oximetry 96 Oxygen Delivery Method MDM - Chest Pain <Pool Lr MD - Last Filed: 03/30/25 08:59> Lab Data 03/29/25 17:58 03/29/25 17:58 Labs: Lab Results 03/29/25 03/29/25 Range/Units 17:58 17:59 WBC 16.3 H (4.5-11.0) X10^3/uL RBC 3.77 L (4.0-5.2) X10^6/uL Hgb 11.0 L (12.0-16.0) g/dL Hct 32.9 L (36-46) % MCV 87.2 (80-100) fL MCH 29.3 (26-34) PG MCHC 33.5 (30-36) % RDW 15.2 H (11.6-14.8) % Plt Count 295 (150-400) X10^3/uL Neut % (Auto) 87.1 H (50-75) % Lymph % (Auto) 4.9 L (25-40) % [place] % (Auto) 7.5 (3-14) % Eos % (Auto) 0.0 L (2-4) % Baso % (Auto) 0.5 (0-2) % Neut # (Auto) 83647 H (9832-2174) /uL Lymph # (Auto) 800 L (7151-3556) /uL [place] # (Auto) 1200 H (0-900) /uL Eos # (Auto) 0 (0-450) /uL Baso # (Auto) 100 (0-100) /uL PT 11.6 (9.4-12.5) SECONDS INR 1.0 (0.9-1.3) APTT 25 L (25.1-36.5) SECONDS D-Dimer 428 (<500) ng/ml Sodium 131 L (137-145) mmol/L Potassium 4.0 (3.4-5.1) mmol/L Chloride 98 (98-107) mmol/L Carbon Dioxide 27 (22-32) mmol/L BUN 44 H (7-17) mg/dL Creatinine 1.55 H (0.52-1.04) mg/dL Estimated GFR 33 L (>60) mL/min BUN/Creatinine Ratio 28.4 H (6-22) Glucose 258 H (70-99) mg/dL Calcium 9.6 (8.4-10.2) mg/dL Magnesium 1.5 L (1.6-2.3) mg/dL Total Bilirubin 0.6 (0.2-1.3) mg/dL AST 26 (14-36) IU/L ALT 24 (<35) IU/L Alkaline Phosphatase 96 (38-126) U/L Total Creatine Kinase 55 (30-135) U/L Troponin I < 0.012 (0.01-0.034) ng/mL NT-Pro-B Natriuret Pep 194 (<450) pg/mL Total Protein 6.9 (6.3-8.2) g/dL Albumin 4.1 (3.5-5.0) g/dL Globulin 2.8 (1.7-4.1) g/dL Albumin/Globulin Ratio 1.5 (1.0-2.8) Lipase 142 (23-300) U/L SARS-CoV-2 (PCR) Negative (Negative) Influenza A (RT-PCR) Flu a negative (NEGATIVE) Influenza B (RT-PCR) Flu b negative (NEGATIVE) RSV (PCR) Negative (Negative) MDM Narrative Medical decision making narrative: Patient brought here by from home. Patient had constant right leg weakness from 5:00 p.m. last night until 12 noon today. No prior history of heart attack strokes diabetes high blood pressure or hypercholesteremia. Patient has frontal temporal dementia. Patient is a very poor historian. Is very difficult with following commands at baseline. states no recent illness no fever chills cough cold or congestion. No fall or injury. MDM After history and exam, CBC CMP troponin D-dimer respiratory panel EKG chest x-ray Differential considered: Includes but not limited to STEMI non-STEMI pulmonary embolism pneumonia Medical records reviewed: No recent visit for this complaint Lab Test results independently reviewed as above. Pertinent findings: Independently reviewed EKG sinus tachycardia rate 116 otherwise normal EKG Imaging studies independently reviewed: Consultations: Re-evaluations: Discussion: 6:[address] Lr: Sign out to Dr. Petersen. Laboratory studies are pending. Patient here for reproducible left-sided chest pain. Diagnosis: <Jocy Petersen, - Last Filed: 03/30/25 01:28> Lab Data Labs: Lab Results 03/29/25 03/29/25 Range/Units 17:58 17:59 WBC 16.3 H (4.5-11.0) X10^3/uL RBC 3.77 L (4.0-5.2) X10^6/uL Hgb 11.0 L (12.0-16.0) g/dL Hct 32.9 L (36-46) % MCV 87.2 (80-100) fL MCH 29.3 (26-34) PG MCHC 33.5 (30-36) % RDW 15.2 H (11.6-14.8) % Plt Count 295 (150-400) X10^3/uL Neut % (Auto) 87.1 H (50-75) % Lymph % (Auto) 4.9 L (25-40) % [place] % (Auto) 7.5 (3-14) % Eos % (Auto) 0.0 L (2-4) % Baso % (Auto) 0.5 (0-2) % Neut # (Auto) 14374 H (2084-8249) /uL Lymph # (Auto) 800 L (1053-2690) /uL [place] # (Auto) 1200 H (0-900) /uL Eos # (Auto) 0 (0-450) /uL Baso # (Auto) 100 (0-100) /uL PT 11.6 (9.4-12.5) SECONDS INR 1.0 (0.9-1.3) APTT 25 L (25.1-36.5) SECONDS D-Dimer 428 (<500) ng/ml Sodium 131 L (137-145) mmol/L Potassium 4.0 (3.4-5.1) mmol/L Chloride 98 (98-107) mmol/L Carbon Dioxide 27 (22-32) mmol/L BUN 44 H (7-17) mg/dL Creatinine 1.55 H (0.52-1.04) mg/dL Estimated GFR 33 L (>60) mL/min BUN/Creatinine Ratio 28.4 H (6-22) Glucose 258 H (70-99) mg/dL Calcium 9.6 (8.4-10.2) mg/dL Magnesium 1.5 L (1.6-2.3) mg/dL Total Bilirubin 0.6 (0.2-1.3) mg/dL AST 26 (14-36) IU/L ALT 24 (<35) IU/L Alkaline Phosphatase 96 (38-126) U/L Total Creatine Kinase 55 (30-135) U/L Troponin I < 0.012 (0.01-0.034) ng/mL NT-Pro-B Natriuret Pep 194 (<450) pg/mL Total Protein 6.9 (6.3-8.2) g/dL Albumin 4.1 (3.5-5.0) g/dL Globulin 2.8 (1.7-4.1) g/dL Albumin/Globulin Ratio 1.5 (1.0-2.8) Lipase 142 (23-300) U/L SARS-CoV-2 (PCR) Negative (Negative) Influenza A (RT-PCR) Flu a negative (NEGATIVE) Influenza B (RT-PCR) Flu b negative (NEGATIVE) RSV (PCR) Negative (Negative) MDM Narrative Medical decision making narrative: Patient brought here by from home. Patient had constant right leg weakness from 5:00 p.m. last night until 12 noon today. No prior history of heart attack strokes diabetes high blood pressure or hypercholesteremia. Patient has frontal temporal dementia. Patient is a very poor historian. Is very difficult with following commands at baseline. states no recent illness no fever chills cough cold or congestion. No fall or injury. MDM After history and exam, CBC CMP troponin D-dimer respiratory panel EKG chest x-ray Differential considered: Includes but not limited to STEMI non-STEMI pulmonary embolism pneumonia Medical records reviewed: No recent visit for this complaint Lab Test results independently reviewed as above. Pertinent findings: Independently reviewed EKG sinus tachycardia rate 116 otherwise normal EKG Imaging studies independently reviewed: Consultations: Re-evaluations: Discussion: 6:[address] Lr: Sign out to Dr. Petersen. Laboratory studies are pending. Patient here for reproducible left-sided chest pain. Diagnosis: 1929 Dr. Petersen, patient signed out to me by Dr. Lr, I have seen evaluated patient myself. She reports that she had sudden onset chest pain started earlier today. She reports she was able to get out of the shower dry her feet off but then when it came time to put on her shoes her friend had to help her because her chest her. Hurts every time she breathes and moves. She has longstanding emphysema but denies any kind of fever chills or cough. She reports improvement while in the emergency department. She is found to have mild leukocytosis of 16 she is not on any kind of prednisone no anemia Electrolytes within normal limits, sodium is 130 it previously it was 134 creatinine slightly elevated but stable at 1.5 glucose is 258 Troponin is negative BNP is 194 D-dimer less than 500 unlikely to be a pulmonary embolism Chest x-ray negative for acute cardiopulmonary process At this time patient reports improvement in pain it seems to be every time she breathes or moves which is consistent with the inflammatory process. No evidence of infection did not have any sort of fever. Chest x-ray is clear. Suspect leukocytosis is inflammatory rather than infectious. At this time she feels ready able to go. Discharge Plan Departure Patient Disposition: Home Clinical Impression: Pleurisy Instructions: Pleurisy Activity Restrictions/Additional Instructions: *You have been diagnosed with pleurisy *What to do: At this time likely an inflammatory process *Continue to take medications as directed Motrin 600 mg every 6 hours if needed for [id number] *Follow up with your primary care provider in 2-3 days or call [phone] *Return to ER if you should have increasing pain shortness of breath fever chills or any new, worsening or concerning symptoms Prescriptions: No Action cholecalciferol (vitamin D3) 5,000 UNIT capsule 125 mcg PO DAILY Qty: 0 omega 4-qle-qmp-fish oil [Fish Oil] 1,000 MG capsule 1 cap PO DAILY Qty: 0 atorvastatin 40 mg Tablet 40 mg PO QPM metformin 1,000 mg Tablet 1,000 mg PO BID losartan 25 mg Tablet 25 mg PO DAILY albuterol sulfate 90 mcg/actuation Hfa Aerosol Inhaler 2 puff INHALATION 6XD PRN (Reason: SOB) hydrochlorothiazide 12.5 mg Tablet 12.5 mg PO QAM acetaminophen 325 mg Tablet 650 mg PO Q6H PRN (Reason: Fever/Mild Pain (1-3)) Qty: 240 0RF bisacodyl 10 mg Suppository 10 mg VT PRN PRN (Reason: Constipation) Qty: 30 0RF Rx Instructions: give on day 5 if no bm docusate sodium 100 mg Capsule 100 mg PO BID PRN (Reason: constipation) Qty: 60 1RF ondansetron 4 mg Tablet,Disintegrating 4 mg PO Q4HR PRN (Reason: Nausea And Vomiting) Qty: 30 0RF Adult One Daily Multivitamin capsule 1 cap PO DAILY sennosides [senna] 8.6 mg Tablet 17.2 mg PO BEDTIME PRN (Reason: Constipation) Rx Instructions: give on day 4 if no BM calcium-magnesium 750-465 mg Tablet 1 tab PO DAILY Rx Instructions: daily suplement Xarelto 10 mg Tablet 10 mg PO DAILY Qty: 30 0RF magnesium chloride 64 mg tablet,delayed release (DR/EC) 64 mg PO BEDTIME Qty: 30 0RF Referrals: Jesse Rossi MD [Primary Care Provider, Internal Medicine] Stand Alone Forms: Patient Portal/API
[2025-03-29 18:08] LABS: Add Manual Diff / Slide Review NO; Hematocrit 32.9 % (36-46); Hemoglobin 11.0 g/dL (12.0-16.0); Lymphocytes Absolute Auto 800 /uL (1100-4500); Mean Corpuscular HGB Conc 33.5 % (30-36); Mean Corpuscular Hemoglobin 29.3 PG (26-34); Mean Corpuscular Volume 87.2 fL (80-100); Platelet Count 295 X10^3/uL (150-400)
[2025-03-29 18:18] LABS: INR 1.0 (0.9-1.3); Prothrombin Time 11.6 SECONDS (9.4-12.5)
[2025-03-29 18:20] LABS: PTT Partial Thromboplastin Tim 25 SECONDS (25.1-36.5)
[2025-03-29 18:23] LABS: Alanine Aminotransferase 24 IU/L (<35); Albumin 4.1 g/dL (3.5-5.0); Albumin Globulin Ratio 1.5 (1.0-2.8); Alkaline Phosphatase 96 U/L (38-126); Blood Urea Nitrogen 44 mg/dL (7-17); Calcium 9.6 mg/dL (8.4-10.2); Carbon Dioxide 27 mmol/L (22-32); Chloride 98 mmol/L (98-107); Creatine Kinase 55 U/L (30-135); Estimated Glomerular Filt Rate 33 mL/min (>60); Globulin 2.8 g/dL (1.7-4.1); Glucose 258 mg/dL (70-99); HEMOLYSIS 18 (0-50); Lipase 142 U/L (23-300); Magnesium 1.5 mg/dL (1.6-2.3); Potassium 4.0 mmol/L (3.4-5.1); Sodium 131 mmol/L (137-145); Total Protein 6.9 g/dL (6.3-8.2)
[2025-03-29 18:35] LABS: NT-proBNP (BNP-Adult 18+) 194 pg/mL (<450); Troponin I < 0.012 ng/mL (0.01-0.034)
[2025-03-29 18:44] LABS: Influenza A - CEPHEID Flu A NEGATIVE (NEGATIVE); Influenza B - CEPHEID Flu B NEGATIVE (NEGATIVE)
[2025-03-29 18:45] LABS: COVID-19 CEPHEID 4-PLEX PCR Negative (Negative)
[2025-03-29 18:58] VITALS: PULSE 106
[2025-03-29 18:59] VITALS: BP 130/61; PULSE 104; RESP 21; O2SAT 93
[2025-03-29 19:00] VITALS: BP 127/61; PULSE 104; RESP 22; O2SAT 93
[2025-03-29 19:30] VITALS: BP 124/58; PULSE 100; RESP 24; O2SAT 96
== END 2025-03-29 20:03 | disposition home or self-care (01) ==
PROVIDERS: Emergency Medicine; Emergency Provider Emergency Medicine; PCP Internal Medicine
DX: R09.1 Pleurisy (principal)
CPT/HCPCS: 36415; 71045; 80053; 82550; 83690; 83735; 83880; 84484; 85025; 85379; 85610; 85730; 87637; 93005; 99283; 99284

== ENCOUNTER 2025-04-01 09:37 | Inpatient (IN) | payer MEDICARE, OTHER, SELFPAY ==
[2024-06-28 20:50] VITALS: BMI 30.2
[2025-04-01] VITALS (39 sets, daily range): BP systolic 100–135; BP diastolic 51–75; PULSE 71–140; RESP 14–40; TEMP 35.7–37.1; O2SAT 89–100; BMI 28.2
--- NOTE | 2025-04-01 | DI.CT.S_ITS ---
PROCEDURE: CT CHEST WO CON INDICATIONS: CHEST PAIN RADIATING TO BACK TECHNIQUE: Noncontrast 5 mm thick sections acquired from the pulmonary apices to the posterior costophrenic angles. 1 mm lung window, 5 mm thick coronal and sagittal and 7 mm axial MIP reformats were then acquired. For radiation dose reduction, the following was used: automated exposure control, adjustment of mA and/or kV according to patient size. COMPARISON: [facility], CR, XR CHEST 1V, 04/01/2025, 9:54. FINDINGS: Image quality: There is artifact associated with the metallic hardware. Artifact from the metallic hardware is reduced by metal reconstruction algorithm. Limited by lack of IV contrast. Lower Neck: No enlarged lymph nodes. Thyroid: There is a 3 cm right thyroid nodule seen, with calcification. Axillae: No enlarged lymph nodes. Chest Wall: Unremarkable. Bones: Bilateral shoulder arthroplasty hardware can be seen, with associated streak artifact. Age-appropriate bony degenerative changes are seen. Mild dextroconvex scoliotic curvature is seen. Lungs and Pleura: Dense infiltrate can be seen involving the dependent left lower lobe, with air bronchograms. There is a small left-sided pleural effusion. The right lung appears clear. No pneumothorax. Heart: Heart size is normal. No pericardial effusion. Thoracic Vessels: The aorta and pulmonary arteries demonstrate normal size. Atherosclerotic calcification is noted. Mediastinum and [place]: No enlarged lymph nodes. Esophagus: No wall thickening. No hiatal hernia. Upper Abdomen: Gastric postoperative changes are seen. The visualized portions of the upper abdominal structures are otherwise unremarkable for imaging technique. IMPRESSION: Dense left lower lobe infiltrate can be seen. Small left-sided pleural effusion. 3 cm right thyroid nodule. When clinically appropriate, a follow-up thyroid ultrasound is recommended for further evaluation. Atherosclerotic calcification of the aorta, yet without a dasia acute abnormality, to the limits of this noncontrast study. Additional findings: Bilateral shoulder arthroplasty hardware Gastric postoperative change Dictated by: Harpal Godinez M.D. on 04/01/2025 at 10:34 Approved by: Harpal Godinez M.D. on 04/01/2025 at 10:37
--- NOTE | 2025-04-01 09:55 | EKG_ITS ---
[address] [id number] Test Date: 2025-04-01 Pat Name: Sherin Carias Department: Room: Gender: Female It Lead: : 1945 Requested By: Order Number: [id number] Reading MD: Volodymyr Gilmore MD Measurements Intervals [place] Rate: 132 P: CA: QRS: 20 QRSD: 78 T: -19 QT: 298 QTc: 441 Interpretive Statements Atrial fibrillation with rapid ventricular response Electronically Signed On 04-01-2025 10:48:13 PDT by Volodymyr Gilmore MD
--- NOTE | 2025-04-01 09:55 | DI.RAD.S_ITS ---
PROCEDURE: XR CHEST 1V INDICATIONS: Shortness of breath TECHNIQUE: One view of the chest was acquired. COMPARISON: [facility], CR, XR CHEST 1V, 03/29/2025, 17:51. FINDINGS: Surgical changes and devices: Bilateral shoulder arthroplasty hardware can be seen. Left upper quadrant postoperative change can be seen. Lungs and pleura: There is blunting of the left costophrenic angle. The right lung appears clear. No pneumothorax. Mediastinum: Mediastinal contours appear normal. Heart size is normal. Atherosclerotic calcification of the aortic arch is noted. Bones and chest wall: No suspicious bony lesions. Age-appropriate bony degenerative changes are seen. Overlying soft tissues appear unremarkable. IMPRESSION: Blunting of the left costophrenic angle is seen, likely related to pleural effusion with atelectasis. Differential diagnosis includes focal infiltrate, however. Postoperative and degenerative changes are seen. Dictated by: Harpal Godinez M.D. on 04/01/2025 at 9:36 Approved by: Harpal Godinez M.D. on 04/01/2025 at 9:37
--- NOTE | 2025-04-01 09:59 | ED.SOB ---
HPI - SOB/Dyspnea General Chief Complaint: Shortness of Breath/Dyspnea Stated Complaint: Pleuritic CP/dx pleurisy t-2 Time Seen by Provider: 04/01/25 09:44 History of Present Illness HPI Narrative: 79-year-old female history of paroxysmal atrial fibrillation not on any AV jossy blocking agents or anticoagulants, blood pressure, diabetes, dyslipidemia, seen 2 days ago for pleuritic chest pain that resolved on its own presents this morning with lightheaded dizziness palpitations and being in atrial fibrillation again today with 90% room air on O2 on arrival. Other than what is stated 14 point review of system is negative. Related Data Home Medications ?Medication ?Instructions ?Recorded ?Confirmed cholecalciferol (vitamin D3) 125 125 mcg PO DAILY ##0 03/12/17 06/28/24 mcg (5,000 unit) capsule omega 2-ait-zbd-fish oil 1,000 mg 1 cap PO DAILY ##0 03/12/17 06/28/24 (120 mg-180 mg) capsule (Fish Oil) albuterol sulfate 90 mcg/actuation 2 puff inhalation 6XD PRN SOB 04/21/24 06/28/24 aerosol inhaler atorvastatin 40 mg tablet 40 mg PO QPM 04/21/24 06/28/24 hydrochlorothiazide 12.5 mg tablet 12.5 mg PO QAM 04/21/24 06/28/24 losartan 25 mg tablet 25 mg PO DAILY 04/21/24 06/28/24 metformin 1,000 mg tablet 1,000 mg PO BID 04/21/24 06/28/24 Adult One Daily Multivitamin 1 cap PO DAILY 06/28/24 06/30/24 calcium-magnesium 750 mg-465 mg 1 tab PO DAILY 06/28/24 06/30/24 tablet sennosides 8.6 mg tablet (senna) 17.2 mg PO BEDTIME PRN Constipation 06/28/24 06/28/24 Previous Rx's ?Medication ?Instructions ?Recorded acetaminophen 325 mg tablet 650 mg (2 x 325 mg) PO Q6H PRN 04/25/24 Fever/Mild Pain (1-3) #240 tabs bisacodyl 10 mg rectal suppository 10 mg [place] PRN PRN Constipation #30 04/25/24 ea docusate sodium 100 mg capsule 100 mg PO BID PRN constipation #60 04/25/24 caps ondansetron 4 mg disintegrating 4 mg PO Q4HR PRN Nausea And 04/25/24 tablet Vomiting #30 tabs magnesium chloride 64 mg 64 mg PO BEDTIME #30 tabs 07/01/24 (magnesium chloride) tablet,delayed release rivaroxaban 10 mg tablet (Xarelto) 10 mg PO DAILY #30 tabs 07/01/24 Allergies Allergy/AdvReac Type Severity Reaction Status Date / Time latex Allergy Mild ITCHING Verified 04/22/24 09:00 AND REDNESS oxycodone AdvReac Intermediate Nausea Verified 04/22/24 09:00 Review of Systems Review of Systems ROS Unobtainable: All systems reviewed & are unremarkable except as noted in HPI and below Patient History Medical History Scoliosis Gout Humerus fracture (04/01/24) Basal cell adenocarcinoma DVT (deep venous thrombosis) (~02/2023) SVT (supraventricular tachycardia) HLD (hyperlipidemia) COPD (chronic obstructive pulmonary disease) Osteoarthritis Chronic airway obstruction Rosacea Diabetes HTN (hypertension) Surgical History Hx of total knee arthroplasty (02/2023) H/O total hip arthroplasty H/O: hysterectomy History of gastric stapling Social History household members: none alcohol intake: current alcohol intake frequency: a few times a month Exam Narrative Exam Narrative: GENERAL: [81] year old patient appears stated age. Well-developed patient, in mild distress. HEAD: Atraumatic. Normocephalic. EYES: Pupils equal round and reactive. Extraocular motions intact. No scleral icterus. No injection or drainage. ENT: Nose without bleeding, purulent drainage. Throat without erythema, tonsillar hypertrophy or exudate. Airway patent. NECK: Trachea midline. Non tender CARDIOVASCULAR: Tachycardic irregularly irregular rate and rhythm without murmurs, gallops, or rubs. RESPIRATORY: Clear to auscultation. Breath sounds equal bilaterally. No wheezes, rales, or rhonchi. GASTROINTESTINAL: Abdomen soft, non-tender, nondistended. EXTREMITIES: No edema or joint tenderness. BACK: Nontender without deformity or crepitance. No flank tenderness. NEURO: AOx3. SKIN: No rash or erythema of visible areas Initial Vital Signs Initial Vital Signs: Vital Signs Pulse Rate 134 H 04/01/25 09:45 Respiratory Rate 25 H 04/01/25 09:45 Pulse Oximetry 96 04/01/25 09:45 Scores HEART Score Heart Score history: Moderately Suspicious Heart Score EKG: Non-Specific repolarization disturbance Heart Score Age: > or = 65 years old Heart Score risk factors: > 3 risk factors or hx of atherosclerotic disease Heart Score troponin: < or = to normal limit Heart Score Total: 6 Course Orders Ordered: ED Orders 04/01/25 09:55 XR chest 1V Stat EKG-12 Lead Stat Measure peak expiratory flow STAT RT Consult Eval and Treat STAT 04/01/25 10:06 Complete Blood Count AUTO DIFF Stat Comprehensive Metabolic Panel Stat Lactate (Lactic Acid) Stat NT-proBNP (BNP-Adult 18+) Stat Prothrombin Time INR Stat Troponin I Stat 04/01/25 10:11 Venous Blood Gas STAT 04/01/25 10:30 Venous Blood Gas Routine Discontinued Medications Albuterol/Ipratropium (Albuterol/Ipratropium 3 Ml Ampul) 3 ml INH NOW ONE Stop: 04/01/25 10:12 Last Admin: 04/01/25 10:24 Dose: 3 ml Documented By: QUINCY Diltiazem HCl (Diltiazem 25 Mg/5 Ml Sdv) 25 mg IV NOW ONE Stop: 04/01/25 10:08 Last Admin: 04/01/25 10:25 Dose: 25 mg Documented By: JIMMY Morphine Sulfate (Morphine 4 Mg/Ml Inj) 4 mg IV NOW ONE Stop: 04/01/25 10:09 Last Admin: 04/01/25 10:19 Dose: 4 mg Documented By: JIMMY Vital Signs Vital signs: Vital Signs - 8 hr 04/01/25 09:45 04/01/25 09:50 04/01/25 10:00 Temperature 98.7 F Pulse Rate 134 H 140 H 136 H Respiratory Rate 25 H 26 H 34 H Blood Pressure 134/71 Pulse Oximetry 96 90 L 98 Oxygen Delivery Method Room Air Oxygen Flow Rate 04/01/25 10:01 04/01/25 10:01 04/01/25 10:25 Temperature Pulse Rate 135 H 140 H Respiratory Rate 39 H Blood Pressure 117/63 125/59 L Pulse Oximetry 98 Oxygen Delivery Method Oxygen Flow Rate 04/01/25 10:26 04/01/25 10:26 04/01/25 10:30 Temperature Pulse Rate 139 H 123 H Respiratory Rate 37 H 37 H Blood Pressure 125/59 L Pulse Oximetry 98 96 Oxygen Delivery Method Room Air Oxygen Flow Rate 04/01/25 10:30 04/01/25 10:34 04/01/25 11:01 Temperature Pulse Rate 128 H 113 H Respiratory Rate 34 H Blood Pressure 129/60 Pulse Oximetry 93 97 Oxygen Delivery Method Nasal Cannula Oxygen Flow Rate 3 04/01/25 11:05 04/01/25 11:05 04/01/25 11:15 Temperature Pulse Rate 135 H 116 H Respiratory Rate 39 H 40 H Blood Pressure 131/69 Pulse Oximetry 95 94 Oxygen Delivery Method Oxygen Flow Rate 04/01/25 11:15 04/01/25 11:30 04/01/25 11:30 Temperature Pulse Rate 123 H Respiratory Rate 35 H Blood Pressure 122/54 L 117/55 L Pulse Oximetry 94 Oxygen Delivery Method Oxygen Flow Rate MDM - SOB/Dyspnea Lab Data 04/01/25 10:06 04/01/25 10:06 Labs: Lab Results 04/01/25 04/01/25 Range/Units 10:06 10:30 WBC 16.0 H (4.5-11.0) X10^3/uL RBC 3.75 L (4.0-5.2) X10^6/uL Hgb 11.0 L (12.0-16.0) g/dL Hct 32.9 L (36-46) % MCV 87.7 (80-100) fL MCH 29.3 (26-34) PG MCHC 33.4 (30-36) % RDW 15.6 H (11.6-14.8) % Plt Count 345 (150-400) X10^3/uL Neut % (Auto) Not Reportable Lymph % (Auto) Not Reportable [place] % (Auto) Not Reportable Eos % (Auto) Not Reportable Baso % (Auto) Not Reportable Lymph # (Auto) Not Reportable [place] # (Auto) Not Reportable Baso # (Auto) Not Reportable Total Counted 100 Seg Neutrophils % 87.0 H (38-70) % Band Neutrophils % 5.0 (3-7) % Lymphocytes % (Manual) 4.0 L (25-45) % Monocytes % (Manual) 4.0 (2-11) % Neutrophils # (Manual) 40579 H (4358-0128) /uL Platelet Estimate Adequate on smear RBC Morphology Normal morphology PT 12.2 (9.4-12.5) SECONDS INR 1.1 (0.9-1.3) VBG pH 7.30 L (7.33-7.43) VBG pCO2 44.4 L (45-50) mmHg VBG pO2 37 (35-45) mmHg VBG HCO3 22 L (24-28) mmol/L VBG Total CO2 21 L (24-29) mmol/L VBG O2 Saturation 65 L (70-75) % VBG Base Excess -4.6 L (0-4) mmol/L Sodium 132 L (137-145) mmol/L Potassium 4.7 (3.4-5.1) mmol/L Chloride 99 (98-107) mmol/L Carbon Dioxide 17 L (22-32) mmol/L BUN 67 H (7-17) mg/dL Creatinine 2.04 H (0.52-1.04) mg/dL Estimated GFR 24 L (>60) mL/min BUN/Creatinine Ratio 32.8 H (6-22) Glucose 253 H (70-99) mg/dL Lactate 1.4 (0.7-2.1) mmol/L Calcium 9.6 (8.4-10.2) mg/dL Total Bilirubin 0.8 (0.2-1.3) mg/dL AST 36 (14-36) IU/L ALT 26 (<35) IU/L Alkaline Phosphatase 105 (38-126) U/L Troponin I < 0.012 (0.01-0.034) ng/mL NT-Pro-B Natriuret Pep 2150 H (<450) pg/mL Total Protein 7.1 (6.3-8.2) g/dL Albumin 3.8 (3.5-5.0) g/dL Globulin 3.3 (1.7-4.1) g/dL Albumin/Globulin Ratio 1.2 (1.0-2.8) Imaging Data CT scan - chest: Radiologist's Impression: [address] [address] [address] Scan Report Signed Patient: Sherin Carias MR#: [id number] : 1945 Acct:[id number] Age/Sex: 79 / F Date of Service: 04/01/25 Loc: ED Accession Number: [id number] Procedure: CT chest wo con Ordering Provider: Volodymyr Ivy D.O. PROCEDURE: CT CHEST WO CON INDICATIONS: CHEST PAIN RADIATING TO BACK TECHNIQUE: Noncontrast 5 mm thick sections acquired from the pulmonary apices to the posterior costophrenic angles. 1 mm lung window, 5 mm thick coronal and sagittal and 7 mm axial MIP reformats were then acquired. For radiation dose reduction, the following was used: automated exposure control, adjustment of mA and/or kV according to patient size. COMPARISON: [facility], CR, XR CHEST 1V, 04/01/2025, 9:54. FINDINGS: Image quality: There is artifact associated with the metallic hardware. Artifact from the metallic hardware is reduced by metal reconstruction algorithm. Limited by lack of IV contrast. Lower Neck: No enlarged lymph nodes. Thyroid: There is a 3 cm right thyroid nodule seen, with calcification. Axillae: No enlarged lymph nodes. Chest Wall: Unremarkable. Bones: Bilateral shoulder arthroplasty hardware can be seen, with associated streak artifact. Age-appropriate bony degenerative changes are seen. Mild dextroconvex scoliotic curvature is seen. Lungs and Pleura: Dense infiltrate can be seen involving the dependent left lower lobe, with air bronchograms. There is a small left-sided pleural effusion. The right lung appears clear. No pneumothorax. Heart: Heart size is normal. No pericardial effusion. Thoracic Vessels: The aorta and pulmonary arteries demonstrate normal size. Atherosclerotic calcification is noted. Mediastinum and [place]: No enlarged lymph nodes. Esophagus: No wall thickening. No hiatal hernia. Upper Abdomen: Gastric postoperative changes are seen. The visualized portions of the upper abdominal structures are otherwise unremarkable for imaging technique. IMPRESSION: Dense left lower lobe infiltrate can be seen. Small left-sided pleural effusion. 3 cm right thyroid nodule. When clinically appropriate, a follow-up thyroid ultrasound is recommended for further evaluation. Atherosclerotic calcification of the aorta, yet without a dasia acute abnormality, to the limits of this noncontrast study. Additional findings: Bilateral shoulder arthroplasty hardware Gastric postoperative change Dictated by: Harpal Godinez M.D. on 04/01/2025 at 10:34 Approved by: Harpal Godinez M.D. on 04/01/2025 at 10:37 Chest x-ray: Radiologist's Impression: [address] [id number] XRay Report Signed Patient: Sherin Carias MR#: [id number] : 1945 Acct:[id number] Age/Sex: 79 / F Date of Service: 04/01/25 Loc: ED Accession Number: [id number] Procedure: XR chest 1V Ordering Provider: Vloodymyr Ivy D.O. PROCEDURE: XR CHEST 1V INDICATIONS: Shortness of breath TECHNIQUE: One view of the chest was acquired. COMPARISON: [facility], [place], XR CHEST 1V, 03/29/2025, 17:51. FINDINGS: Surgical changes and devices: Bilateral shoulder arthroplasty hardware can be seen. Left upper quadrant postoperative change can be seen. Lungs and pleura: There is blunting of the left costophrenic angle. The right lung appears clear. No pneumothorax. Mediastinum: Mediastinal contours appear normal. Heart size is normal. Atherosclerotic calcification of the aortic arch is noted. Bones and chest wall: No suspicious bony lesions. Age-appropriate bony degenerative changes are seen. Overlying soft tissues appear unremarkable. IMPRESSION: Blunting of the left costophrenic angle is seen, likely related to pleural effusion with atelectasis. Differential diagnosis includes focal infiltrate, however. Postoperative and degenerative changes are seen. ECG Data Interpretation: AFib RVR HR 132 AZ undetermined QRS 78 QT 298 Unchanged from 03/29/25 MDM Narrative Medical decision making narrative: All lab work, vital signs, nurse triage note, medication list, previous ER visits, and all imaging studies reviewed. CT chest showed dense left lower lobe infiltrate can be seen small left-sided pleural effusion right 3 cm thyroid nodule atherosclerosis calcified aorta without dasia acute abnormality. Patient given Rocephin, Zithromax, Lasix 40mg IV, morphine, and diltiazem 25mg IV and drip here. WBC 16 hemoglobin 11 platelet 345 VBG pH 7.3 pCO2 44.4 bicarb 22 CO2 21 a success -4.6 sodium 132 potassium 4.7 chloride 99 CO2 17 BUN 67 creatinine 2.04 glucose 253 troponin normal BNP 2150. Case discussed with who has graciously accepted the patient for inpatient admission. Discharge Plan Departure Patient Disposition: Admitted As Inpatient Clinical Impression: Atrial fibrillation with rapid ventricular response Pneumonia Qualifiers: Pneumonia type: due to unspecified organism Laterality: left Lung location: lower lobe of lung Qualified Code(s): J18.9 - Pneumonia, unspecified organism Admit Date/Time: 04/01/25 12:34 Admit Provider: Rebel Watkins
[2025-04-01] MEDS: MORPHINE 4 MG/ML INJ IV ×2 (10:19→12:32)
[2025-04-01 10:23] LABS: INR 1.1 (0.9-1.3); Prothrombin Time 12.2 SECONDS (9.4-12.5)
[2025-04-01] MEDS: ALBUTEROL/IPRATROPIUM 3 ML AMPUL INH (10:24)
[2025-04-01 10:26] LABS: Hematocrit 32.9 % (36-46); Hemoglobin 11.0 g/dL (12.0-16.0); Mean Corpuscular HGB Conc 33.4 % (30-36); Mean Corpuscular Hemoglobin 29.3 PG (26-34); Mean Corpuscular Volume 87.7 fL (80-100); Platelet Count 345 X10^3/uL (150-400)
[2025-04-01 10:28] LABS: Alanine Aminotransferase 26 IU/L (<35); Albumin 3.8 g/dL (3.5-5.0); Albumin Globulin Ratio 1.2 (1.0-2.8); Alkaline Phosphatase 105 U/L (38-126); Blood Urea Nitrogen 67 mg/dL (7-17); Calcium 9.6 mg/dL (8.4-10.2); Carbon Dioxide 17 mmol/L (22-32); Chloride 99 mmol/L (98-107); Estimated Glomerular Filt Rate 24 mL/min (>60); Globulin 3.3 g/dL (1.7-4.1); Glucose 253 mg/dL (70-99); Lactate (Lactic Acid) 1.4 mmol/L (0.7-2.1); Potassium 4.7 mmol/L (3.4-5.1); Sodium 132 mmol/L (137-145); Total Protein 7.1 g/dL (6.3-8.2)
[2025-04-01 10:32] LABS: HEMOLYSIS 135 (0-50)
[2025-04-01 10:33] LABS: Base Excess VBG -4.6 mmol/L (0-4); HCO3 VBG 22 mmol/L (24-28); Oxygen Saturation VBG 65 % (70-75); PCO2 VBG 44.4 mmHg (45-50); PO2 VBG 37 mmHg (35-45); Total CO2 VBG 21 mmol/L (24-29); pH VBG 7.30 (7.33-7.43)
[2025-04-01 10:39] LABS: NT-proBNP (BNP-Adult 18+) 2150 pg/mL (<450); Troponin I < 0.012 ng/mL (0.01-0.034)
[2025-04-01 10:48] LABS: Add Manual Diff / Slide Review YES
[2025-04-01 10:55] LABS: Band Neutrophils Percent 5.0 % (3-7); Lymphocytes Percent Manual 4.0 % (25-45); Monocytes Percent Manual 4.0 % (2-11); Neutrophils Absolute Manual 14720 /uL (3000-5900); Segmented Neutrophils Percent 87.0 % (38-70); Total Cells Counted 100
[2025-04-01 10:56] LABS: RBC Morphology Normal Morphology
--- NOTE | 2025-04-01 11:09 | RT ---
pt magdalena neb tx well, o2 decreased to 2lpmnc sao2@93%. family at bedside.Pt statesshesmoked 40 = years a pk a day.No rqosu0aea takes Alb MDI prn
[2025-04-01] MEDS: FUROSEMIDE 40 MG/4 ML VIAL IV (12:29)
[2025-04-01 13:15] LABS: Lactate (Lactic Acid) 1.9 mmol/L (0.7-2.1)
[2025-04-01 13:26] LABS: Troponin I < 0.012 ng/mL (0.01-0.034)
--- NOTE | 2025-04-01 13:52 | P.HP_ITS ---
History of Present Illness History of Present Illness Date Patient Seen: 04/01/25 Chief complaint: Pleuritic CP/dx pleurisy t-2 Narrative: Chief complaint: Pleuritic chest pain secondary to dense pneumonia with precipitant atrial fibrillation rapid ventricular response History of present illness: 04/01: 79-year-old with PAF and chronic DVT on Xarelto was seen in the emergency room 2 nights ago discharged home with presumed treatment for pleuritic chest pain did not seem to be infectious returned today. Findings significant for very dense left lower lobe pneumonia on CT which is retrocardiac and very unimpressive on chest x-ray with small pleural effusion and paroxysmal atrial fibrillation with rapid ventricular response. Patient admitted for pneumonia and probable precipitation of atrial fibrillation secondary to cardiotoxicity from pneumonia Past medical medical history: Scoliosis Gout Humerus fracture (04/01/24) Basal cell adenocarcinoma DVT (deep venous thrombosis) (~02/2023) SVT (supraventricular tachycardia) HLD (hyperlipidemia) COPD (chronic obstructive pulmonary disease) Osteoarthritis Chronic airway obstruction Rosacea Diabetes HTN (hypertension) Review of systems: Patient is having fever and diminished appetite with cough but nonproductive Pleuritic chest pain which is worse with breathing and movement Diminished appetite but no vomiting no diarrhea No urinary symptom Physical exam: Elderly female appearing mildly ill HEENT unremarkable Neck no JVD Heart irregularly irregular rhythm Lungs clear except left base with diminished sound transmission Abdominal not distended not tender Extremities no edema Neurologic nonfocal Assessment and plan: Dense community-acquired left lower lobe pneumonia possibly aspiration * placed on ceftriaxone azithromycin * May need prolonged IV course of ceftriaxone due to have densely infiltrated Paroxysmal atrial fibrillation rapid ventricular response likely secondary to cardiotoxicity from pneumonia * Started on IV diltiazem but converted to sinus rhythm and started on oral diltiazem Chronic medical conditions: * Scoliosis * Gout * Humerus fracture (04/01/24) * Basal cell adenocarcinoma * DVT (deep venous thrombosis) (~02/2023) * SVT (supraventricular tachycardia) * HLD (hyperlipidemia) * COPD (chronic obstructive pulmonary disease) * Osteoarthritis * Chronic airway obstruction * Rosacea * Diabetes * HTN (hypertension) DVT prophylaxis * covered with anticoagulation Code status: Full code blue Disposition: * Inpatient anticipate 3 days of hospitalization after which we will decide continue treatment we will need to be Time based billin minutes were involved in the evaluation of this patient including direct patient evaluation in-person physical examination of the patient review of imaging as well as objective laboratory findings and discussion with emergency provider and treating team in the intensive care unit [facility] Medical History Scoliosis Gout Humerus fracture (04/01/24) Basal cell adenocarcinoma DVT (deep venous thrombosis) (~02/2023) SVT (supraventricular tachycardia) HLD (hyperlipidemia) COPD (chronic obstructive pulmonary disease) Osteoarthritis Chronic airway obstruction Rosacea Diabetes HTN (hypertension) Surgical History Hx of total knee arthroplasty (02/2023) H/O total hip arthroplasty H/O: hysterectomy History of gastric stapling Social History household members: none Smoking Status: Former smoker alcohol intake: current Meds Home Medications and Allergies Home Medications ?Medication ?Instructions ?Recorded ?Confirmed ?Type cholecalciferol (vitamin D3) 125 125 mcg PO DAILY ##0 03/12/17 04/01/25 History mcg (5,000 unit) capsule omega 7-gxs-wiz-fish oil 1,000 mg 1 cap PO DAILY ##0 0 03/12/17 04/01/25 History (120 mg-180 mg) capsule (Fish Oil) albuterol sulfate 90 mcg/actuation 2 puff inhalation 6 XD PRN SOB 04/21/24 04/01/25 History aerosol inhaler atorvastatin 40 mg tablet 40 mg PO QPM 04/21/24 History hydrochlorothiazide 12.5 mg tablet 12.5 mg PO QAM 04/0504/01/25 History losartan 25 mg tablet 25 mg PO DAILY 04/21/2403/07 History metformin 1,000 mg tablet 500 mg PO BID 04/21/2404/01 History acetaminophen 325 mg tablet 650 mg (2 x 325 mg) PO Q6H PRN 04/25/24 04/01/25 Rx Fever/Mild Pain (1-3) #240 tabs docusate sodium 100 mg capsule 100 mg PO BID PRN const ipation #60 04/25/24 04/01/25 Rx caps Adult One Daily Multivitamin 1 cap PO DAILY 06/28/24 0 04/01/25 History calcium-magnesium 750 mg-465 mg 1 tab PO DAILY 4 04/01/25 History tablet sennosides 8.6 mg tablet (senna) 17.2 mg PO BEDTIME AL N Constipation 06/28/24 04/01/25 History magnesium chloride 64 mg 64 mg PO BEDTIME #30 tabs 04/01/25 Rx (magnesium chloride) tablet,delayed release glimepiride 2 mg tablet 2 mg PO QAM 04/01/25 5 History Allergies Allergy/AdvReac Type Severity Reaction Status Date / Time latex Allergy Mild ITCHING Verified 04/01/25 13:56 AND REDNESS oxycodone AdvReac Intermediate Nausea Verified 04/01/25 13:56 Exam Vital Signs (past 8 hours): - 04/01/25 09:45 04/01/25 09:50 04/01/25 10:00 Temperature 98.7 F Pulse Rate 134 H 140 H 136 H Respiratory Rate 25 H 26 H 34 H Blood Pressure 134/71 Pulse Oximetry 96 90 L 98 Oxygen Delivery Method Room Air Oxygen Flow Rate 04/01/25 10:01 04/01/25 10:01 04/01/25 10:25 Temperature Pulse Rate 135 H 140 H Respiratory Rate 39 H Blood Pressure 117/63 125/59 L Pulse Oximetry 98 Oxygen Delivery Method Oxygen Flow Rate 04/01/25 10:26 04/01/25 10:26 04/01/25 10:30 Temperature Pulse Rate 139 H 123 H Respiratory Rate 37 H 37 H Blood Pressure 125/59 L Pulse Oximetry 98 96 Oxygen Delivery Method Room Air Oxygen Flow Rate 04/01/25 10:30 04/01/25 10:34 04/01/25 11:01 Temperature Pulse Rate 128 H 113 H Respiratory Rate 34 H Blood Pressure 129/60 Pulse Oximetry 93 97 Oxygen Delivery Method Nasal Cannula Oxygen Flow Rate 3 04/01/25 11:05 04/01/25 11:05 04/01/25 11:15 Temperature Pulse Rate 135 H 116 H Respiratory Rate 39 H 40 H Blood Pressure 131/69 Pulse Oximetry 95 94 Oxygen Delivery Method Oxygen Flow Rate 04/01/25 11:15 04/01/25 11:30 04/01/25 11:30 Temperature Pulse Rate 123 H Respiratory Rate 35 H Blood Pressure 122/54 L 117/55 L Pulse Oximetry 94 Oxygen Delivery Method Oxygen Flow Rate 04/01/25 11:45 04/01/25 11:45 04/01/25 12:00 Temperature Pulse Rate 126 H Respiratory Rate 31 H Blood Pressure 126/57 L 111/52 L Pulse Oximetry 94 Oxygen Delivery Method Oxygen Flow Rate 04/01/25 12:00 04/01/25 12:30 04/01/25 12:41 Temperature Pulse Rate 122 H 129 H Respiratory Rate 29 H 30 H Blood Pressure 125/57 L Pulse Oximetry 94 95 Oxygen Delivery Method Nasal Cannula Oxygen Flow Rate 2 04/01/25 12:41 04/01/25 13:00 Temperature Pulse Rate 135 H 133 H Respiratory Rate Blood Pressure Pulse Oximetry 95 93 Oxygen Delivery Method Nasal Cannula Oxygen Flow Rate 2 Oxygen Delivery Method Nasal Cannula Oxygen Flow Rate 2 Objective Labs 04/01/25 10:06 04/01/25 10:06 Labs: Laboratory Results - last 24 hr 04/01/25 04/01/25 04/01/25 10:06 10:30 12:54 WBC 16.0 H RBC 3.75 L Hgb 11.0 L Hct 32.9 L MCV 87.7 MCH 29.3 MCHC 33.4 RDW 15.6 H Plt Count 345 Neut % (Auto) Not Reportable Lymph % (Auto) Not Reportable [place] % (Auto) Not Reportable Eos % (Auto) Not Reportable Baso % (Auto) Not Reportable Lymph # (Auto) Not Reportable [place] # (Auto) Not Reportable Baso # (Auto) Not Reportable Total Counted 100 Seg Neutrophils % 87.0 H Band Neutrophils % 5.0 Lymphocytes % (Manual) 4.0 L Monocytes % (Manual) 4.0 Neutrophils # (Manual) 04533 H Platelet Estimate Adequate on smear RBC Morphology Normal morphology PT 12.2 INR 1.1 VBG pH 7.30 L VBG pCO2 44.4 L VBG pO2 37 VBG HCO3 22 L VBG Total CO2 21 L VBG O2 Saturation 65 L VBG Base Excess -4.6 L Sodium 132 L Potassium 4.7 Chloride 99 Carbon Dioxide 17 L BUN 67 H Creatinine 2.04 H Estimated GFR 24 L BUN/Creatinine Ratio 32.8 H Glucose 253 H Lactate 1.4 1.9 Calcium 9.6 Total Bilirubin 0.8 AST 36 ALT 26 Alkaline Phosphatase 105 Troponin I < 0.012 < 0.012 NT-Pro-B Natriuret Pep 2150 H Total Protein 7.1 Albumin 3.8 Globulin 3.3 Albumin/Globulin Ratio 1.2 Assessment & Plan Time-Based Coding :: [TOTAL MINUTES] spent with patient and on the chart (including review of chart, obtaining history, exam, reviewing outside data, placing orders, documenting exam and treatment plan, and counseling patient) on [DATE].
--- NOTE | 2025-04-01 14:05 | PC.ADMIT ---
[email or web address] Admission Note: Pt arrived via gurney, Dilt gtt infusing as ordered, unable move without assistance from gurney to bed, slid onto bed via slide board, connected to all monitoring equipment. HR in 120's, 2L NC sats 98% drops to 91% on RA. Pt c/o of thirst, waiting on orders for meds and diet. Oriented to room and call light system,call light within reach, able to make needs known, care ongoing. The patient,Sherin Carias,79 y/o, was given written information regarding hospital policies, unit procedures and contact persons. Patient's smoking status: . Vital Signs - 8 hr 04/01/25 09:45 04/01/25 09:50 04/01/25 10:00 Temperature 98.7 F Pulse Rate 134 H 140 H 136 H Respiratory Rate 25 H 26 H 34 H Blood Pressure 134/71 Pulse Oximetry 96 90 L 98 Oxygen Delivery Method Room Air Oxygen Flow Rate 04/01/25 10:01 04/01/25 10:01 04/01/25 10:25 Temperature Pulse Rate 135 H 140 H Respiratory Rate 39 H Blood Pressure 117/63 125/59 L Pulse Oximetry 98 Oxygen Delivery Method Oxygen Flow Rate 04/01/25 10:26 04/01/25 10:26 04/01/25 10:30 Temperature Pulse Rate 139 H 123 H Respiratory Rate 37 H 37 H Blood Pressure 125/59 L Pulse Oximetry 98 96 Oxygen Delivery Method Room Air Oxygen Flow Rate 04/01/25 10:30 04/01/25 10:34 04/01/25 11:01 Temperature Pulse Rate 128 H 113 H Respiratory Rate 34 H Blood Pressure 129/60 Pulse Oximetry 93 97 Oxygen Delivery Method Nasal Cannula Oxygen Flow Rate 3 04/01/25 11:05 04/01/25 11:05 04/01/25 11:15 Temperature Pulse Rate 135 H 116 H Respiratory Rate 39 H 40 H Blood Pressure 131/69 Pulse Oximetry 95 94 Oxygen Delivery Method Oxygen Flow Rate 04/01/25 11:15 04/01/25 11:30 04/01/25 11:30 Temperature Pulse Rate 123 H Respiratory Rate 35 H Blood Pressure 122/54 L 117/55 L Pulse Oximetry 94 Oxygen Delivery Method Oxygen Flow Rate 04/01/25 11:45 04/01/25 11:45 04/01/25 12:00 Temperature Pulse Rate 126 H Respiratory Rate 31 H Blood Pressure 126/57 L 111/52 L Pulse Oximetry 94 Oxygen Delivery Method Oxygen Flow Rate 04/01/25 12:00 04/01/25 12:30 04/01/25 12:41 Temperature Pulse Rate 122 H 129 H Respiratory Rate 29 H 30 H Blood Pressure 125/57 L Pulse Oximetry 94 95 Oxygen Delivery Method Nasal Cannula Oxygen Flow Rate 2 04/01/25 12:41 04/01/25 13:00 04/01/25 13:29 Temperature Pulse Rate 135 H 133 H 131 H Respiratory Rate 31 H Blood Pressure Pulse Oximetry 95 93 96 Oxygen Delivery Method Nasal Cannula Oxygen Flow Rate 2 04/01/25 13:29 04/01/25 13:30 04/01/25 13:30 Temperature Pulse Rate 130 H Respiratory Rate 30 H Blood Pressure 127/61 134/63 Pulse Oximetry 96 Oxygen Delivery Method Oxygen Flow Rate 04/01/25 13:39 04/01/25 13:42 04/01/25 13:52 Temperature Pulse Rate 124 H 131 H Respiratory Rate 32 H 35 H Blood Pressure 135/62 Pulse Oximetry 96 Oxygen Delivery Method Nasal Cannula Oxygen Flow Rate 2 04/01/25 13:52 04/01/25 14:00 04/01/25 14:00 Temperature Pulse Rate 123 H Respiratory Rate 31 H Blood Pressure 131/75 118/58 L Pulse Oximetry 98 Oxygen Delivery Method Oxygen Flow Rate
--- NOTE | 2025-04-01 15:32 | PC.NURSE ---
1520 Pt converted from AFIB RVR to NSR HR 82, notified provider Dr Watkins, will bridge with 120mg Diltazem CD before turning off Dilt gtt. No further needs at this time, care ongoing
[2025-04-01 15:49] LABS: MRSA (Nasal) PCR NOT DETECTED (Not Detect)
[2025-04-01] MEDS: AZITHROMYCIN 500 MG in DEXTROSE 5% IN WATER 250 ML 250 MG IV (17:00)
[2025-04-01] MEDS: ATORVASTATIN 20 MG TABLET 40 MG PO (17:00)
[2025-04-01] MEDS: SODIUM CHLORIDE 0.9% FLUSH 10 ML IV (20:29)
[2025-04-01] MEDS: MAGNESIUM CHLORIDE 64 MG TABLET PO (20:29)
[2025-04-01] MEDS: APIXABAN 5 MG TABLET 2.5 MG PO (20:29)
[2025-04-02] VITALS (59 sets, daily range): BP systolic 100–132; BP diastolic 52–62; PULSE 69–109; RESP 15–40; TEMP 36.5–37.1; O2SAT 84–100
[2025-04-02 01:23] LABS: Acinetobacter calcoa-baumannii Not Detected (Not Detect); Bacteroides fragilis Not Detected (Not Detect); Candida auris Not Detected (Not Detect); Candida glabrata Not Detected (Not Detect); Cryptococcus neoformans/gatti Not Detected (Not Detect); Enterobacterales Not Detected (Not Detect); Enterococcus faecalis Not Detected (Not Detect); Enterococcus faecium Not Detected (Not Detect); Klebsiella aerogenes Not Detected (Not Detect); Proteus species Not Detected (Not Detect); Serratia marcescens Not Detected (Not Detect); Staphylococcus epidermidis Not Detected (Not Detect); Staphylococcus lugdunensis Not Detected (Not Detect); Staphylococcus species Not Detected (Not Detect); Stenotrophomonas maltophilia Not Detected (Not Detect); Streptococcus agalactiae (Gr B Not Detected (Not Detect); Streptococcus pneumonia Detected (Not Detect); Streptococcus pyogenes (Gr A) Not Detected (Not Detect); Streptococcus species Detected (Not Detect)
[2025-04-02] MEDS: ALBUTEROL 2.5 MG/3 ML NEB (ADULT) INH (05:42)
--- NOTE | 2025-04-02 06:34 | PC.NURSE ---
Auction Assistant Note-Patient remains in NSR, VSS, on 1-2L NC intermittently while asleep, desats to < 90%, occasional cough, [place] given for pain to left ribs. Up to BSC with 1 person assist, has some shortness of breath and activity intolerance. Neb tx given.
[2025-04-02 06:42] LABS: Add Manual Diff / Slide Review NO; Hematocrit 30.0 % (36-46); Hemoglobin 10.1 g/dL (12.0-16.0); Lymphocytes Absolute Auto 2000 /uL (1100-4500); Mean Corpuscular HGB Conc 33.7 % (30-36); Mean Corpuscular Hemoglobin 29.3 PG (26-34); Mean Corpuscular Volume 87.1 fL (80-100); Platelet Count 331 X10^3/uL (150-400)
[2025-04-02 06:54] LABS: Blood Urea Nitrogen 72 mg/dL (7-17); Calcium 9.4 mg/dL (8.4-10.2); Carbon Dioxide 22 mmol/L (22-32); Chloride 96 mmol/L (98-107); Estimated Glomerular Filt Rate 28 mL/min (>60); Glucose 302 mg/dL (70-99); HEMOLYSIS 23 (0-50); Potassium 3.9 mmol/L (3.4-5.1); Sodium 130 mmol/L (137-145)
[2025-04-02] MEDS: FISH OIL 1,000 MG CAPSULE 1000 MG PO (08:33)
[2025-04-02] MEDS: CHOLECALCIFEROL (VITAMIN D3) 5,000 UNIT TABLET 5000 UNIT PO (08:33)
[2025-04-02] MEDS: MULTIVITAMIN 1 TABLET 1 TAB PO (08:33)
[2025-04-02] MEDS: LOSARTAN 25 MG TABLET PO (08:33)
[2025-04-02] MEDS: APIXABAN 5 MG TABLET 2.5 MG PO ×2 (08:34→20:51)
[2025-04-02] MEDS: SODIUM CHLORIDE 0.9% FLUSH 10 ML IV ×2 (08:34→20:56)
[2025-04-02] MEDS: AZITHROMYCIN 500 MG in DEXTROSE 5% IN WATER 250 ML 250 MG IV (08:34)
[2025-04-02] MEDS: cefTRIAXone 2,000 MG in SODIUM CHLORIDE 0.9% 100 ML 200 MG IV (08:36)
[2025-04-02] MEDS: INSULIN LISPRO 100 UNIT/ML 3ML VIAL SUBCUT ×3 (11:28→20:52)
[2025-04-02 13:29] LABS: Hemoglobin A1C% w Est Avg Glu 7.4 % (4.0-6.0)
--- NOTE | 2025-04-02 14:17 | P.PN_ITS ---
Subjective Subjective Date Patient Seen: 04/02/25 Interval history: Chief complaint: Pleuritic chest pain secondary to dense pneumonia with precipitant atrial fibrillation rapid ventricular response Gram-positive cocci bacteremia History of present illness: 04/01: 79-year-old with PAF and chronic DVT on Xarelto was seen in the emergency room 2 nights ago discharged home with presumed treatment for pleuritic chest pain did not seem to be infectious returned today. Findings significant for very dense left lower lobe pneumonia on CT which is retrocardiac and very unimpressive on chest x-ray with small pleural effusion and paroxysmal atrial fibrillation with rapid ventricular response. Patient admitted for pneumonia and probable precipitation of atrial fibrillation secondary to cardiotoxicity from pneumonia Hospital course: 04/02: Patient has remained in sinus rhythm overnight 2/2 blood cultures positive for Gram-positive cocci patient is feeling better still having some blurred symptoms with his are improved no rigors overnight vital signs stable with good oxygenation patient reports 1 sick contact prior to coming in also pleuritic symptoms Review of systems: Patient is having fever and diminished appetite with cough but nonproductive Pleuritic chest pain which is worse with breathing and movement Diminished appetite but no vomiting no diarrhea No urinary symptom Physical exam: Elderly female appearing mildly ill HEENT unremarkable Neck no JVD Heart irregularly irregular rhythm Lungs clear except left base with diminished sound transmission Abdominal not distended not tender Extremities no edema Neurologic nonfocal Assessment and plan: Gram-positive bacteremia: * Escalate ceftriaxone to 2 g a day with azithromycin * Repeat blood cultures today * Suspect pneumonia as source of bacteremia * Adjust antibiotics according to sensitivity Dense community-acquired left lower lobe pneumonia possibly aspiration * placed on ceftriaxone azithromycin * May need prolonged IV course of ceftriaxone due to have densely infiltrated Paroxysmal atrial fibrillation rapid ventricular response likely secondary to cardiotoxicity from pneumonia * Started on IV diltiazem but converted to sinus rhythm and started on oral diltiazem Chronic medical conditions: * Scoliosis * Gout * Humerus fracture (04/01/24) * Basal cell adenocarcinoma * DVT (deep venous thrombosis) (~02/2023) * SVT (supraventricular tachycardia) * HLD (hyperlipidemia) * COPD (chronic obstructive pulmonary disease) * Osteoarthritis * Chronic airway obstruction * Rosacea * Diabetes * HTN (hypertension) DVT prophylaxis * covered with anticoagulation Code status: * Full code blue Disposition: * Inpatient anticipate 3 days of hospitalization after which we will decide continue treatment we will need to be Time based billin minutes were involved in the evaluation of this patient including direct patient evaluation in-person physical examination of the patient review of imaging as well as objective laboratory findings and discussion with emergency provider and treating team in the intensive care unit Exam Vital Signs (past 8 hours): - 04/02/25 06:30 04/02/25 07:00 04/02/25 07:00 Temperature Pulse Rate 86 84 Respiratory Rate 18 16 Blood Pressure Pulse Oximetry Oxygen Delivery Method Room Air Oxygen Flow Rate 04/02/25 07:22 04/02/25 07:30 04/02/25 08:00 Temperature 97.7 F Pulse Rate 84 84 Respiratory Rate 16 16 Blood Pressure Pulse Oximetry 89 L Oxygen Delivery Method Oxygen Flow Rate 04/02/25 08:30 04/02/25 08:33 04/02/25 09:00 Temperature Pulse Rate 89 93 H 89 Respiratory Rate 21 22 Blood Pressure 120/58 L Pulse Oximetry 91 93 Oxygen Delivery Method Oxygen Flow Rate 04/02/25 09:18 04/02/25 09:18 04/02/25 09:22 Temperature 98.1 F Pulse Rate 93 H Respiratory Rate 27 H Blood Pressure 132/62 Pulse Oximetry 91 Oxygen Delivery Method Oxygen Flow Rate 04/02/25 09:30 04/02/25 10:00 04/02/25 10:30 Temperature Pulse Rate 90 84 82 Respiratory Rate 22 17 22 Blood Pressure Pulse Oximetry 89 L 99 98 Oxygen Delivery Method Oxygen Flow Rate 04/02/25 11:00 04/02/25 11:16 04/02/25 11:21 Temperature 98.4 F Pulse Rate 82 Respiratory Rate 24 Blood Pressure 120/55 L Pulse Oximetry 97 Oxygen Delivery Method Oxygen Flow Rate 04/02/25 12:00 Temperature 98.4 F Pulse Rate 81 Respiratory Rate 33 H Blood Pressure 123/58 L Pulse Oximetry 99 Oxygen Delivery Method Oxygen Flow Rate 0 Oxygen Delivery Method Room Air Oxygen Flow Rate 0 Objective Labs 04/02/25 06:22 04/02/25 06:22 Labs: Laboratory Results - last 24 hr 04/01/25 04/02/25 04/02/25 13:35 00:09 06:22 WBC 14.8 H RBC 3.44 L Hgb 10.1 L Hct 30.0 L MCV 87.1 MCH 29.3 MCHC 33.7 RDW 15.6 H Plt Count 331 Neut % (Auto) 78.4 H Lymph % (Auto) 13.5 L Candler % (Auto) 7.7 Eos % (Auto) 0.2 L Baso % (Auto) 0.2 Neut # (Auto) 50499 H Lymph # (Auto) 2000 Candler # (Auto) 1100 H Eos # (Auto) 0 Baso # (Auto) 0 Sodium 130 L Potassium 3.9 Chloride 96 L Carbon Dioxide 22 BUN 72 H Creatinine 1.80 H Estimated GFR 28 L BUN/Creatinine Ratio 40.0 H Glucose 302 H POC Whole Bld Glucose Hemoglobin A1c 7.4 H Calcium 9.4 Nasal Screen MRSA (PCR) Not detected A.calcoaceticus-baumannii cmplx PCR Not detected Bacteroides fragilis Not detected Zayra albicans (PCR) Not detected Zayra auris (PCR) Not detected C. glabrata (PCR) Not detected C. krusei (PCR) Not detected C. parapsilosis (PCR) Not detected C. tropicalis (PCR) Not detected C. neoform/gattii (PCR) Not detected Enterobacterales (PCR) Not detected E. cloacae complex PCR Not detected Enterococc faecalis PCR Not detected Enterococc faecium PCR Not detected E. coli (PCR) Not detected H. influenzae (PCR) Not detected Klebsiella aerogenes (PCR) Not detected Klebsiella oxytoca PCR Not detected Klebsiella pneumoniae Not detected List. monocytogenes PCR Not detected N. meningitidis (PCR) Not detected Proteus species (PCR) Not detected Salmonella spp. (PCR) Not detected Serratia marcescens PCR Not detected Staphylococcus sp PCR Not detected Staph aureus (PCR) Not detected mecA/C & MREJ Resist Gene Not applicable mecA/C-Methicil Resis Gene Not applicable mcr-1 Colistin Res Gene PCR Not applicable Staph epidermidis (PCR) Not detected Staph lugdunensis PCR Not detected S. maltophilia (PCR) Not detected Streptococcus sp PCR Detected Group A Strep (PCR) Not detected Strep agalactiae (PCR) Not detected Strep pneumoniae (PCR) Detected P. aeruginosa (PCR) Not detected Rosalva/B-Vanco Res Genes Not applicable blaIMP Car res Gene PCR Not applicable KPC-Carbap Res Gene PCR Not applicable blaNDM Car Res Gene PCR Not applicable OXA-48 Carbapenem Resis Gene (PCR) Not applicable blaVIM Car Res Gene PCR Not applicable CTX-M Gene Resistance (PCR) Not applicable 09/28/25 09/28/25 08:30 11:13 WBC RBC Hgb Hct MCV MCH MCHC RDW Plt Count Neut % (Auto) Lymph % (Auto) Candler % (Auto) Eos % (Auto) Baso % (Auto) Neut # (Auto) Lymph # (Auto) Candler # (Auto) Eos # (Auto) Baso # (Auto) Sodium Potassium Chloride Carbon Dioxide BUN Creatinine Estimated GFR BUN/Creatinine Ratio Glucose POC Whole Bld Glucose 344 H 452 H* D Hemoglobin A1c Calcium Nasal Screen MRSA (PCR) A.calcoaceticus-baumannii cmplx PCR Bacteroides fragilis Zayra albicans (PCR) Zayra auris (PCR) C. glabrata (PCR) C. krusei (PCR) C. parapsilosis (PCR) C. tropicalis (PCR) C. neoform/gattii (PCR) Enterobacterales (PCR) E. cloacae complex PCR Enterococc faecalis PCR Enterococc faecium PCR E. coli (PCR) H. influenzae (PCR) Klebsiella aerogenes (PCR) Klebsiella oxytoca PCR Klebsiella pneumoniae List. monocytogenes PCR N. meningitidis (PCR) Proteus species (PCR) Salmonella spp. (PCR) Serratia marcescens PCR Staphylococcus sp PCR Staph aureus (PCR) mecA/C & MREJ Resist Gene mecA/C-Methicil Resis Gene mcr-1 Colistin Res Gene PCR Staph epidermidis (PCR) Staph lugdunensis PCR S. maltophilia (PCR) Streptococcus sp PCR Group A Strep (PCR) Strep agalactiae (PCR) Strep pneumoniae (PCR) P. aeruginosa (PCR) Rosalva/B-Vanco Res Genes blaIMP Car res Gene PCR KPC-Carbap Res Gene PCR blaNDM Car Res Gene PCR OXA-48 Carbapenem Resis Gene (PCR) blaVIM Car Res Gene PCR CTX-M Gene Resistance (PCR) PFSH Medical History Scoliosis Gout Humerus fracture (04/01/24) Basal cell adenocarcinoma DVT (deep venous thrombosis) (~02/2023) SVT (supraventricular tachycardia) HLD (hyperlipidemia) COPD (chronic obstructive pulmonary disease) Osteoarthritis Chronic airway obstruction Rosacea Diabetes HTN (hypertension) Surgical History Hx of total knee arthroplasty (02/2023) H/O total hip arthroplasty H/O: hysterectomy History of gastric stapling Social History household members: none Smoking Status: Former smoker alcohol intake: current Assessment & Plan Time-Based Coding :: [TOTAL MINUTES] spent with patient and on the chart (including review of chart, obtaining history, exam, reviewing outside data, placing orders, documenting exam and treatment plan, and counseling patient) on [DATE].
--- NOTE | 2025-04-02 16:20 | CM.DANOTE ---
DCP Assessment note brief pt is an 79yo F admitted with afib, converted relatively quickly but found to have gram pos bacteremia/pnemonia. cultures pending. on IV abx for now. HEALTH TECHNICAL WRITER reviewed EMR. last admission Jun 2024 where pt DC'd to [facility]. also hx of regency. per chart, lives home alone in [place], dtr/DPOA Brandi lives nearby. per RN, pt weaker than normal. 1PA with nursing. will f/u about official PT/OT eval Thursday for DCP coordination. HEALTH TECHNICAL WRITER unable to meet with pt/dtr today due to triaging needs. P: pending pt preference/DCP needs, potential good SNF candidate. will f/u with what IV cultures/PT/OT recs/pt and family preference tomorrow. ROBSON Bailey Discharge Planning/Care Management Advanced directive, confirm from FAMILY Start: 04/01/25 14:06 Freq: Q24H Status: Active Protocol: Document 04/01/25 14:06 MS (Rec: 04/01/25 14:50 MS [id number]) Advance Directive, confirm on record Time 14:50 Person contacted Patient Copy received No CM Discharge Assessment Start: 04/01/25 12:35 Freq: Status: Active Protocol: Document 04/02/25 16:19 SL (Rec: 04/02/25 16:20 SL [id number]) Discharge Planning Assessment Assigned Discharge ROBSON Cabral Assistant Teaching Professor Provider Jesse Totsy Insurance Medicare Insurance Comment [place] [employer] [place] secondary DPOA/Assigned Brandi, dtr Designee Name Contact Information [phone] Advance Directives? Yes Advance Directives No on File History Provided By Patient,Family Member,Medical Record Prior Living House Arrangements Household Members none DME Already Rented / FWW / Walker Owned Patient/Family Long Term Facility Preference Discharge Plan Long Term Facility Transportation Wheelchair van Arrangement Referrals Initiated Long Term Additional Comment hx of [facility] If patient plan is No SNF: Has PASSR been completed? Review Status In Process Please Provide Date 04/02/25 Initial DC Assessment Was Performed Next Review Type Continued Stay Review
[2025-04-02] MEDS: INSULIN GLARGINE 100 UNIT/ML 3ML PEN 10 UNIT SUBCUT (17:22)
[2025-04-02] MEDS: ATORVASTATIN 20 MG TABLET 40 MG PO (17:23)
[2025-04-02] MEDS: MAGNESIUM CHLORIDE 64 MG TABLET PO (20:52)
[2025-04-03] VITALS (55 sets, daily range): BP systolic 126–140; BP diastolic 57–96; PULSE 77–119; RESP 16–38; TEMP 36.6–37.1; O2SAT 93–99
[2025-04-03 05:25] LABS: Add Manual Diff / Slide Review NO; Hematocrit 28.5 % (36-46); Hemoglobin 9.8 g/dL (12.0-16.0); Lymphocytes Absolute Auto 1200 /uL (1100-4500); Mean Corpuscular HGB Conc 34.5 % (30-36); Mean Corpuscular Hemoglobin 29.6 PG (26-34); Mean Corpuscular Volume 86.0 fL (80-100); Platelet Count 358 X10^3/uL (150-400)
--- NOTE | 2025-04-03 05:34 | PC.NURSE ---
security shift supervisor RN note pt fatigued overnight, c/o pain to ribs with ambulation, analgesic with effect, SOBOE, O2 sats >92 on 2L NC, pt mostly in SR then converted to Afib around 0500 when up to bedside commode to void 110-130s, when back in bed HR down to 100s in Afib, meds and labs as ordered, call wheeler within reach, care on going
[2025-04-03 05:37] LABS: Blood Urea Nitrogen 60 mg/dL (7-17); Calcium 9.5 mg/dL (8.4-10.2); Carbon Dioxide 26 mmol/L (22-32); Chloride 97 mmol/L (98-107); Estimated Glomerular Filt Rate 30 mL/min (>60); Glucose 198 mg/dL (70-99); HEMOLYSIS < 15 (0-50); Potassium 3.7 mmol/L (3.4-5.1); Sodium 132 mmol/L (137-145)
[2025-04-03] MEDS: cefTRIAXone 2,000 MG in SODIUM CHLORIDE 0.9% 100 ML 200 MG IV (08:29)
[2025-04-03] MEDS: AZITHROMYCIN 500 MG in DEXTROSE 5% IN WATER 250 ML 250 MG IV (10:05)
[2025-04-03] MEDS: INSULIN LISPRO 100 UNIT/ML 3ML VIAL SUBCUT ×4 (10:08→20:54)
[2025-04-03] MEDS: APIXABAN 5 MG TABLET 2.5 MG PO ×2 (10:08→20:55)
[2025-04-03] MEDS: CHOLECALCIFEROL (VITAMIN D3) 5,000 UNIT TABLET 5000 UNIT PO (10:09)
[2025-04-03] MEDS: LOSARTAN 25 MG TABLET PO (10:10)
[2025-04-03] MEDS: SODIUM CHLORIDE 0.9% FLUSH 10 ML IV ×2 (10:11→20:54)
[2025-04-03] MEDS: MULTIVITAMIN 1 TABLET 1 TAB PO (10:11)
[2025-04-03] MEDS: FISH OIL 1,000 MG CAPSULE 1000 MG PO (10:11)
--- NOTE | 2025-04-03 12:58 | PT.IIE ---
Current Diagnoses Pneumonia, unspecified organism (04/01/25) Surgical History (Last Reviewed 06/30/24 @ 13:27 by Zac Britton MD) H/O total hip arthroplasty H/O: hysterectomy History of gastric stapling Hx of total knee arthroplasty (02/2023) Medical History (Last Reviewed 06/30/24 @ 13:27 by Zac Britton MD) Basal cell adenocarcinoma Chronic airway obstruction COPD (chronic obstructive pulmonary disease) Diabetes DVT (deep venous thrombosis) (~02/2023) Gout HLD (hyperlipidemia) HTN (hypertension) Humerus fracture (04/01/24) Osteoarthritis Rosacea Scoliosis SVT (supraventricular tachycardia) Physical Therapy Inpatient Evaluation/Re-Eval M1 PT/OT-IP Prior Functional Status Start: 04/03/25 12:41 Freq: NEEDED Status: Active Protocol: Document 04/03/25 12:42 AMB (Rec: 04/03/25 12:56 AMB [id number]) Medical Review Prior Functional Status Medical History Yes Reviewed Communication WFL Mobility and Gait States was not using an AD but does have a cane and a walker that she could use if needed Social History Household Members none Living Arrangements House Number of Stairs To 2STE railing on one side Enter/Railing? Home Equipment Front Wheel Walker,Straight Cane M2 PT-IP Current Condition Start: 04/03/25 12:41 Freq: NEEDED Status: Active Protocol: Document 04/03/25 12:42 AMB (Rec: 04/03/25 12:56 AMB [id number]) Physical Therapy Current Condition Current Condition Evaluation Date 04/03/25 Treatment Diagnosis pneumonia, afib,weakness Onset Date 04/02/25 M3 PT-IP Subjective Start: 04/03/25 12:41 Freq: NEEDED Status: Active Protocol: Document 04/03/25 12:42 AMB (Rec: 04/03/25 12:56 AMB [id number]) Subjective Physical Therapy Visit Type Type Initial Evaluation Visit Start Time 12:00 Visit Stop Time 12:30 Physical Therapy Visit Comments Patient Comments Pt willing to get up to chair for lunch Therapy Pain Assessment Pain When Pain Assessed At Rest Pain Present Pain Present Denied Pain M4 PT-IP Mobility and Gait Start: 04/03/25 12:41 Freq: NEEDED Status: Active Protocol: Document 04/03/25 12:42 AMB (Rec: 04/03/25 12:56 AMB [id number]) PT-Bed Mobility Assessment Rolling Type of Rolling Log Rolling,Roll to Left Level of Assist Minimal Assistance,1 Person Assistance Supine to Sit Supine to Sit Minimal Assistance,1 Person Assistance,Head of Bed Elevated,Bedrails PT-Transfer Assessment Sit to and From Stand Sit to and from Contact Guard Assistance Stand Transfers Transfer Destination Chair Transfer Technique Stand Step Pivot Transfer Ability Level of Assist Contact Guard Assistance Comments Mobility Comments Pt weak with short careful steps with FWW and CGA from bed to chair. Pt required Emanuel to roll to the left and sit up on EOB. Pt left with NAC in room with call light within reach. on 2L O2 via nasal cannula, HR and RR did increase with activity Gait Assessment Comments Gait Comments not assessed at this time due to weakness/fatigue M5 PT-IP Objective Assessments Start: 04/03/25 12:41 Freq: NEEDED Status: Active Protocol: Document 04/03/25 12:42 AMB (Rec: 04/03/25 12:56 AMB [id number]) Strength Lower Extremity Strength Assessment Bilaterally Impaired Hip 3 Knee 3 Ankle 3 M7 PT-IP Assessment and Plan Start: 04/03/25 12:41 Freq: NEEDED Status: Active Protocol: Document 04/03/25 12:42 AMB (Rec: 04/03/25 12:56 AMB [id number]) PT Summary Assessment and Plan Potential Rehabilitation Good Potential Status of Condition Evolving at Evaluation Summary Impairments Strength Assessment Summary Sherin was previously independent in the community, living alone, but developed pneumonia and a-fib. She now requires Emanuel for bed mobility and CGA with transfers. She does live alone. Her preference would be to d/c home if she is able to do so. If she is able to demonstrate the ability to walk with a FWW, ascend 2 steps independently she should be able to do so, but this was not assessed today due to fatigue/weakness. Would recommend home vs SNF depending on the speed of her recovery. Goals Bed Mobility Goal Independent Transfer Goal Independent Gait Goal Independent Gait Distance 200 Other Goals Ascend and descend 2 steps with one railing independently Days to Meet Goals 5 Frequency of Treatment Frequency Of Once a Day Treatment Treatment Plan Physical Therapy Bed Mobility Training,Transfer Training,Gait Training, Treatment Plan Therapeutic Exercise Recommendations To Nursing Amount of Assist 1 Person Assist Needed Discharge Recommendations PT Discharge Home with Assistance,Home Health,Home vs SNF Recommendations Transportation Needs Private Vehicle at Discharge - PT assist 1
[2025-04-03] MEDS: INSULIN GLARGINE 100 UNIT/ML 3ML PEN SUBCUT (14:12)
--- NOTE | 2025-04-03 14:44 | P.PN_ITS ---
Subjective Subjective Date Patient Seen: 04/03/25 Interval history: Chief complaint: Pleuritic chest pain secondary to dense pneumonia with precipitant atrial fibrillation rapid ventricular response Streptococcus pneumoniae bacteremia History of present illness: 04/01: 79-year-old with PAF and chronic DVT on Xarelto was seen in the emergency room 2 nights ago discharged home with presumed treatment for pleuritic chest pain did not seem to be infectious returned today. Findings significant for very dense left lower lobe pneumonia on CT which is retrocardiac and very unimpressive on chest x-ray with small pleural effusion and paroxysmal atrial fibrillation with rapid ventricular response. Patient admitted for pneumonia and probable precipitation of atrial fibrillation secondary to cardiotoxicity from pneumonia Hospital course: 04/02: Patient has remained in sinus rhythm overnight 2/2 blood cultures positive for Gram-positive cocci patient is feeling better still having some blurred symptoms with his are improved no rigors overnight vital signs stable with good oxygenation patient reports 1 sick contact prior to coming in also pleuritic symptoms 04/03: Patient fatigued noticing that her blood sugars are elevated overnight culture and sensitivity for Streptococcus pneumoniae is currently on ceftriaxone 2nd set of blood cultures no growth in 24 hours Blood culture 1. Streptococcus pneumoniae M.I.C. RX --------- --- * Clindamycin <=0.25 S * Erythromycin <=0.12 S * Levofloxacin <=0.25 S * Tetracycline <=0.25 S * Trimethoprim/Sulfamethoxazole <=10 S Review of systems: Patient is having fever and diminished appetite with cough but nonproductive Pleuritic chest pain which is worse with breathing and movement Diminished appetite but no vomiting no diarrhea No urinary symptom Physical exam: Elderly female appearing mildly ill HEENT unremarkable Neck no JVD Heart irregularly irregular rhythm Lungs clear except left base with diminished sound transmission Abdominal not distended not tender Extremities no edema Neurologic nonfocal Assessment and plan: Streptococcus pneumoniae bacteremia: * Escalate ceftriaxone to 2 g a day with azithromycin * Repeat blood cultures 04/02 no growth * Suspect pneumonia as source of bacteremia * Adjust antibiotics according to sensitivity at discharge to oral Dense community-acquired left lower lobe pneumonia with Streptococcus pneumoniae * placed on ceftriaxone azithromycin * May need prolonged IV course of ceftriaxone due to have densely infiltrated Paroxysmal atrial fibrillation rapid ventricular response likely secondary to cardiotoxicity from pneumonia * Started on IV diltiazem but converted to sinus rhythm and started on oral diltiazem Chronic medical conditions: * Scoliosis * Gout * Humerus fracture (04/01/24) * Basal cell adenocarcinoma * DVT (deep venous thrombosis) (~02/2023) * SVT (supraventricular tachycardia) * HLD (hyperlipidemia) * COPD (chronic obstructive pulmonary disease) * Osteoarthritis * Chronic airway obstruction * Rosacea * Diabetes * HTN (hypertension) DVT prophylaxis * covered with anticoagulation Code status: * Full code blue Disposition: * Inpatient anticipate 3 days of hospitalization after which we will decide continue treatment we will need to be Time based billin minutes were involved in the evaluation of this patient including direct patient evaluation in-person physical examination of the patient review of imaging as well as objective laboratory findings and discussion with emergency provider and treating team in the intensive care unit Exam Vital Signs (past 8 hours): - 04/03/25 07:00 04/03/25 07:00 04/03/25 07:30 Temperature Pulse Rate 101 H 98 H Respiratory Rate 20 19 Blood Pressure Pulse Oximetry 97 98 Oxygen Delivery Method Nasal Cannula 04/03/25 07:59 04/03/25 07:59 04/03/25 08:00 Temperature 97.8 F Pulse Rate 101 H 105 H Respiratory Rate 18 21 Blood Pressure 138/62 138/62 Pulse Oximetry 97 99 Oxygen Delivery Method 04/03/25 08:00 04/03/25 08:30 04/03/25 09:00 Temperature Pulse Rate 104 H 101 H 99 H Respiratory Rate 19 19 23 Blood Pressure Pulse Oximetry 98 96 96 Oxygen Delivery Method 04/03/25 09:30 04/03/25 10:00 04/03/25 10:30 Temperature Pulse Rate 96 H 96 H 106 H Respiratory Rate 19 33 H 24 Blood Pressure Pulse Oximetry 96 97 Oxygen Delivery Method 04/03/25 11:00 04/03/25 11:30 04/03/25 12:00 Temperature 98.8 F Pulse Rate 119 H 104 H Respiratory Rate 38 H 23 Blood Pressure Pulse Oximetry Oxygen Delivery Method 04/03/25 12:00 04/03/25 12:22 04/03/25 12:22 Temperature Pulse Rate 113 H 106 H Respiratory Rate 27 H 27 H Blood Pressure 140/59 L Pulse Oximetry 93 Oxygen Delivery Method 04/03/25 12:30 Temperature Pulse Rate 104 H Respiratory Rate 37 H Blood Pressure Pulse Oximetry Oxygen Delivery Method Fraction of Inspired Oxygen 28 Oxygen Delivery Method Nasal Cannula Oxygen Flow Rate 2 Objective Labs 04/03/25 04:58 04/03/25 04:58 Labs: Laboratory Results - last 24 hr 04/02/25 04/02/25 04/03/25 17:14 20:50 04:58 WBC 9.4 RBC 3.31 L Hgb 9.8 L Hct 28.5 L MCV 86.0 MCH 29.6 MCHC 34.5 RDW 15.5 H Plt Count 358 Neut % (Auto) 71.0 Lymph % (Auto) 13.1 L Major % (Auto) 14.3 H Eos % (Auto) 1.4 L Baso % (Auto) 0.2 Neut # (Auto) 6700 Lymph # (Auto) 1200 Major # (Auto) 1400 H Eos # (Auto) 100 Baso # (Auto) 0 Sodium 132 L Potassium 3.7 Chloride 97 L Carbon Dioxide 26 BUN 60 H Creatinine 1.68 H Estimated GFR 30 L BUN/Creatinine Ratio 35.7 H Glucose 198 H D POC Whole Bld Glucose 308 H D 304 H Calcium 9.5 04/03/25 04/03/25 07:57 12:20 WBC RBC Hgb Hct MCV MCH MCHC RDW Plt Count Neut % (Auto) Lymph % (Auto) Major % (Auto) Eos % (Auto) Baso % (Auto) Neut # (Auto) Lymph # (Auto) Major # (Auto) Eos # (Auto) Baso # (Auto) Sodium Potassium Chloride Carbon Dioxide BUN Creatinine Estimated GFR BUN/Creatinine Ratio Glucose POC Whole Bld Glucose 235 H 388 H D Calcium PFSH Medical History Scoliosis Gout Humerus fracture (04/01/24) Basal cell adenocarcinoma DVT (deep venous thrombosis) (~02/2023) SVT (supraventricular tachycardia) HLD (hyperlipidemia) COPD (chronic obstructive pulmonary disease) Osteoarthritis Chronic airway obstruction Rosacea Diabetes HTN (hypertension) Surgical History Hx of total knee arthroplasty (02/2023) H/O total hip arthroplasty H/O: hysterectomy History of gastric stapling Social History household members: none Smoking Status: Former smoker alcohol intake: current Assessment & Plan Time-Based Coding :: [TOTAL MINUTES] spent with patient and on the chart (including review of chart, obtaining history, exam, reviewing outside data, placing orders, documenting exam and treatment plan, and counseling patient) on [DATE].
--- NOTE | 2025-04-03 15:14 | CM.DPNOTE ---
DCP note PLATEN PRESS OPERATOR APPRENTICE reviewed EMR per provider, cultures pending for ABX plan. pt improving today. per PT/OT, appropriate for home vs SNF vs HH. was not able to do much today. PLATEN PRESS OPERATOR APPRENTICE met with pt and GREG Paz in room. confirmed preference with [facility] resumption but if need longterm IV abx open to SNF at . deny other CM /DCP needs. will work to restart PP CGs in home for domestic care. PLATEN PRESS OPERATOR APPRENTICE will send [facility] initial ref information tomorrow. HH order and f2f needed. P: dc home in a few days/once cultures finalize for ABX plan. [facility] ref needed. CM team will continue to follow closely for DCP coordination ROBSON Bailey
--- NOTE | 2025-04-03 15:58 | OT.IP.EVAL ---
Current Diagnoses Pneumonia, unspecified organism (04/01/25) Past Medical History (Last Reviewed 06/30/24 @ 13:27 by Zac Britton MD) Basal cell adenocarcinoma Chronic airway obstruction COPD (chronic obstructive pulmonary disease) Diabetes DVT (deep venous thrombosis) (~02/2023) Gout HLD (hyperlipidemia) HTN (hypertension) Humerus fracture (04/01/24) Osteoarthritis Rosacea Scoliosis SVT (supraventricular tachycardia) Surgical History (Last Reviewed 06/30/24 @ 13:27 by Zac Britton MD) H/O total hip arthroplasty H/O: hysterectomy History of gastric stapling Hx of total knee arthroplasty (02/2023) Occupational Therapy Inpatient Evaluation/Re-Eval M1 PT/OT-IP Prior Functional Status Start: 04/03/25 12:41 Freq: NEEDED Status: Active Protocol: Document 04/03/25 15:39 LESTER (Rec: 04/03/25 15:57 LESTER Desktop) Medical Review Prior Functional Status Medical History Yes Reviewed Communication WFL Mobility and Gait States was not using an AD but does have a cane and a walker that she could use if needed Activities of Daily Pt reports performing her BADLs, cooking, and light Living and IADL's housekeeping. Pt drives. Social History Household Members none Living Arrangements House Number of Stairs To 2STE railing on one side Enter/Railing? Home Environment Standard Height Toilet,Walk in Shower Home Equipment Front Wheel Walker,Straight Cane,Hand Held Shower, Materials Handler,Sock Aid,Grab Bars In Shower Additional Social built in shower seat History Comment M2 OT-IP Current Condition Start: 04/03/25 15:38 Freq: Status: Active Protocol: Document 04/03/25 15:39 LESTER (Rec: 04/03/25 15:57 NORMAINSTEFANIE Desktop) Occupational Therapy Current Condition Current Condition Evaluation Date 04/03/25 Treatment Diagnosis pneumonia, decreased self care Diagnosis Onset Date 04/01/25 M3 OT- IP Subjective and Pain Start: 04/03/25 15:38 Freq: Status: Active Protocol: Document 04/03/25 15:39 LESTER (Rec: 04/03/25 15:57 LESTER Desktop) OT- Subjective Occupational Therapy Visit Type Type Initial Evaluation Visit Start Time 14:30 Visit Stop Time 15:00 Notes Pt was sitting up in recliner on entrance of OT. Pt agreeable to participating in OT eval. Occupational Therapy Visit Comments Patient Comments Pt states that she would like to go home when she is able. OT Pain Assessment Pain Present Pain Present Denied Pain M4 OT- IP ADL's Start: 04/03/25 15:38 Freq: Status: Active Protocol: Document 04/03/25 15:39 [facility] [id number] Comments OT Self-Feeding not observed, not a meal time Comments OT ADL-Grooming General Evaluation Grooming Ability Standby Assistance Comments OT Grooming Comments Pt performs hand hygiene sink side with S. Pt declines additional grooming tasks at this time. OT ADL-Oral Care Comments Oral Care Comments pt declines oral hygiene, preferring to perform after her evening meal. OT ADL-Dressing General Eval Lower Body Dressing Minimal Assistance,Maximum Assistance Ability Areas Needing Underpants/Brief,Socks Assistance Comments OT Dressing Comments Pt required MAX A for socks and MIN A for brief OT ADL-Toileting General Evaluation Toileting Ability Contact Guard Assistance Devices Toileting Assistive Commode,Grab Bars Devices Comments OT Toileting Pt is able to manage hygiene with min encouragement to Comments attempt and able to manage clothing with CGA. OT ADL-Bathing Comments OT Bathing Comments not observed M5 OT- IP IADL's Start: 04/03/25 15:38 Freq: Status: Active Protocol: Document 04/03/25 15:39 LESTER (Rec: 04/03/25 15:57 [facility]) OT-Instrumental Activities of Daily Living Deficits IADL Deficits No Deficits Identified Home Safety Awareness Awareness of Need Good Awareness for Assistance at Home Ability to Problem Able to Problem Solve Solve Emergency Situations Medication Management Medication No Deficits Identified Management Money Management Money Management No Deficits Identified Meal Preparation Meal Preparation No Deficits Identified Logistics Engineer Logistics Engineer No Deficits Identified M6 OT- IP Functional Cognition Start: 04/03/25 15:38 Freq: Status: Active Protocol: Document 04/03/25 15:39 LESTER (Rec: 04/03/25 15:57 [facility]) Cognitive Factors Limiting Selfcare Function Cognitive Ability Level of Alertness Alert Patient Orientation Name,Age,Birthday,Month,Date,Year,Place,Situation Attention Span Capable of Focused Attention,Capable of Sustained Ability Attention Ability to Follow Able to Follow One Step Commands,Able to Follow Multi- Commands Step Commands Memory Description No Deficits Noted Safety Awareness No Deficits Noted Problem Solving No deficits Noted Ability OT- Vision and Hearing OT- Hearing Assessment OT- Hearing WFL Assessment OT- Vision Assessment Visual Acuity WFL,Glasses For Reading M7 OT- IP Mobility and Balance Start: 04/03/25 15:38 Freq: Status: Active Protocol: Document 04/03/25 15:39 NORMAINSTEFANIE (Rec: 04/03/25 15:57 [facility] Desktop) OT-Transfer Assessment Sit to and From Stand Sit to and from Minimal Assistance,1 Person Assistance Stand Transfers Transfer Ability Contact Guard Assistance,1 Person Assistance Technique Transfer Destination Chair,Toilet Transfer Technique Stand Step Pivot Devices Transfer Assistive Gait Belt,Front Wheeled Walker Devices Comments Mobility Comments Pt performs functional t/fs with good safety awareness, no vcs need for hand placement. OT- Gait Assessment Gait Gait Assistance Contact Guard Assist Required: Distance (Feet) 15 Assistive Devices Assistive Device Gait Belt,Front Wheeled Walker Comments Gait Ability Pt amb to bathroom and sink for BADLs before returning Comments to recliner. OT- Balance Assessment Sitting Balance and Reactions Static Sitting Normal Balance Ability Dynamic Sitting Good Balance Ability Standing Balance and Reactions Static Standing Good Balance Ability Dynamic Standing Good Balance Ability M8 OT- IP Objective Assessments Start: 04/03/25 15:38 Freq: Status: Active Protocol: Document 04/03/25 15:39 [facility] (Rec: 04/03/25 15:57 [facility]) OT Gross Range of Motion Upper Extremity Range of Motion Assessment Left Impaired ROM Impairments L shoulder ~ 90 active flexion OT Strength Upper Extremity Strength Assessment Left Impaired Shoulder L 3 Hand Can Cutter Strength Hand Dominance Right Comments Strength Comments R UE with overall 4/5 strength, B high density talc coater operator 4/5 OT-Muscle Tone Assessment Muscle Tone WNL Yes OT Sensation Assessment Edema Edema Absent M9 OT- IP Assessment and Plan Start: 04/03/25 15:38 Freq: Status: Active Protocol: Document 04/03/25 15:39 LESTER (Rec: 04/03/25 15:57 [facility] Desktop) OT Summary Assessment and Plan Potential Rehabilitation Good Potential Analytic Complexity Low at Evaluation Summary OT Impairments Range of Motion,Strength,Balance,Functional Mobility, Grooming,Dressing,Toileting,Bathing,Toilet Transfers, Shower Transfers,Activity Tolerance Progress Towards Progressing Toward Goals Goals Assessment Summary Pt is an 79 yo F with precipitant afib, chronic DVT, and recent onset pneumonia. Pt presents with SOB. Pts O2 sat on 2L throughout treatment 95-98. Pt BP seated 140/59. Pt required MIN A for transfers, S for grooming, MIN-MAX for LB dressing, and CGA for toileting. Pt presents with decreased functional t/fs, activity intolerance, and decreased BADLs. Skilled OT services are appropriate to address these deficits and promote return toward PLOF. Pt would benefit from HH services on dc. Goals Grooming Goal Independent Dressing Goal Independent,Materials Handler,Sock Aid Toileting Goal Independent Bathing Goal Independent Toilet Transfer Goal Independent Shower Transfer Goal Independent,Walk-in Shower,Grab Bars Days to Meet Goals 15 Frequency of Treatment Other frequency 5x/wk Treatment Plan OT Treatment Plan ADL Training,Functional Mobility,Therapeutic Exercises, Patient/Family Education,Discharge Planning Discharge Recommendations OT Discharge Home,Home Health Recommendations Transportation Needs Private Vehicle,Wheelchair/Cabulance at Discharge
[2025-04-03] MEDS: ATORVASTATIN 20 MG TABLET 40 MG PO (17:24)
[2025-04-03] MEDS: INSULIN GLARGINE 100 UNIT/ML 3ML PEN 15 UNIT SUBCUT (20:56)
[2025-04-03] MEDS: MAGNESIUM CHLORIDE 64 MG TABLET PO (20:58)
[2025-04-04] VITALS (52 sets, daily range): BP systolic 131–142; BP diastolic 63–72; PULSE 92–131; RESP 19–44; TEMP 36.9–37.2; O2SAT 90–98
[2025-04-04 05:55] LABS: Hematocrit 30.6 % (36-46); Hemoglobin 10.7 g/dL (12.0-16.0); Mean Corpuscular HGB Conc 35.1 % (30-36); Mean Corpuscular Hemoglobin 30.2 PG (26-34); Mean Corpuscular Volume 86.0 fL (80-100); Platelet Count 410 X10^3/uL (150-400)
[2025-04-04 05:59] LABS: Add Manual Diff / Slide Review YES
[2025-04-04 06:02] LABS: Blood Urea Nitrogen 56 mg/dL (7-17); Calcium 9.9 mg/dL (8.4-10.2); Carbon Dioxide 26 mmol/L (22-32); Chloride 97 mmol/L (98-107); Estimated Glomerular Filt Rate 33 mL/min (>60); Glucose 195 mg/dL (70-99); HEMOLYSIS < 15 (0-50); Potassium 4.0 mmol/L (3.4-5.1); Sodium 130 mmol/L (137-145)
[2025-04-04 06:26] LABS: Band Neutrophils Percent 4.0 % (3-7); Eosinophils Percent Manual 2.0 % (2-4); Lymphocytes Percent Manual 25.0 % (25-45); Monocytes Percent Manual 12.0 % (2-11); Neutrophils Absolute Manual 5246 /uL (3000-5900); RBC Morphology Normal Morphology; Segmented Neutrophils Percent 57.0 % (38-70); Total Cells Counted 100
[2025-04-04] MEDS: MULTIVITAMIN 1 TABLET 1 TAB PO (08:36)
[2025-04-04] MEDS: FISH OIL 1,000 MG CAPSULE 1000 MG PO (08:36)
[2025-04-04] MEDS: CHOLECALCIFEROL (VITAMIN D3) 5,000 UNIT TABLET 5000 UNIT PO (08:36)
[2025-04-04] MEDS: LOSARTAN 25 MG TABLET PO (08:36)
[2025-04-04] MEDS: APIXABAN 5 MG TABLET 2.5 MG PO ×2 (08:36→20:14)
[2025-04-04] MEDS: cefTRIAXone 2,000 MG in SODIUM CHLORIDE 0.9% 100 ML 200 MG IV (08:39)
[2025-04-04] MEDS: INSULIN LISPRO 100 UNIT/ML 3ML VIAL SUBCUT ×5 (08:42→16:36)
[2025-04-04] MEDS: SODIUM CHLORIDE 0.9% FLUSH 10 ML IV ×2 (08:53→20:23)
[2025-04-04] MEDS: AZITHROMYCIN 500 MG in DEXTROSE 5% IN WATER 250 ML 250 MG IV (09:53)
--- NOTE | 2025-04-04 11:53 | OT.IP.TRT ---
Current Diagnoses Pneumonia, unspecified organism (04/01/25) Occupational Therapy Treatment Note M2 OT-IP Current Condition Start: 04/03/25 15:38 Freq: Status: Active Protocol: Document 04/03/25 15:39 LESTER (Rec: 04/03/25 15:57 LESTER Desktop) Occupational Therapy Current Condition Current Condition Evaluation Date 04/03/25 Treatment Diagnosis pneumonia, decreased self care Diagnosis Onset Date 04/01/25 M3 OT- IP Subjective and Pain Start: 04/03/25 15:38 Freq: Status: Active Protocol: Document 04/04/25 11:53 [facility] (Rec: 04/04/25 12:27 [facility] Desktop) OT- Subjective Occupational Therapy Visit Type Type Treatment Note Visit Start Time 11:05 Visit Stop Time 11:53 Occupational Therapy Visit Comments Patient Comments Pt wanting to use the BSC. Patient/Caregiver Pt states feels that she will be better off going to [facility] skilled rehab prior to going home. OT Pain Assessment Pain When Pain Assessed During Mobility Pain Present Pain Present Pain Reported Location Left Back Pain Behaviors Facial Grimacing M4 OT- IP ADL's Start: 04/03/25 15:38 Freq: Status: Active Protocol: Document 04/04/25 11:53 [facility] (Rec: 04/04/25 12:27 [facility] Desktop) OT [id number] Comments OT Self-Feeding NOt at meal time. Comments OT ADL-Grooming Comments OT Grooming Comments Pt states to do after lunch. OT ADL-Oral Care Comments Oral Care Comments Pt refused and to do after lunch. OT ADL-Dressing General Eval Lower Body Dressing Minimal Assistance,Maximum Assistance Ability Areas Needing Underpants/Brief,Socks Assistance Comments OT Dressing Comments Pt required MAX A for socks and MIN A for brief. Pt able to use director software development to assist but still needing assist to help get her feet into the brief initially. OT ADL-Toileting General Evaluation Toileting Ability Minimal Assistance Areas Needing Manage Clothing Assistance Devices Toileting Assistive Commode Devices Comments OT Toileting Pt able to wipe while holding onto the FWW with CGA. Comments SHREE for brief management needs. OT ADL-Bathing Comments OT Bathing Comments Not performed. M5 OT- IP IADL's Start: 04/03/25 15:38 Freq: Status: Active Protocol: Document 04/03/25 15:39 LESTER (Rec: 04/03/25 15:57 [facility]) OT-Instrumental Activities of Daily Living Deficits IADL Deficits No Deficits Identified Home Safety Awareness Awareness of Need Good Awareness for Assistance at Home Ability to Problem Able to Problem Solve Solve Emergency Situations Medication Management Medication No Deficits Identified Management Money Management Money Management No Deficits Identified Meal Preparation Meal Preparation No Deficits Identified Neighborhood Worker Neighborhood Worker No Deficits Identified M6 OT- IP Functional Cognition Start: 04/03/25 15:38 Freq: Status: Active Protocol: Document 04/04/25 11:53 [facility] (Rec: 04/04/25 12:27 [facility] Desktop) Cognitive Factors Limiting Selfcare Function Cognitive Comments Cognitive Assessment Pt states realizes that she feels too weak to be able Comments to care for herself at this time and wanting to go to skilled rehab first. M7 OT- IP Mobility and Balance Start: 04/03/25 15:38 Freq: Status: Active Protocol: Document 04/04/25 11:53 [facility] (Rec: 04/04/25 12:27 [facility] Desktop) OT-Transfer Assessment Sit to and From Stand Sit to and from Minimal Assistance,1 Person Assistance Stand Transfers Transfer Ability Contact Guard Assistance,Minimal Assistance,1 Person Assistance Technique Transfer Destination Bed,Bedside Commode,Chair Transfer Technique Stand Step Pivot Devices Transfer Assistive Gait Belt,Front Wheeled Walker Devices Comments Mobility Comments SHREE to help get up from the bed to stand and transfer to the BSC and then recliner with CGA to SHREE with FWW. Pt on RA 89-91% and replaced O2 on 2L on and pt at 95% and states feeling a bit better. OT- Balance Assessment Sitting Balance and Reactions Static Sitting Normal Balance Ability Dynamic Sitting Good Balance Ability Standing Balance and Reactions Static Standing Good Balance Ability Dynamic Standing Fair Balance Ability M8 OT- IP Objective Assessments Start: 04/03/25 15:38 Freq: Status: Active Protocol: Document 04/03/25 15:39 LESTER (Rec: 04/03/25 15:57 [facility] Desktop) OT Gross Range of Motion Upper Extremity Range of Motion Assessment Left Impaired ROM Impairments L shoulder ~ 90 active flexion OT Strength Upper Extremity Strength Assessment Left Impaired Shoulder L 3 Hand Addiction Social Worker Strength Hand Dominance Right Comments Strength Comments R UE with overall 4/5 strength, B smoking tobacco cutter operator 4/5 OT-Muscle Tone Assessment Muscle Tone WNL Yes OT Sensation Assessment Edema Edema Absent M9 OT- IP Assessment and Plan Start: 04/03/25 15:38 Freq: Status: Active Protocol: Document 04/04/25 11:53 [facility] (Rec: 04/04/25 12:27 [facility] Desktop) OT Summary Assessment and Plan Potential Rehabilitation Good Potential Analytic Complexity Low at Evaluation Summary OT Impairments Range of Motion,Strength,Balance,Functional Mobility, Grooming,Dressing,Toileting,Bathing,Toilet Transfers, Shower Transfers,Activity Tolerance Progress Towards Slow Progress due to Medical Issues,Slow Progress due Goals to Activity Tolerance Assessment Summary Pt on RA and O2 from 89-91% and O2 replaced on 2L and at 95%. Pt till needing SHREE-MAXA for dressing needs and CGA for toileting. Pt still having decreased activity tolerance and needing assist for ADL and mobility needs. Therefore pt will benefit from skilled rehab prior to going home. Goals Grooming Goal Independent Dressing Goal Independent,Electronic Parts Designer,Sock Aid Toileting Goal Independent Bathing Goal Independent Toilet Transfer Goal Independent Shower Transfer Goal Independent,Walk-in Shower,Grab Bars Days to Meet Goals 15 Frequency of Treatment Other frequency 5x/wk Treatment Plan OT Treatment Plan ADL Training,Functional Mobility,Therapeutic Exercises, Patient/Family Education,Discharge Planning Discharge Recommendations OT Discharge SNF Rehab Recommendations Transportation Needs Private Vehicle,Wheelchair/Cabulance at Discharge
--- NOTE | 2025-04-04 12:34 | DI.RAD.S_ITS ---
PROCEDURE: XR CHEST 1V INDICATIONS: Pneumonia TECHNIQUE: One view of the chest was acquired. COMPARISON: [facility], CR, XR CHEST 1V, 04/01/2025, 9:54. FINDINGS: Surgical changes and devices: Bilateral shoulder arthroplasties and left upper quadrant anastomotic subhash. Lungs and pleura: Opacity at the left lung base obscuring the diaphragm, probably a combination of consolidation and pleural effusion, similar to slightly increased compared to prior study. The right lung remains clear. No pneumothorax. Mediastinum: Mediastinal contours appear normal. Heart size is normal. Bones and chest wall: No suspicious bony lesions. Overlying soft tissues appear unremarkable. IMPRESSION: Persistent left base opacity including left pleural effusion, slightly increased compared to prior versus increasing volume loss. Dictated by: Keila Oscar M.D. on 04/04/2025 at 13:23 Approved by: Keila Oscar M.D. on 04/04/2025 at 13:31
--- NOTE | 2025-04-04 12:35 | EKG_ITS ---
[address] [id number] [place] [address] Test Date: 2025-04-04 Pat Name: Sherin Carias Department: Room: 228 Gender: Female Layout Worker: : 1945 Requested By: Order Number: [id number] Reading MD: Zac Britton Measurements Intervals [place] Rate: 98 P: DC: QRS: 20 QRSD: 82 T: 3 QT: 308 QTc: 393 Interpretive Statements Atrial fibrillation with premature ventricular or aberrantly conducted complexes Electronically Signed On 04-05-2025 8:15:31 PDT by Zac Britton
--- NOTE | 2025-04-04 12:39 | P.PN_ITS ---
Subjective Subjective Date Patient Seen: 04/04/25 Interval history: Chief complaint: Pleuritic chest pain secondary to dense pneumonia with precipitant atrial fibrillation rapid ventricular response Streptococcus pneumoniae bacteremia History of present illness: 04/01: 79-year-old with PAF and chronic DVT on Xarelto was seen in the emergency room 2 nights ago discharged home with presumed treatment for pleuritic chest pain did not seem to be infectious returned today. Findings significant for very dense left lower lobe pneumonia on CT which is retrocardiac and very unimpressive on chest x-ray with small pleural effusion and paroxysmal atrial fibrillation with rapid ventricular response. Patient admitted for pneumonia and probable precipitation of atrial fibrillation secondary to cardiotoxicity from pneumonia Hospital course: 04/02: Patient has remained in sinus rhythm overnight 2/2 blood cultures positive for Gram-positive cocci patient is feeling better still having some blurred symptoms with his are improved no rigors overnight vital signs stable with good oxygenation patient reports 1 sick contact prior to coming in also pleuritic symptoms 04/03: Patient fatigued noticing that her blood sugars are elevated overnight culture and sensitivity for Streptococcus pneumoniae is currently on ceftriaxone 2nd set of blood cultures no growth in 24 hours Blood culture 1. Streptococcus pneumoniae M.I.C. RX --------- --- * Clindamycin <=0.25 S * Erythromycin <=0.12 S * Levofloxacin <=0.25 S * Tetracycline <=0.25 S * Trimethoprim/Sulfamethoxazole <=10 S 04/04: Patient feeling more fatigued with more malaise today rhythm is back into atrial fibrillation diminished breath sounds bilaterally lungs heart irregularly irregular Review of systems: Patient is having fever and diminished appetite with cough but nonproductive Pleuritic chest pain which is worse with breathing and movement Diminished appetite but no vomiting no diarrhea No urinary symptom Physical exam: Elderly female appearing mildly ill HEENT unremarkable Neck no JVD Heart irregularly irregular rhythm Lungs diminished breath sounds and absent sound transmission left base Abdominal not distended not tender Extremities no edema Neurologic nonfocal Assessment and plan: Streptococcus pneumoniae bacteremia: * Escalate ceftriaxone to 2 g a day with azithromycin * Repeat blood cultures 04/02 no growth 48 hours * Suspect pneumonia as source of bacteremia * Adjust antibiotics according to sensitivity at discharge to oral Dense community-acquired left lower lobe pneumonia with Streptococcus pneumoniae * placed on ceftriaxone azithromycin * May need prolonged IV course of ceftriaxone due to have densely infiltrated * Repeat chest x-ray Paroxysmal atrial fibrillation rapid ventricular response likely secondary to cardiotoxicity from pneumonia * Started on IV diltiazem but converted to sinus rhythm and then converted back to atrial fibrillation * Echocardiogram Chronic medical conditions: * Scoliosis * Gout * Humerus fracture (04/01/24) * Basal cell adenocarcinoma * DVT (deep venous thrombosis) (~02/2023) * SVT (supraventricular tachycardia) * HLD (hyperlipidemia) * COPD (chronic obstructive pulmonary disease) * Osteoarthritis * Chronic airway obstruction * Rosacea * Diabetes * HTN (hypertension) DVT prophylaxis * covered with anticoagulation Code status: * Full code blue Disposition: * Inpatient anticipate 3 days of hospitalization after which we will decide continue treatment we will need to be Time based billin minutes were involved in the evaluation of this patient including direct patient evaluation in-person physical examination of the patient review of imaging as well as objective laboratory findings and discussion with emergency provider and treating team in the intensive care unit Exam Vital Signs (past 8 hours): - 04/04/25 08:36 Pulse Rate 105 H Blood Pressure 142/63 H Fraction of Inspired Oxygen 28 Oxygen Delivery Method Nasal Cannula Oxygen Flow Rate 2 Objective Labs 04/04/25 05:07 04/04/25 05:07 Labs: Laboratory Results - last 24 hr 04/03/25 04/03/25 04/04/25 16:29 20:49 05:07 WBC 8.6 RBC 3.56 L Hgb 10.7 L Hct 30.6 L MCV 86.0 MCH 30.2 MCHC 35.1 RDW 16.0 H Plt Count 410 H Neut % (Auto) Not Reportable Lymph % (Auto) Not Reportable Sutton % (Auto) Not Reportable Eos % (Auto) Not Reportable Baso % (Auto) Not Reportable Lymph # (Auto) Not Reportable Sutton # (Auto) Not Reportable Baso # (Auto) Not Reportable Total Counted 100 Seg Neutrophils % 57.0 Band Neutrophils % 4.0 Lymphocytes % (Manual) 25.0 Monocytes % (Manual) 12.0 H Eosinophils % (Manual) 2.0 Neutrophils # (Manual) 5246 RBC Morphology Normal morphology Sodium 130 L Potassium 4.0 Chloride 97 L Carbon Dioxide 26 BUN 56 H Creatinine 1.57 H Estimated GFR 33 L BUN/Creatinine Ratio 35.7 H Glucose 195 H POC Whole Bld Glucose 290 H 269 H Calcium 9.9 PFSH Medical History Scoliosis Gout Humerus fracture (04/01/24) Basal cell adenocarcinoma DVT (deep venous thrombosis) (~02/2023) SVT (supraventricular tachycardia) HLD (hyperlipidemia) COPD (chronic obstructive pulmonary disease) Osteoarthritis Chronic airway obstruction Rosacea Diabetes HTN (hypertension) Surgical History Hx of total knee arthroplasty (02/2023) H/O total hip arthroplasty H/O: hysterectomy History of gastric stapling Social History household members: none Smoking Status: Former smoker alcohol intake: current Assessment & Plan Time-Based Coding :: [TOTAL MINUTES] spent with patient and on the chart (including review of chart, obtaining history, exam, reviewing outside data, placing orders, documenting exam and treatment plan, and counseling patient) on [DATE].
[2025-04-04] MEDS: INSULIN GLARGINE 100 UNIT/ML 3ML PEN SUBCUT (13:18)
--- NOTE | 2025-04-04 15:35 | PT.IPTN ---
Current Diagnoses Pneumonia, unspecified organism (04/01/25) Physical Therapy Treatment Note M2 PT-IP Current Condition Start: 04/03/25 12:41 Freq: NEEDED Status: Active Protocol: Document 04/03/25 12:42 AMB (Rec: 04/03/25 12:56 AMB [id number]) Physical Therapy Current Condition Current Condition Evaluation Date 04/03/25 Treatment Diagnosis pneumonia, afib,weakness Onset Date 04/02/25 M3 PT-IP Subjective Start: 04/03/25 12:41 Freq: NEEDED Status: Active Protocol: Document 04/04/25 15:35 AB (Rec: 04/04/25 16:54 AB [id number]) Subjective Physical Therapy Visit Type Type Treatment Note Visit Start Time 15:35 Visit Stop Time 15:55 Number of INTERNAL AFFAIRS COMMANDER Visits 0 Physical Therapy Visit Comments Patient Comments agreeable to do PT M4 PT-IP Mobility and Gait Start: 04/03/25 12:41 Freq: NEEDED Status: Active Protocol: Document 04/04/25 15:35 AB (Rec: 04/04/25 16:54 AB [id number]) PT-Transfer Assessment Sit to and From Stand Sit to and from Minimal Assistance,1 Person Assistance,Use of Upper Stand Extremities Equipment Transfer Assistive Gait Belt,Front Wheeled Walker Device Orthotic/Prosthetic No Devices or Brace: Transfers Transfer Destination Chair,Bedside Commode Transfer Technique ambulated Transfer Ability Level of Assist Minimal Assistance,1 Person Assistance,Use of Upper Extremities Comments Mobility Comments pt sitting on the chair and agreed to do PT. O2 sat: 97% NH: 96-102. completed sit to stand min A and cues and ambulated ~ 25 ft using FWW min A. pt requested to use the commode during ambulation. required assist with hygiene care and brief management. sit to stand from bedside commode min a and cues and ambulated back to chair using FWW min A ~ 20 ft. positioned pt on chair. call light and table placed within reach. Gait Assessment Gait Gait Assistance Minimum Assistance Required: Distance (Feet) 25 Able to Maintain Yes Weight Bearing Status During Gait Assistive Devices Assistive Device Gait Belt,Front Wheeled Walker Orthotic/Prosthetic No Devices or Brace: Gait Deviations General Gait Pattern Decreased Stride Length,Decreased Feet Clearance,Flexed Trunk,Step-to Gait Factors Limiting Gait Function Factors Limiting Decreased Activity Tolerance,Decreased Strength, Gait Function Difficulty Following Directions,Limited Range of Motion ,Pain,Poor Balance,Poor Safety Awareness,Respiratory Distress M5 PT-IP Objective Assessments Start: 04/03/25 12:41 Freq: NEEDED Status: Active Protocol: Document 04/03/25 12:42 AMB (Rec: 04/03/25 12:56 AMB [id number]) Strength Lower Extremity Strength Assessment Bilaterally Impaired Hip 3 Knee 3 Ankle 3 M6 PT-IP Treatment Start: 04/03/25 12:41 Freq: NEEDED Status: Active Protocol: Document 04/04/25 15:35 AB (Rec: 04/04/25 16:54 AB [id number]) Physical Therapy Treatment Education Education Provided Safety M7 PT-IP Assessment and Plan Start: 04/03/25 12:41 Freq: NEEDED Status: Active Protocol: Document 04/04/25 15:35 AB (Rec: 04/04/25 16:54 AB [id number]) PT Summary Assessment and Plan Potential Rehabilitation Fair Potential Summary Impairments Pain,ROM,Strength,Balance,Coordination,Sensation,Tone, Cognition,Bed Mobility,Transfers,Gait,Activity Tolerance Progress Towards Slow Progress due to Medical Issues,Slow Progress due Goals to Activity Tolerance Assessment Summary pt requiring min A with mobility using FWW and presents with decrease activity tolerance with (+) SOB. pt will need assistance at home and currently will benefit from SNF rehab to improve overall strength and function. Goals Bed Mobility Goal Independent Transfer Goal Independent,Front Wheeled Walker Gait Goal Independent,Front Wheel Walker Gait Distance 200 Other Goals Ascend and descend 2 steps with one railing independently Days to Meet Goals 10 Frequency of Treatment Frequency Of Once a Day Treatment Treatment Plan Physical Therapy Bed Mobility Training,Transfer Training,Gait Training, Treatment Plan Therapeutic Exercise,Balance Retraining,Discharge Planning Recommendations To Nursing Amount of Assist 1 Person Assist Needed Discharge Recommendations PT Discharge SNF Rehab Recommendations Transportation Needs Private Vehicle at Discharge - PT assist 1
--- NOTE | 2025-04-04 15:45 | CM.DPNOTE ---
DCP Note DERRICK BOAT RUNNER reviewed EMR Per provider, could be cleared to DC tomorrow. Per OT, pt now wishes for SNF. DERRICK BOAT RUNNER confirmed with pt hopeful for SNF at . Christine kindly sent ref to Veronica at . per Veronica can accept as long as pt's pneumonia/acute COPD exacerbation is improving and not resolved. DERRICK BOAT RUNNER updated pt in room. Time pending for Wed dc to . DERRICK BOAT RUNNER completed PASRR. P: dc tomorrow to time pending. Will continue to follow closely for DCP coordination ROBSON Bailey
[2025-04-04] MEDS: ATORVASTATIN 20 MG TABLET 40 MG PO (17:18)
[2025-04-04] MEDS: VANCOMYCIN 750 MG/150 ML PIGGYBACK 150 MG IV (18:29)
[2025-04-04] MEDS: MAGNESIUM CHLORIDE 64 MG TABLET PO (20:14)
[2025-04-04] MEDS: DOCUSATE 100 MG CAPSULE PO (20:14)
[2025-04-04] MEDS: SENNOSIDES 8.6 MG TABLET 17.2 MG PO (20:14)
[2025-04-04] MEDS: INSULIN GLARGINE 100 UNIT/ML 3ML PEN 25 UNIT SUBCUT (20:22)
[2025-04-05] VITALS (59 sets, daily range): BP systolic 119–151; BP diastolic 56–63; PULSE 93–135; RESP 19–43; TEMP 36.2–36.9; O2SAT 93–99
--- NOTE | 2025-04-05 07:55 | P.PN_ITS ---
Subjective Subjective Interval history: Summary: Chief complaint: Pleuritic chest pain secondary to dense pneumonia with precipitant atrial fibrillation rapid ventricular response Streptococcus pneumoniae bacteremia History of present illness: 04/01: 79-year-old with PAF and chronic DVT on Xarelto was seen in the emergency room 2 nights ago discharged home with presumed treatment for pleuritic chest pain did not seem to be infectious returned today. Findings significant for very dense left lower lobe pneumonia on CT which is retrocardiac and very unimpressive on chest x-ray with small pleural effusion and paroxysmal atrial fibrillation with rapid ventricular response. Patient admitted for pneumonia and probable precipitation of atrial fibrillation secondary to cardiotoxicity from pneumonia Hospital course: 04/02: Patient has remained in sinus rhythm overnight 2/ blood cultures positive for Gram-positive cocci patient is feeling better still having some blurred symptoms with his are improved no rigors overnight vital signs stable with good oxygenation patient reports 1 sick contact prior to coming in also pleuritic symptoms 04/03: Patient fatigued noticing that her blood sugars are elevated overnight culture and sensitivity for Streptococcus pneumoniae is currently on ceftriaxone 2nd set of blood cultures no growth in 24 hours Blood culture 1. Streptococcus pneumoniae M.I.C. RX --------- --- * Clindamycin <=0.25 S * Erythromycin <=0.12 S * Levofloxacin <=0.25 S * Tetracycline <=0.25 S * Trimethoprim/Sulfamethoxazole <=10 S 04/04: Patient feeling more fatigued with more malaise today rhythm is back into atrial fibrillation diminished breath sounds bilaterally lungs heart irregularly irregular S: Still short of breath, and on oxygen. No chest pain. No fevers overnight. She was not confused. She does have bacteremia with Streptococcus. O: NAD, alert and oriented. Fluent speech. Lungs are clear, normal rate and effort. Heart is regular, no murmur gallop or rub. Abdomen is soft, non distended. Extremities are free of edema. IMAGING: CXR: Persistent left base opacity including left pleural effusion, slightly increased compared to prior versus increasing volume loss. CHEST CT: Dense left lower lobe infiltrate can be seen. Small left-sided pleural effusion. 3 cm right thyroid nodule. When clinically appropriate, a follow-up thyroid ultrasound is recommended for further evaluation. Atherosclerotic calcification of the aorta, yet without a dasia acute abnormality, to the limits of this noncontrast study. Additional findings: Bilateral shoulder arthroplasty hardware Gastric postoperative change A/P: Streptococcus pneumoniae and bacteremia: * Escalate ceftriaxone to 2 g a day with azithromycin * Repeat blood cultures 04/02 no growth 48 hours * Suspect pneumonia as source of bacteremia * Adjust antibiotics according to sensitivity at discharge to oral Dense community-acquired left lower lobe pneumonia with Streptococcus pneumoniae * placed on ceftriaxone azithromycin * May need prolonged IV course of ceftriaxone due to have densely infiltrated * Repeat chest x-ray Paroxysmal atrial fibrillation rapid ventricular response likely secondary to cardiotoxicity from pneumonia * Started on IV diltiazem but converted to sinus rhythm and then converted back to atrial fibrillation * Echocardiogram Chronic medical conditions: * Scoliosis * Gout * Humerus fracture (04/01/24) * Basal cell adenocarcinoma * DVT (deep venous thrombosis) (~02/2023) * SVT (supraventricular tachycardia) * HLD (hyperlipidemia) * COPD (chronic obstructive pulmonary disease) * Osteoarthritis * Chronic airway obstruction * Rosacea * Diabetes * HTN (hypertension) PLAN: -we will place midline today for IV antibiotics at a longer course given her bacteremia. -discharge planning include residential facility. DVT prophylaxis * covered with anticoagulation Code status: * Full code blue Disposition: * Inpatient anticipate 3 days of hospitalization after which we will decide continue treatment we will need to be Exam Vital Signs (past 8 hours): - 04/05/25 00:00 04/05/25 00:30 04/05/25 00:40 Temperature 97.8 F Pulse Rate 96 H 95 H 98 H Respiratory Rate 19 20 21 Blood Pressure Pulse Oximetry 97 Oxygen Flow Rate 04/05/25 00:40 04/05/25 01:00 04/05/25 01:30 Temperature Pulse Rate 96 H 93 H Respiratory Rate 21 20 Blood Pressure 145/63 H Pulse Oximetry Oxygen Flow Rate 04/05/25 02:00 04/05/25 02:30 04/05/25 03:00 Temperature Pulse Rate 99 H 97 H 100 H Respiratory Rate 20 21 21 Blood Pressure Pulse Oximetry Oxygen Flow Rate 04/05/25 03:30 04/05/25 03:45 04/05/25 03:45 Temperature Pulse Rate 103 H 108 H Respiratory Rate 21 25 H Blood Pressure 151/62 H Pulse Oximetry 94 Oxygen Flow Rate 04/05/25 04:00 04/05/25 04:30 04/05/25 05:00 Temperature Pulse Rate 105 H 100 H 101 H Respiratory Rate 25 H 21 21 Blood Pressure Pulse Oximetry Oxygen Flow Rate 04/05/25 05:30 04/05/25 06:00 04/05/25 06:30 Temperature Pulse Rate 101 H 101 H 102 H Respiratory Rate 20 20 22 Blood Pressure Pulse Oximetry Oxygen Flow Rate 04/05/25 07:31 Temperature 98.2 F Pulse Rate 108 H Respiratory Rate 22 Blood Pressure 135/60 Pulse Oximetry 98 Oxygen Flow Rate 2 Fraction of Inspired Oxygen 28 SaO2/FiO2 Ratio 346 Oxygen Delivery Method Nasal Cannula Oxygen Flow Rate 2 Objective Labs 04/04/25 05:07 04/04/25 05:07 Labs: Laboratory Results - last 24 hr 04/04/25 04/04/25 04/04/25 13:14 16:24 20:18 POC Whole Bld Glucose 306 H 299 H 180 H D PFSH Medical History Scoliosis Gout Humerus fracture (04/01/24) Basal cell adenocarcinoma DVT (deep venous thrombosis) (~02/2023) SVT (supraventricular tachycardia) HLD (hyperlipidemia) COPD (chronic obstructive pulmonary disease) Osteoarthritis Chronic airway obstruction Rosacea Diabetes HTN (hypertension) Surgical History Hx of total knee arthroplasty (02/2023) H/O total hip arthroplasty H/O: hysterectomy History of gastric stapling Social History household members: none Smoking Status: Former smoker alcohol intake: current Assessment & Plan Time-Based Coding :: [TOTAL MINUTES] spent with patient and on the chart (including review of chart, obtaining history, exam, reviewing outside data, placing orders, documenting exam and treatment plan, and counseling patient) on [DATE].
[2025-04-05] MEDS: INSULIN LISPRO 100 UNIT/ML 3ML VIAL SUBCUT ×3 (08:42→17:41)
[2025-04-05] MEDS: INSULIN LISPRO 100 UNIT/ML 3ML VIAL 8 UNIT SUBCUT ×3 (08:42→17:42)
[2025-04-05] MEDS: FISH OIL 1,000 MG CAPSULE 1000 MG PO (08:43)
[2025-04-05] MEDS: MULTIVITAMIN 1 TABLET 1 TAB PO (08:43)
[2025-04-05] MEDS: LOSARTAN 25 MG TABLET PO (08:43)
[2025-04-05] MEDS: APIXABAN 5 MG TABLET 2.5 MG PO ×2 (08:43→22:07)
[2025-04-05] MEDS: SODIUM CHLORIDE 0.9% FLUSH 10 ML IV ×2 (08:43→22:16)
[2025-04-05] MEDS: cefTRIAXone 2,000 MG in SODIUM CHLORIDE 0.9% 100 ML 200 MG IV (08:43)
[2025-04-05] MEDS: CHOLECALCIFEROL (VITAMIN D3) 5,000 UNIT TABLET 5000 UNIT PO (08:43)
--- NOTE | 2025-04-05 09:29 | PC.NURSE ---
Dayshift note: pt is noting some bright red hemoptysis this morning when spitting in to tissue, pt states no excessive coughing with this, just whenever she feels she needs to spit. Dr Britton updated, no new orders at this time. Call light within reach, care ongoing.
--- NOTE | 2025-04-05 10:43 | PT.IPTN ---
Current Diagnoses Pneumonia, unspecified organism (04/01/25) Physical Therapy Treatment Note M2 PT-IP Current Condition Start: 04/03/25 12:41 Freq: NEEDED Status: Active Protocol: Document 04/03/25 12:42 AMB (Rec: 04/03/25 12:56 AMB [id number]) Physical Therapy Current Condition Current Condition Evaluation Date 04/03/25 Treatment Diagnosis pneumonia, afib,weakness Onset Date 04/02/25 M3 PT-IP Subjective Start: 04/03/25 12:41 Freq: NEEDED Status: Active Protocol: Document 04/05/25 10:43 AB (Rec: 04/05/25 14:10 AB [id number]) Subjective Physical Therapy Visit Type Type Treatment Note Visit Start Time 10:43 Visit Stop Time 11:00 Number of STATIONS SUPERINTENDENT Visits 0 Physical Therapy Visit Comments Patient Comments agreeable to do PT M4 PT-IP Mobility and Gait Start: 04/03/25 12:41 Freq: NEEDED Status: Active Protocol: Document 04/05/25 10:43 AB (Rec: 04/05/25 14:10 AB [id number]) PT-Transfer Assessment Sit to and From Stand Sit to and from Moderate Assistance,1 Person Assistance,Use of Upper Stand Extremities Equipment Transfer Assistive Gait Belt,Front Wheeled Walker Device Orthotic/Prosthetic No Devices or Brace: Comments Mobility Comments pt sitting on the chair and agreeable to do PT. completed sit to stand mod A and cues and ambulated in room ~ 25 ft using FWW min A and cues. presents with unsteady slow paced gait. pt unable to walk farther and sat back on chair. NE at rest: 108-109 but increase to 137 during ambulation. positioned pt on the chair. call light and table placed within reach. NE at end of PT session: 103. nurse aware. Gait Assessment Gait Gait Assistance Minimum Assistance,1 Person Assist Required: Distance (Feet) 25 Able to Maintain Yes Weight Bearing Status During Gait Assistive Devices Assistive Device Gait Belt,Front Wheeled Walker Orthotic/Prosthetic No Devices or Brace: Gait Deviations General Gait Pattern Antalgic,Decreased Stride Length,Decreased Feet Clearance,Flexed Trunk,Step-to Gait Factors Limiting Gait Function Factors Limiting Decreased Activity Tolerance,Decreased Strength, Gait Function Difficulty Following Directions,Limited Range of Motion ,Poor Balance,Poor Safety Awareness M5 PT-IP Objective Assessments Start: 04/03/25 12:41 Freq: NEEDED Status: Active Protocol: Document 04/03/25 12:42 AMB (Rec: 04/03/25 12:56 AMB [id number]) Strength Lower Extremity Strength Assessment Bilaterally Impaired Hip 3 Knee 3 Ankle 3 M6 PT-IP Treatment Start: 04/03/25 12:41 Freq: NEEDED Status: Active Protocol: Document 04/05/25 10:43 AB (Rec: 04/05/25 14:10 AB [id number]) Physical Therapy Treatment Education Education Provided Safety M7 PT-IP Assessment and Plan Start: 04/03/25 12:41 Freq: NEEDED Status: Active Protocol: Document 04/05/25 10:43 AB (Rec: 04/05/25 14:10 AB [id number]) PT Summary Assessment and Plan Potential Rehabilitation Fair Potential Summary Impairments Pain,ROM,Strength,Balance,Coordination,Sensation,Tone, Cognition,Bed Mobility,Transfers,Gait,Activity Tolerance Progress Towards Slow Progress due to Medical Issues,Slow Progress due Goals to Activity Tolerance Assessment Summary pt able to ambulated using FWW min A ~ 25 ft but continues to have decrease activity tolerance and NE increased to 137 with activity. pt will benefit from SNF rehab to improve overall strength and mobility. Goals Bed Mobility Goal Independent Transfer Goal Independent,Front Wheeled Walker Gait Goal Independent,Front Wheel Walker Gait Distance 200 Other Goals Ascend and descend 2 steps with one railing independently Days to Meet Goals 10 Frequency of Treatment Frequency Of Once a Day Treatment Treatment Plan Physical Therapy Bed Mobility Training,Transfer Training,Gait Training, Treatment Plan Therapeutic Exercise,Balance Retraining,Discharge Planning Precautions Other Precautions HR Recommendations To Nursing Amount of Assist 1 Person Assist Needed Discharge Recommendations PT Discharge SNF Rehab Recommendations Transportation Needs Private Vehicle at Discharge - PT assist 1
--- NOTE | 2025-04-05 13:59 | CM.DPNOTE ---
DCP Cont Discharge to anticipated tomorrow 04/06, midline being placed today 04/05. plan confirmed with Veronica at , patient remains aware and agreeable to plan. SHAY
--- NOTE | 2025-04-05 15:20 | OT.IP.TRT ---
Current Diagnoses Pneumonia, unspecified organism (04/01/25) Occupational Therapy Treatment Note M2 OT-IP Current Condition Start: 04/03/25 15:38 Freq: Status: Active Protocol: Document 04/03/25 15:39 [facility] (Rec: 04/03/25 15:57 [facility]) Occupational Therapy Current Condition Current Condition Evaluation Date 04/03/25 Treatment Diagnosis pneumonia, decreased self care Diagnosis Onset Date 04/01/25 M3 OT- IP Subjective and Pain Start: 04/03/25 15:38 Freq: Status: Active Protocol: Document 04/05/25 15:20 [facility] (Rec: 04/05/25 16:29 [facility] Desktop) OT- Subjective Occupational Therapy Visit Type Type Treatment Note Visit Start Time 14:30 Visit Stop Time 15:20 Occupational Therapy Visit Comments Patient Comments Pt agreed to shower Patient/Caregiver To get better. Goals OT Pain Assessment Pain When Pain Assessed At Rest Pain Present Pain Present Denied Pain M4 OT- IP ADL's Start: 04/03/25 15:38 Freq: Status: Active Protocol: Document 04/05/25 15:20 [facility] (Rec: 04/05/25 16:29 [facility] Desktop) OT ADL-Dressing General Eval Lower Body Dressing Moderate Assistance,Maximum Assistance Ability Areas Needing Underpants/Brief,Socks Assistance Comments OT Dressing Comments Pt needing assist as fatigued from showering. OT ADL-Bathing Bathing Type Bathing Type Shower General Evaluation Bathing Ability Moderate Assistance,Maximal Assistance Areas Needing Wash/Dry Back,Wash/Dry Perineal Area,Wash/Dry Lower Assistance Extremities Devices Bathing Equipment Hand Held Shower Sprayer,Shower Chair with Arms,Grab Bars Comments OT Bathing Comments Pt will greatly benefit from a shower chair at home if her built in seat in not the appropriate set up for her . Pt tires quickly and needing assist for completeness , BLE, back, hair, and perineal area. M5 OT- IP IADL's Start: 04/03/25 15:38 Freq: Status: Active Protocol: Document 04/03/25 15:39 [facility] (Rec: 04/03/25 15:57 [facility]) OT-Instrumental Activities of Daily Living Deficits IADL Deficits No Deficits Identified Home Safety Awareness Awareness of Need Good Awareness for Assistance at Home Ability to Problem Able to Problem Solve Solve Emergency Situations Medication Management Medication No Deficits Identified Management Money Management Money Management No Deficits Identified Meal Preparation Meal Preparation No Deficits Identified [employer] No Deficits Identified M6 OT- IP Functional Cognition Start: 04/03/25 15:38 Freq: Status: Active Protocol: Document 04/04/25 11:53 [facility] (Rec: 04/04/25 12:27 [facility] Desktop) Cognitive Factors Limiting Selfcare Function Cognitive Comments Cognitive Assessment Pt states realizes that she feels too weak to be able Comments to care for herself at this time and wanting to go to skilled rehab first. M7 OT- IP Mobility and Balance Start: 04/03/25 15:38 Freq: Status: Active Protocol: Document 04/05/25 15:20 [facility] (Rec: 04/05/25 16:29 [facility] Desktop) OT-Transfer Assessment Sit to and From Stand Sit to and from Minimal Assistance Stand Transfers Transfer Ability Minimal Assistance Technique Transfer Destination Chair,Shower Stall Transfer Technique Stand Step Pivot Devices Transfer Assistive Gait Belt,Front Wheeled Walker Devices Comments Mobility Comments SHREE to stand and SHREE with FWW to help step over the threshold of the shower. Pt on 2L O2 and at 95%. OT- Balance Assessment Sitting Balance and Reactions Static Sitting Normal Balance Ability Dynamic Sitting Good Balance Ability Standing Balance and Reactions Static Standing Good Balance Ability Dynamic Standing Fair Balance Ability M8 OT- IP Objective Assessments Start: 04/03/25 15:38 Freq: Status: Active Protocol: Document 04/03/25 15:39 [facility] (Rec: 04/03/25 15:57 [facility]) OT Gross Range of Motion Upper Extremity Range of Motion Assessment Left Impaired ROM Impairments L shoulder ~ 90 active flexion OT Strength Upper Extremity Strength Assessment Left Impaired Shoulder L 3 Hand Machine Strap Buckler Strength Hand Dominance Right Comments Strength Comments R UE with overall 4/5 strength, B photo engraver 4/5 OT-Muscle Tone Assessment Muscle Tone WNL Yes OT Sensation Assessment Edema Edema Absent M9 OT- IP Assessment and Plan Start: 04/03/25 15:38 Freq: Status: Active Protocol: Document 04/05/25 15:20 [facility] (Rec: 04/05/25 16:29 [facility] Desktop) OT Summary Assessment and Plan Potential Rehabilitation Good Potential Analytic Complexity Low at Evaluation Summary OT Impairments Range of Motion,Strength,Balance,Functional Mobility, Grooming,Dressing,Toileting,Bathing,Toilet Transfers, Shower Transfers,Activity Tolerance Progress Towards Progressing Toward Goals,Slow Progress due to Activity Goals Tolerance Assessment Summary Pt able to participate in showering today however gets fatigued quickly and needing assist to complete showering while seated. Pt to go to skilled rehab when medically stable. Goals Grooming Goal Independent Dressing Goal Independent,It Project Coordinator,Sock Aid Toileting Goal Independent Bathing Goal Independent Toilet Transfer Goal Independent Shower Transfer Goal Independent,Walk-in Shower,Grab Bars Days to Meet Goals 15 Frequency of Treatment Other frequency 5x/wk Treatment Plan OT Treatment Plan ADL Training,Functional Mobility,Therapeutic Exercises, Patient/Family Education,Discharge Planning Discharge Recommendations OT Discharge SNF Rehab Recommendations Transportation Needs Private Vehicle,Wheelchair/Cabulance at Discharge
[2025-04-05] MEDS: ATORVASTATIN 20 MG TABLET 40 MG PO (17:48)
[2025-04-05] MEDS: INSULIN GLARGINE 100 UNIT/ML 3ML PEN 30 UNIT SUBCUT (22:14)
[2025-04-05] MEDS: MAGNESIUM CHLORIDE 64 MG TABLET PO (22:15)
[2025-04-06] VITALS (18 sets, daily range): BP systolic 135–143; BP diastolic 61–65; PULSE 95–113; RESP 20–252; TEMP 36.8; O2SAT 93–96
[2025-04-06] MEDS: INSULIN LISPRO 100 UNIT/ML 3ML VIAL SUBCUT (09:26)
[2025-04-06] MEDS: INSULIN LISPRO 100 UNIT/ML 3ML VIAL 8 UNIT SUBCUT (09:27)
[2025-04-06] MEDS: FISH OIL 1,000 MG CAPSULE 1000 MG PO (09:28)
[2025-04-06] MEDS: APIXABAN 5 MG TABLET 2.5 MG PO (09:28)
[2025-04-06] MEDS: LOSARTAN 25 MG TABLET PO (09:28)
[2025-04-06] MEDS: cefTRIAXone 2,000 MG in SODIUM CHLORIDE 0.9% 100 ML 200 MG IV (09:28)
[2025-04-06] MEDS: CHOLECALCIFEROL (VITAMIN D3) 5,000 UNIT TABLET 5000 UNIT PO (09:28)
[2025-04-06] MEDS: MULTIVITAMIN 1 TABLET 1 TAB PO (09:28)
[2025-04-06] MEDS: SODIUM CHLORIDE 0.9% FLUSH 10 ML IV (09:28)
--- NOTE | 2025-04-06 10:15 | P.DS_ITS ---
History of Present Illness History of Present Illness Chief complaint: Pleuritic CP/dx pleurisy t-2 Narrative: From H&P: Pleuritic chest pain secondary to dense pneumonia with precipitant atrial fibrillation rapid ventricular response History of present illness: 04/01: 79-year-old with PAF and chronic DVT on Xarelto was seen in the emergency room 2 nights ago discharged home with presumed treatment for pleuritic chest pain did not seem to be infectious returned today. Findings significant for very dense left lower lobe pneumonia on CT which is retrocardiac and very unimpressive on chest x-ray with small pleural effusion and paroxysmal atrial fibrillation with rapid ventricular response. Patient admitted for pneumonia and probable precipitation of atrial fibrillation secondary to cardiotoxicity from pneumonia Discharge Providers Provider Date of admission: 04/01/25 12:34 Discharge Date: 04/06/25 Primary care physician: Jesse Rossi MD Consults: 04/02/25 22:38 Consult to Pharmacy Routine Comment: fall risk 04/03/25 11:46 Consult to Occupational Therapy Evaluate & Treat Comment: Physician Instructions: Evaluate and treat Consult to Physical Therapy Evaluate & Treat Comment: Physician Instructions: Evaluate and Treat 04/04/25 15:13 Consult to Pharmacy Routine Comment: high fall risk Discharge provider: Zac Britton MD Summary Hospital Course Discharge Diagnosis: Streptococcus pneumoniae and bacteremia, improving. * Escalate ceftriaxone to 2 g a day with azithromycin * Repeat blood cultures 04/02 no growth 48 hours * pneumonia as source of bacteremia * 14 days Ceftriaxone. Dense community-acquired left lower lobe pneumonia with Streptococcus pneumoniae Paroxysmal atrial fibrillation rapid ventricular response, improved. Chronic medical conditions, stable: * Scoliosis * Gout * Humerus fracture (04/01/24) * Basal cell adenocarcinoma * DVT (deep venous thrombosis) (~02/2023) * SVT (supraventricular tachycardia) * HLD (hyperlipidemia) * COPD (chronic obstructive pulmonary disease) * Osteoarthritis * Chronic airway obstruction * Rosacea * Diabetes * HTN (hypertension) Hospital Course: Hospital course: 04/02: Patient has remained in sinus rhythm overnight 2/2 blood cultures positive for Gram-positive cocci patient is feeling better still having some blurred symptoms with his are improved no rigors overnight vital signs stable with good oxygenation patient reports 1 sick contact prior to coming in also pleuritic symptoms 04/03: Patient fatigued noticing that her blood sugars are elevated overnight culture and sensitivity for Streptococcus pneumoniae is currently on ceftriaxone 2nd set of blood cultures no growth in 24 hours Blood culture 1. Streptococcus pneumoniae M.I.C. RX --------- --- * Clindamycin <=0.25 S * Erythromycin <=0.12 S * Levofloxacin <=0.25 S * Tetracycline <=0.25 S * Trimethoprim/Sulfamethoxazole <=10 S 04/04: Patient feeling more fatigued with more malaise today rhythm is back into atrial fibrillation diminished breath sounds bilaterally lungs heart irregularly irregular. 04/05. Oral diltiazem dose escalated due to tachycardia. 04/06: Diltiazem dose increased to 180 daily with improved heart rate, off oxygen and feels generally good. Status at Discharge Cognitive/behavioral status at discharge: oriented Functional status at discharge: independent ambulation Overall status at discharge: patient is progressing back to baseline Time Spent with Patient Time spent: Greater than 30 minutes Exam Vital Signs (past 8 hours): - 04/06/25 02:30 04/06/25 03:00 04/06/25 03:30 Temperature Pulse Rate 100 H 97 H 99 H Respiratory Rate 25 H 20 21 Blood Pressure Pulse Oximetry Oxygen Delivery Method Oxygen Flow Rate 04/06/25 04:00 04/06/25 04:30 04/06/25 05:00 Temperature Pulse Rate 98 H 96 H 97 H Respiratory Rate 22 21 21 Blood Pressure Pulse Oximetry Oxygen Delivery Method Oxygen Flow Rate 04/06/25 05:30 04/06/25 06:00 04/06/25 06:30 Temperature Pulse Rate 95 H 103 H 96 H Respiratory Rate 21 23 21 Blood Pressure Pulse Oximetry Oxygen Delivery Method Oxygen Flow Rate 04/06/25 07:00 04/06/25 07:00 04/06/25 07:59 Temperature 98.3 F Pulse Rate 113 H Respiratory Rate 30 H Blood Pressure 143/65 H Pulse Oximetry 95 96 Oxygen Delivery Method Nasal Cannula Nasal Cannula Oxygen Flow Rate 2 2 04/06/25 09:33 Temperature Pulse Rate 104 H Respiratory Rate 252 H Blood Pressure Pulse Oximetry 95 Oxygen Delivery Method Nasal Cannula Oxygen Flow Rate 2 Fraction of Inspired Oxygen 28 SaO2/FiO2 Ratio 346 Oxygen Delivery Method Nasal Cannula Oxygen Flow Rate 2 Narrative Exam Narrative: NAD, alert and oriented. Fluent speech. Lungs are clear, normal rate and effort. Heart is irregular, no murmur gallop or rub. Abdomen is soft, non distended. Extremities are free of edema. Objective ECG Impression: Atrial fibrillation with premature ventricular or aberrantly conducted complexes Imaging Multiple studies:: Radiologist's impression: CXR: Persistent left base opacity including left pleural effusion, slightly increased compared to prior versus increasing volume loss. CHEST CT: Dense left lower lobe infiltrate can be seen. Small left-sided pleural effusion. 3 cm right thyroid nodule. When clinically appropriate, a follow-up thyroid ultrasound is recommended for further evaluation. Atherosclerotic calcification of the aorta, yet without a dasia acute abnormality, to the limits of this noncontrast study. Additional findings: Bilateral shoulder arthroplasty hardware Gastric postoperative change Labs 04/04/25 05:07 04/04/25 05:07 Labs: Laboratory Results - last 24 hr 04/05/25 04/05/25 04/05/25 11:01 16:04 20:38 POC Whole Bld Glucose 205 H 187 H 133 H 04/06/25 07:47 POC Whole Bld Glucose 149 H PFSH Medical History Scoliosis Gout Humerus fracture (04/01/24) Basal cell adenocarcinoma DVT (deep venous thrombosis) (~02/2023) SVT (supraventricular tachycardia) HLD (hyperlipidemia) COPD (chronic obstructive pulmonary disease) Osteoarthritis Chronic airway obstruction Rosacea Diabetes HTN (hypertension) Surgical History Hx of total knee arthroplasty (02/2023) H/O total hip arthroplasty H/O: hysterectomy History of gastric stapling Social History household members: none Smoking Status: Former smoker alcohol intake: current Discharge Assessment & Plan Assessment and Plan Assessment: 1. Strept pneumonia and bacteremia. 2. AF with RVR Plan of Treatment: Stable for discharge to custodial facility. Has a midline in the left arm and we will complete a total of 14 days of therapy. Last day of ceftriaxone 2 g IV Q 24 hours he was April 15. Discharge Plan Discharge Plan Patient Disposition: SNF Under care of provider: Provider. Provider Discharge Comment: Stable for discharge to custodial for rehabilitation efforts. Discharge orders & Medications Prescriptions: New diltiazem HCl [Cardizem CD] 180 mg Capsule,Extended Release 24hr 180 mg PO DAILY Qty: 30 0RF hydrocodone-acetaminophen 5-325 mg Tablet 1 tab PO Q6H PRN (Reason: Pain, Moderate (4-6)) Qty: 15 0RF ceftriaxone 2 gram Recon Soln 2,000 mg IV Q24H Qty: 9 0RF Continued cholecalciferol (vitamin D3) 5,000 UNIT capsule 125 mcg PO DAILY Qty: 0 omega 2-wuo-joy-fish oil [Fish Oil] 1,000 MG capsule 1 cap PO DAILY Qty: 0 atorvastatin 40 mg Tablet 40 mg PO QPM metformin 1,000 mg Tablet 500 mg PO BID losartan 25 mg Tablet 25 mg PO DAILY albuterol sulfate 90 mcg/actuation Hfa Aerosol Inhaler 2 puff INHALATION 6XD PRN (Reason: SOB) hydrochlorothiazide 12.5 mg Tablet 12.5 mg PO QAM acetaminophen 325 mg Tablet 650 mg PO Q6H PRN (Reason: Fever/Mild Pain (1-3)) Qty: 240 0RF docusate sodium 100 mg Capsule 100 mg PO BID PRN (Reason: constipation) Qty: 60 1RF Adult One Daily Multivitamin capsule 1 cap PO DAILY sennosides [senna] 8.6 mg Tablet 17.2 mg PO BEDTIME PRN (Reason: Constipation) Rx Instructions: give on day 4 if no BM calcium-magnesium 750-465 mg Tablet 1 tab PO DAILY Rx Instructions: daily suplement magnesium chloride 64 mg tablet,delayed release (DR/EC) 64 mg PO BEDTIME Qty: 30 0RF glimepiride 2 mg tablet 2 mg PO QAM Follow up/Referrals: Jesse Rossi MD [Primary Care Provider, Internal Medicine] Discharge Health Status Multidrug resistant organism: No MDRO Diet/Activity/Treatments Diet: Carb-consistent/Diabetic Special [facility] Reason for rehabilitation: Recovery r/t decondition Rehab type: Physical therapy and Occupational therapy Visit Report/Discharge Packet Stand Alone Forms: Patient Portal/API Discharge Data Primary Care Provider: Jesse Rossi
--- NOTE | 2025-04-06 10:59 | CM.DPNOTE ---
Addendum entered by ROBSON Valadez 04/06/25 12:54: ADD: DC Summary emailed to Veronica at . Original Note: DC Note Patient has been accepted for admission today at [facility]- transport has been arranged for [facility] [facility]. Patient remains agreeable to plan. Emailed Veronica the following: SNF order/Discharge report, signed med list, Rx, and signed PASRR . Will plan to send signed DC Summary when available. Bedside RN updated and will call report. Plan: Discharge to today via van, [facility] at [address] JW
== END 2025-04-06 11:27 | DRG 194 ==
LOC: ED 10:38 → AC 12:34 → ICU 12:57
PROVIDERS: Pharmacist Pharmacist Clinician (PhC)/ Clinical Pharmacy Specialist; Admitting Provider Internal Medicine; Emergency Provider Family Medicine; PCP Internal Medicine; Referring Provider Family Medicine; Visit Provider Internal Medicine
DX: J13 Pneumonia due to Streptococcus pneumoniae (principal); J90 Pleural effusion, not elsewhere classified; R78.81 Bacteremia; I48.0 Paroxysmal atrial fibrillation; E78.5 Hyperlipidemia, unspecified; E11.9 Type 2 diabetes mellitus without complications; I10 Essential (primary) hypertension; J44.9 Chronic obstructive pulmonary disease, unspecified; Z87.891 Personal history of nicotine dependence; Z79.01 Long term (current) use of anticoagulants; Z86.718 Personal history of other venous thrombosis and embolism; Z79.84 Long term (current) use of oral hypoglycemic drugs
CPT/HCPCS: 36415; 71045; 71250; 80048; 80053; 82550; 82805; 82962; 83036; 83605; 83690; 83735; 83880; 84484; 85007; 85025; 85379; 85610; 85730; 87040; 87077; 87154; 87186; 87637; 87797; 93005; 93010; 94640; 94760; 96374; 96375; 96376; 97116; 97162; 97165; 97530; 97535; 99284; 99285; A9270; J0696; J1815; J1938; J2272; J3375; J7050; J7613

== ENCOUNTER → 2025-04-14 08:44 | Outpatient (ROUT) | payer MEDICARE, OTHER, SELFPAY ==
[2025-04-01 14:00] VITALS: BMI 28.2
== END ==
PROVIDERS: PCP Internal Medicine; Visit Provider Hospitalist
DX: B02.8 Zoster with other complications (principal)
CPT/HCPCS: 87070; 87075; 87205